=== PATIENT | female | born 1985 | race Caucasian/White ===

== ENCOUNTER 2016-11-01 11:24 | Emergency (ER) | payer OTHER ==
[~2016-11-01] VITALS: Ht 165.1 cm; Wt 147.6 kg
[~2016-11-01 11:24] MED LIST: CITA20TA9 PO; OXYC-57 PO
[2016-11-01 11:28] VITALS: TEMP 36.4; Ht 165.1 cm; Wt 147.6 kg
[2016-11-01] MEDS ORDERED: ALBUT/IPRATROP 3MG/0.5MG NEB 3 ML VIAL INH STA (11:53)
[2016-11-01] MEDS ORDERED: DULO-24 PO (11:56)
[2016-11-01] MEDS ORDERED: PHEN-905 PO (11:58)
[2016-11-01] MEDS ORDERED: GUAI1TAB69 PO (11:58)
--- NOTE | 2016-11-01 12:33 | DIAGNOSTIC IMAGING REPORT ---
CHEST 2 VIEWS ROUTINE CLINICAL HISTORY: cough, congestion COMPARISON STUDY: 04/08/2009 FINDINGS: The cardiac and mediastinal contours are normal. There is no evidence of focal pulmonary consolidation. There is no evidence of failure. No pleural effusions are visualized.[ IMPRESSION: No active disease in the chest. Electronically signed by: Schuyler Hickey M.D. 11/01/2016 12:31 PM Dictated Date/Time: 11/01/2016 12:31 PM
[2016-11-01 13:30] VITALS: BP 154/98; PULSE 84; O2SAT 97
[2016-11-01] MEDS ORDERED: VNTHFA/IN INH (13:32)
[2016-11-01] MEDS ORDERED: PRED20TA PO (13:32)
--- NOTE | 2016-11-01 15:43 | EMERGENCY ROOM VISIT NOTE ---
History Report prepared by Justine: Leoncio Kahn Under the Supervision of: Dr. Edil May M.D. First contact with patient: 11:40 Chief Complaint: COUGH Stated Complaint: COUGH, CHEST CONGESTION, BOYLE, FEVER Nursing Triage Summary: Triage note: pt wearing mask in triage. pt reports cough with brown sputum. pt reports head and chest congestions. pt reports symptoms x 3 days. History of Present Illness The patient is a 31 year old female who presents to the Emergency Room with complaints of a persistent cough starting about 3 days ago. She notes brown sputum production. The cough worsens at night. She also reports nasal and chest congestion, and intermittent chest pain. Two days ago, she had a vomiting episode which mostly consisted of phlegm. She has been taking Mucinex and NyQuil with some relief. The patient denies fevers, nausea, abdominal pain, or any other complaints. She denies any history of asthma, COPD, or diabetes. The patient has a history of bronchitis and reports similar symptoms. She received her flu shot this year. She had recent contact at work with two patients who had the flu. Source of History: patient Onset: about 3 days ago Position: other (global) Quality: other (cough) Timing: other (persistent) Modifying Factors (Relieving): other (Mucinex and NyQuil with some relief) Associated Symptoms: + chest pain, + vomiting, No abdominal pain, No fevers , No nausea Review of Systems See HPI for pertinent positives & negatives. A total of 10 systems reviewed and were otherwise negative. Past Medical & Surgical Medical Problems: (1) Anxiety State Nos (2) Cholelith W Ac Cholecyst (3) Deliver-Single Liveborn (4) Dysmenorrhea (5) Morbid Obesity (6) Tobacco Use Disorder (7) Urin Tract Infection Nos Family History No significant family history Social History Smoking Status: Current Every Day Smoker Alcohol Use: occasionally Drug Use: none Marital Status: Housing Status: lives with family Occupation Status: employed Current/Historical Medications Scheduled Albuterol Hfa (Ventolin Hfa), 3 PUFFS INH Q4H Duloxetine HCl (Cymbalta), 20 MG PO DAILY Guaifenesin (Mucinex Maximum Strength), 1,200 MG PO BID Vvkppybgeblvp-Ctydbscwoz-Xismu (Nyquil Severe Cold/Flu 5-6.25-10-325 mg/15Ml), 15 ML PO Q6H Prednisone (Prednisone), 0 PO DAILY Allergies Coded Allergies: No Known Allergies (Verified , ?, 11/01/16) Physical Exam Vital Signs Date Time Temp Pulse Resp B/P Pulse Ox O2 Delivery O2 Flow Rate FiO2 11/01/16 13:30 84 20 154/98 97 11/01/16 11:28 36.4 98 18 170/107 96 Room Air Physical Exam GENERAL: Patient is in no acute distress. HEENT: No acute trauma, normocephalic atraumatic, mucous membranes moist, mild nasal congestion, no throat erythema or exudate, no scleral icterus. NECK: No stridor, no adenopathy, no meningismus, trachea is midline. LUNGS: Diminished breath sounds, breath sounds are equal; no wheezing or rhonchi. Moist cough noted. HEART: Without murmurs gallops or rubs, regular rate and rhythm. ABDOMEN: Soft, nontender, bowel sounds positive, no hernias, no peritonitis. EXTREMITIES: No cyanosis or edema, full range of motion of all the joints without pain or difficulty, no signs for acute trauma. NEUROLOGIC: Oriented x 3, no acute motor or sensory deficits, no focal weakness. SKIN: No rash, no jaundice, no diaphoresis. Medical Decision & Procedures ER Provider Diagnostic Interpretation: X-ray results as stated below per interpretation by me and the radiologist: CHEST 2 VIEWS ROUTINE CLINICAL HISTORY: cough, congestion COMPARISON STUDY: 04/08/2009 FINDINGS: The cardiac and mediastinal contours are normal. There is no evidence of focal pulmonary consolidation. There is no evidence of failure. No pleural effusions are visualized.[ IMPRESSION: No active disease in the chest. Electronically signed by: Schuyler Hickey M.D. 11/01/2016 12:31 PM Dictated Date/Time: 11/01/2016 12:31 PM Laboratory Results Test 11/01/16 12:10 Influenza Type A Antigen Neg for Influ A (NEG) Influenza Type B Antigen Neg for Influ B (NEG) Laboratory results reviewed by me. Medications Administered Medications (Trade) Dose Ordered Sig/Robert Route Start Time Stop Time Status Last Admin Dose Admin Prednisone (PredniSONE TAB) 60 mg NOW STAT PO 11/01/16 11:53 11/01/16 11:55 DC 11/01/16 12:06 60 MG Albuterol/ Ipratropium (Duoneb) 3 ml NOW STAT INH 11/01/16 11:53 11/01/16 11:55 DC 11/01/16 12:06 3 ML ED Course 1140: The patient was evaluated in room B07. A complete history and physical exam was performed. 1153: DuoNeb 3 ml INH, Prednisone 60 mg PO 1328: Reevaluated the patient. Discussed results and discharge instructions: She verbalized understanding and agreement. The patient is ready for discharge. Medical Decision Differential diagnosis includes but is not limited to pneumonia, bronchitis, influenza, viral illness. The patient presents with upper respiratory symptoms. Chest x-ray does not show pneumonia or CHF. Influenza testing is negative. On exam, there was no pharyngitis. The patient's lungs were equal bilaterally although somewhat diminished bilaterally, no wheezing. She was not febrile or hypoxic. The patient received a DuoNeb, oral prednisone. She is being discharged on a prednisone taper, albuterol. Rest and hydration were encouraged. She appears to have a viral acute bronchitis, she can return if worsening. Impression Primary Impression: Acute bronchitis Scribe Attestation The scribe's documentation has been prepared under my direction and personally reviewed by me in its entirety. I confirm that the note above accurately reflects all work, treatment, procedures, and medical decision making performed by me. Departure Information Dispostion Home / Self-Care Prescriptions Prednisone (Prednisone) 20 Mg Tab 0 PO DAILY, #18 TAB 3 DAILY FOR 3 DAYS, THEN 2 DAILY FOR 3 DAYS, THEN 1 DAILY FOR 3 DAYS. Prov: Edil May M.D. 11/01/16 Albuterol Hfa (VENTOLIN HFA) 200 Puffs/42026 Mcg Aers 3 PUFFS INH Q4H, #1 INHALER Prov: Edil May M.D. 11/01/16 Referrals Ijeoma Zamora D.O. Forms HOME CARE DOCUMENTATION FORM, IMPORTANT VISIT INFORMATION Patient Instructions My [facility] Additional Instructions fluids rest continue the otc meds as needed tylenol for pain and fever albuterol 3 puffs every 4 hours prednisone as directed return for worsening symptoms
== END 2016-11-01 13:53 | disposition home or self-care (01) ==
LOC: C.EDB 11:25
DX: J20.9 Acute bronchitis, unspecified (principal); R11.10 Vomiting, unspecified; E66.01 Morbid (severe) obesity due to excess calories; F41.9 Anxiety disorder, unspecified; F17.200 Nicotine dependence, unspecified, uncomplicated; Z79.52 Long term (current) use of systemic steroids; Z79.899 Other long term (current) drug therapy

== ENCOUNTER 2017-01-20 17:42 | Emergency (ER) | payer BC, OTHER ==
[~2017-01-20] VITALS: Ht 165.1 cm; Wt 145.7 kg
[~2017-01-20 17:42] MED LIST changes: -CITA20TA9 PO; +DULO-24 PO; +GUAI1TAB69 PO; -OXYC-57 PO; +PHEN-905 PO; +PRED20TA PO; +VNTHFA/IN INH
[2017-01-20 18:17] VITALS: TEMP 37.5; Ht 165.1 cm; Wt 145.7 kg
[2017-01-20] MEDS ORDERED: CITA20TA9 PO (19:06)
[2017-01-20] MEDS ORDERED: CYCLOBENZAPRINE HCL 5 MG TAB PO STA (19:15)
[2017-01-20] MEDS ORDERED: CYCL10TA6 PO (19:19)
[2017-01-20] MEDS ORDERED: TRAM-10 PO (19:19)
[2017-01-20 19:36] VITALS: BP 156/100; PULSE 76; O2SAT 97
[2017-01-20] MEDS ORDERED: CYCLOBENZAPRINE HCL 10 MG TAB ONE (19:36)
--- NOTE | 2017-01-21 20:33 | EMERGENCY ROOM VISIT NOTE ---
ED Visit Note First contact with patient: 18:55 Chief Complaint: Neck pain. History of Present Illness: Ms. Krueger is a 31-year-old white female who ambulates into the ED complaining of thoracic back and neck pain. 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 She was initially evaluated by [employer] an MRI was performed and was negative. They felt her pain was not related to this injury and she was dismissed from [employer]. She goes on to report that over the last year she has had multiple exacerbations of her pain and has been seen in this ED as well as her primary care provider for her symptoms. 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 She went to work and her pain escalated and she left work to come to the ED for further evaluation and care. Currently she complains of pain that extends from the lower cervical spine extending inferiorly into the area between the scapula. Currently she describes her pain as a sharp and cramping sensation. She feels this is muscle spasm. She rates her discomfort 8/10. All movements of her back and palpation throughout the trapezius and rhomboid muscle groups increases her discomfort. She has not identified any alleviating factors related to the pain. She did report she took ibuprofen prior to arrival at the hospital without relief. She denies any associated fevers, chills, sweats, skin eruptions, skin color changes , recent direct trauma, headache, upper respiratory tract symptoms, shortness of breath, abdominal pain, urinary symptoms, upper extremity weakness/numbness/ tingling. Review of Systems: As noted above in history of present illness. 8 body systems were reviewed and found to be negative as noted above. Past Medical History: As previously noted, unspecified oral surgery, section and cholecystectomy. Current Medications: Celexa. Allergies to Medications: Patient denies. Social History: Patient is currently employed; she feels safe in her home environment; she admits to tobacco use and denies alcohol use. Physical Examination: Vital Signs: Date Time Temp Pulse Resp B/P Pulse Ox O2 Delivery O2 Flow Rate FiO2 01/20/17 19:36 76 18 156/100 97 01/20/17 18:17 37.5 81 17 169/115 98 Room Air GENERAL: 31-year-old female in moderate distress due to pain, nontoxic-appearing , afebrile and hemodynamically stable. NEUROLOGICAL: Awake, alert and oriented to person, place and time. Answering questions appropriately and following commands. Normal gait. Good hand eye coordination. No focal motor or sensory deficits. SKIN: Warm, dry and pink. No soft tissue eruptions or trauma noted. HEENT: Atraumatic and normocephalic. PERRLA. Sclera white and conjunctiva pink. No drainage from naris. Oral cavity moist and pink. Pharynx is nonerythematous or edematous. Speech normal. No lymphadenopathy. Trachea midline. No jugular venous distention. BACK: No tenderness over the bony cervical and thoracic spine. No CVA tenderness. Moderate tenderness throughout the bilateral paraspinous muscles of the lower cervical and thoracic vertebrae. This area is obviously in spasm. THORAX: Lungs sounds are clear to auscultation and equal bilaterally with symmetrical chest wall. ABDOMEN: Flat, soft and nontender. Positive bowel sounds in all quadrants. No guarding, rigidity or organomegaly. UPPER EXTREMITIES: No tenderness over the joints of the shoulder, elbow, forearm. 5/5 muscle strength in all movements of the shoulder, elbow and forearm. 2+ bicipital, tricipital and brachial radialis deep tendon reflexes. Capillary refill is brisk and she was able to distinguish light sensations through all dermatomes of the extremity. ED Course: Patient is assessed as noted above. Patient was given 10 mg of Flexeril by mouth for her discomfort. I also had a lengthy conversation with the patient she reports she has a history of hypertension but has not able to follow-up with her family physician for medications; she was encouraged to immediately follow-up with her family physician to at least have her blood pressure rechecked and possibly treated. Patient was educated about tonight's findings and instructed on her treatment plan; she verbalizes understanding and agreement with this plan. Clinical Impression: Spasm of thoracic back muscles. Disposition: Patient was discharged home in stable condition; prior to departure she was reassessed and subjectively reported she was feeling slightly better. Plan: Patient was prescribed Flexeril and Ultram and instructed on their use. Other comfort measures of ice and proper lifting and moving techniques were discussed with the patient. Patient was encouraged to follow-up with her primary care provider for recheck and evaluation of her blood pressure. Patient was encouraged return to the ED for worsening pain, uncontrolled spasm, upper extremity weakness/numbness/tingling or any new/concerning symptoms.
== END 2017-01-20 19:37 | disposition home or self-care (01) ==
LOC: C.EDB 17:43 → C.EDD 19:37
DX: M62.838 Other muscle spasm (principal); F17.200 Nicotine dependence, unspecified, uncomplicated; Z90.49 Acquired absence of other specified parts of digestive tract

== ENCOUNTER 2023-12-02 07:30 | Inpatient (IN) ==
--- NOTE | 2023-11-19 13:12 | Anesthesiology Consultation ---
Date of Service November 19, 2023 Assessment & Plan (1) Encounter for pre-operative examination: Plan - to chart review, records from 2008 delivery not available. See patient concern as noted above under anesthesia considerations and patient feeling epidural at that time was not effective. - Per certified ophthalmic surgical assistant on 11/19/23: No known infectious disease contacts, current infectious disease symptoms in past 10 days or COVID positive test result in the past 30 days. Chart Review Chart Review: knot picker cloth initiated History Surgery Operation Date: 12/03/23 07:30 Proposed Procedures p Primary Section in LD - Angel Loera MD Height/Weight Height: 5 ft 5 in Weight: 154.221 kg Allergies Allergy/AdvReac Type Severity Reaction Status Date / Time No Known Allergies Allergy Verified 11/19/23 12:25 Medications Home Medications Medication Instructions Recorded Confirmed Last Taken aspirin 81 mg tablet,delayed 81 mg PO QAM 11/19/23 11/19/23 Unknown release cyanocobalamin (vitamin B-12) 1,000 mcg PO QAM 11/19/23 11/19/23 Unknown 1,000 mcg tablet (Vitamin B-12) ferrous sulfate 325 mg (65 mg 325 mg PO BID 11/19/23 11/19/23 Unknown iron) tablet (iron) labetalol 100 mg tablet 50 mg PO BID 11/19/23 11/19/23 Unknown omeprazole 20 mg capsule,delayed 20 mg PO QAM 11/19/23 11/19/23 Unknown release prenat.vits,cirilo,knj-ntmk-lkfgi 1 tab PO QAM 11/19/23 11/19/23 Unknown valacyclovir 500 mg tablet 0 mg PO UD PRN Cold Sores 11/19/23 11/19/23 Unknown (Valtrex) Past Medical History Medical History Anxiety hx Frequent UTI with pregancy/most recent Jun 2023. Heartburn History of anesthesia reaction with c/s in 2008 had epidural for emergency c/s and didn't work could feel pain during c/s. History of depression History of depression HTN (hypertension) Positive GBS test Unique anesthetic considerations on preoperative anesthesia assessment pt concerned about having spinal with upcoming c/s due to hx of epidural with prior c/s that didn't work. Past Surgical History Surgical History History of 2008 Hx of cholecystectomy [place] teeth removed Social History Smoking Status: Former smoker Do You Dip or Chew Tobacco: No Smoking End Date: April 2023 Hx Alcohol Use: Yes (social drinking till day i found out /nothing since.) Hx Substance Use: No substance use type: does not use
--- OUTSIDE RECORDS SUMMARY | 2023-12-03 05:42 | External Medical Summary | Summary of Care ---
Author Name Unknown Organization [facility] Address [address] [place] [address] Phone [phone] Care Team Providers Care Solid Die Cutter Name Role Phone [place] Ijeoma Lela HOLLIDAY Primary Care Provider [phone] Encounter Details Date Type Department Care Team (Late st Contact Info) Description 11/06/2023 9:30 AM EST Office Visit [facility], [address] [address] Rosa Maria Mortensen [address], [place] [id number] Chronic hypertension in *; Obesity in , antepartum; Excessive growth affecting management of in third trimester, single or unspecified fetus; Ultrasound for screening for growth restriction; 36 weeks gestation of Allergies No known active allergiesdocumented as of this encounter (statuses as of 11/10/2023) Medications Medication Sig Dispensed Refills Start Date End Date Status valACYclovir HCl 1 GM Oral Tablet (Valtrex)Indications: Recurrent cold sores Take 2 Tablets by mouth in the morning and 2 Tablets before bedtime. For 1 day for cold sores. 4 Tablet 11 12/10/2022 Active Omeprazole 20 MG Oral Capsule Delayed Release (PriLOSEC) Take 1 Capsule by mouth in the morning. 1 hour before the first meal of the day. 90 Capsule 11 12/10/2022 Active Labetalol HCl 100 MG Oral Tablet (Normodyne) Take 0.5 Tablets by mouth in the morning and 0.5 Tablets before bedtime. 60 Tablet 3 04/10/2023 Active 19 29-1 MG Oral Tablet Chewable Take by mouth. 0 Active Iron 325 (65 Fe) MG Oral TabletIndications:Ant epartum anemia complicating ,Maternal vitamin B12 deficiency Take 1 Tablet by mouth in the morning and 1 Tablet before bedtime. 60 Tablet 3 09/03/2023 Active Vitamin C 250 MG Oral Tablet ChewableIndications:A ntepartum anemia complicating ,Maternal vitamin B12 deficiency Take 1 Tablet by mouth in the morning and 1 Tablet before bedtime. Take with iron. 60 Tablet 3 09/03/2023 Active Vitamin B-12 1000 MCG Oral Tablet (Cyanocobalamin)Indic ations:Antepartum anemia complicating ,Maternal vitamin B12 deficiency Take 1 Tablet by mouth in the morning. 30 Tablet 3 09/03/2023 Active Hospital, Clinic, or Other Facility Administered Medication Ordered Dose Route Frequency Start Date End Date Status vitamin b-12 (Cyanocobalamin) inj 1,000 mcgIndications:Vitamin B 12 deficiency 1000 mcg IM [id number] 05/13/2023 04/13/2024 Active vitamin b-12 (Cyanocobalamin) inj 1,000 mcgIndications:Vitamin B 12 deficiency 1000 mcg IM [id number] 09/19/2023 08/20/2024 Active documented as of this encounter (statuses as of 11/10/2023) Active Problems Problem Noted Date Diagnosed Date Excessive growth affec ting management of in third trimester 10/16/2023 Last Assessment & Plan: LGA noted today with EFW at 99%ile. Dieudonne with h/o macrosomia and planning repeat c/s. Of note, 1 abnormal value on 3'GTT. Consider repeat 3'GTT vs FSBS screening to r/o GDM as cause for macrosomia. Antepartum anemia complicating 023 Overview: Hgb 10.7 at 26 wks, rx for iron Maternal vitamin B12 deficiency 09/03/2023 Overview: Start supplement 26w5d High thyroid stimulating hormone (TSH) level Overview: Ask a Doc sent to [facility] for recommendations, see encounter 09/03. Normal T3/T4 Urinary tract infection in m other during second trimester of 07/08/2023 Overview: +E coli, Keflex sent 18w 4d Neg DONNA at 22 wks History of delivery of macrosomal 023 Overview: 1st baby 9lb 6oz B12 deficiency 05/08/2023 Supervision of high-risk , third trimes ter 05/07/2023 Overview: Estimated Date of Delivery: 12/05/23 Continue vitamin. O positive. Rubella immune. S/p MATERNAL MEDICINE anatomy ultrasound. Passed 1 hour glucose test. CBC shows anemia - on iron and vitamin B12. Tdap vaccine completed. GBS culture at 36 weeks. Obesity in , antepartum 05/07/2023 Overview: Pregravid BMI 55.64 No results found for: 50-G GESTATIONAL GLUCOSE Early glucose screen ordered; not complete to date Last Assessment & Plan: I reviewed the ultrasound with her. The anatomy that was visualized appears unremarkable the biometry is appropriate for the gestational age. The fetus is in the breech presentation the anatomy that was visualized appears unremarkable. Chronic hypertension in 05/07/2023 Overview: Obtain baseline lab work MICHAEL (if not already done) with assessment of proteinuria (24-hour urine protein or bogbufc-qp-rxeraiicmu ratio) and CBC, serum AST/ALT/creatinine. If patient has had hypertension for 10 years or more, obtain an EKG and eye exam (if not performed within the past year). Recommend initiation of aspirin (81mg) daily, from 13 weeks until delivery, to decrease the risk of superimposed preeclampsia. Daily home blood pressure monitoring, especially in the second half of the . ? It may be useful to have the patient validate their home device with their primary OB care provider's office. Patients with BP less than 140/90maintained with antihypertensivesshould continue medication during . Discontinuation of ELIZABETH inhibitors or angiotensin type II receptor antagonists under the guidance of the primary care physician prior to conception of or upon knowledge of . Initiate or adjust antihypertensive medication if BP is140/90 or greater on at least two occasions at least 4 hours apart and refer patient back to Maternal- Medicine. Titrate medication to maintain blood pressure in a goal range 120-140/70-90. ? Labetalol and Nifedipine are considered safe for use in and these agents are considered as first-line therapy when indicated. Maternal Medicine ultrasound for anatomy at 19-20 weeks. surveillance as follows: ? If NOT being treated with anti-hypertensives: - Maternal- Medicine ultrasound for growth between 28-30 weeks ? If being treated with anti-hypertensives: - Maternal- Medicine ultrasound for growth every 4 weeks starting at 24-26 weeks - surveillance weekly starting at 32 weeks gestation Delivery should beindividualized based on blood pressure control and assessment of patient riskand is indicated as follows: For those with stable blood pressures not on anti-hypertensive medications: - Between 38 0/7 and 39 6/7 weeks For those on anti-hypertensive medications: - Between 37 0/7 and 39 6/7 weeks Diagnosed in 2019 Managed with Labetalol BP Readings from Last 5 Encounters: 05/13/23 118/64 05/07/23 118/78 04/25/23 122/80 12/10/22 132/80 06/28/21 132/82 Does not currently had a home blood pressure cuff Baseline Preeclampsia Labs Lab Results Component Value Date/Time PLATELET AUTO - [facility] 372 05/07/2023 11:21 AM CREATININE - [facility] 0.6 05/07/2023 11:21 AM CREATININE - [facility] 0.9 11/03/2019 11:35 AM AST - [facility] 16 05/07/2023 11:21 AM ALT - [facility] 8 (L) 05/07/2023 11:21 AM PROTEIN/ CREATININE RATIO, URINE - [facility] <93 05/07/2023 11:06 AM Encouarged aspirin 81 mg therapy at 13 weeks (05/30/23) Last Assessment & Plan: Considerations: Women with chronic hypertension during are at significantly increased risk for morbidity. Signs and symptoms of superimposed pre-eclampsia were reviewed; instructed patient to contact primary OB care provider if these symptoms occur. Recommendations: Obtain baseline lab work MICHAEL (if not already done) with assessment of proteinuria (24-hour urine protein or pdrvayg-xx-sqkvixcibw ratio) and CBC, serum AST/ALT/creatinine. If patient has had hypertension for 10 years or more, obtain an EKG and eye exam (if not performed within the past year). Recommend initiation of aspirin (81mg) daily, from 13 weeks until delivery, to decrease the risk of superimposed preeclampsia. Daily home blood pressure monitoring, especially in the second half of the . o It may be useful to have the patient validate their home device with their primary OB care provider's office. Patients with BP less than 140/90 maintained with antihypertensives should continue medication during . Discontinuation of ELIZABETH inhibitors or angiotensin type II receptor antagonists under the guidance of the primary care physician prior to conception of or upon knowledge of . Initiate or adjust antihypertensive medication if BP is 140/90 or greater on at least two occasions at least 4 hours apart and refer patient back to Maternal- Medicine. Titrate medication to maintain blood pressure in a goal range 120-140/70-90. o Labetalol and Nifedipine are considered safe for use in and these agents are considered as first-line therapy when indicated. Maternal Medicine ultrasound for anatomy at 19-20 weeks. surveillance as follows: o If NOT being treated with anti-hypertensives: - Maternal- Medicine ultrasound for growth between 28-30 weeks o If being treated with anti-hypertensives: - Maternal- Medicine ultrasound for growth every 4 weeks starting at 24-26 weeks - surveillance weekly starting at 32 weeks gestation Delivery should be individualized based on blood pressure control and assessment of patient risk and is indicated as follows: For those with stable blood pressures not on anti-hypertensive medications: - Between 38 0/7 and 39 6/7 weeks For those on anti-hypertensive medications: - Between 37 0/7 and 39 6/7 weeks H/O section 05/07/2023 Overview: Prior c/s for arrest of descent, baby 9lb6oz. Vertical skin incision, unknown uterine incision. Delivered at [facility], OR report in chart. Low transverse uterine incision noted. AMA (advanced maternal age) multigravida 35+ Overview: Age 38 at EDC Opted out of genetic screening Last Assessment & Plan: CONSIDERATIONS: We reviewed the most pertinent aspects of the following: Advanced maternal age (AMA) refers to a woman with a ballard who will be at the age of 35 or older at the estimated time of delivery and may be associated with increased morbidity. After discussion of the genetic screening/testing options, the patient declines genetic screening and testing. In addition to the risk of chromosomal abnormalities, there is an increased risk of congenital/structural anomalies. RECOMMENDATIONS: Recommend MFM anatomy ultrasound at 19-20 weeks gestation. Body mass index (BMI) of 50.0 to 59.9 in adult 1 Overview: Per Obesity protocol #1 HTN, goal below 140/90 01/21/2017 Anxiety and depression 01/07/2017 Heartburn 01/07/2017 Joint pain 01/07/2017 Migraine with aura and witho ut status migrainosus, not intractable 01/07/2017 Irritable bowel syndrome with diarrhea 7 Spasm of muscle 04/07/2007 Urinary frequency 09/03/2006 Tobacco use disorder 09/03/2006 Estimated Date of Delivery Comme nts Yes 12/05/2023 Based on last me nstrual period of 02/28/2023 documented as of this encounter (statuses as of 11/10/2023) Resolved Problems Problem Noted Date Diagnosed Date Resolved Date Other known or suspected fet al abnormality, not elsewhere classified, affecting management of mother, unspecified as to episode of care 07/26/2008 01/07/2017 Overview: echogenic bowel suspected on outside scan with poor reproductive history 07/26/2008 01/07/2017 Overview: ICD-10 update of inactive term ADVANCE DIRECTIVE INFORMATION 07/18/2008 01/07/2017 Overview: No, Advance Directive brochure offered , patient declined. Backache 04/07/2007 12/05/2020 Morbid obesity, BMI not known 04/07/2007 07/24/2017 ACUTE CYSTITIS 09/03/2006 12/15/2008 Overview: Resolved per Benign Acute Dxs Protocol #3 Dysuria 09/03/2006 01/07/2017 ACUTE URI NOS 09/03/2006 12/08/2008 Overview: Resolved per Benign Acute Dxs Protocol #3 Chronic rhinitis 09/03/2006 01/07/2017 documented as of this encounter (statuses as of 11/10/2023) Immunizations Name Administration Dates Next Due COVID-19, mRNA, LNR-S, Bival ent, PF, 3 mcg/0.2 ml (Project Playlist) 6m to 4 years 07/26/2022 Covid-19 Ad26, Single Dose (Carla/J&J) 021 PPD 05/13/2023,06/28/2021,09/08/2017 Seasonal Influenza, PF, 6 M & above, IM , (FluLaval or Fluzone) 08/05/2023,06/28/2021,07/22/2017 Seasonal Influenza, Quadriva lent, No Preserve, IM 07/26/2022,07/25/2016 Seasonal Influenza, Split, I IV3, With Preserve, Inj 08/11/2015 TDAP (age 10 and older)(Boostrix) 09/30/2023, documented as of this encounter Social History Tobacco Use Types Packs/Day Years Used Date Smoking Tobacco: Former Cigarettes 0.5 Q uit: 03/20/2023 Smokeless Tobacco: Never Comments:10 per day-started age 17 Alcohol Use Standard Drinks/Week Comments Not Currently 0 (1 standard drink = 0.6 oz pure alcohol) rare - several times per year AUDIT-C Answer Date Recorded Q1: How often do you have a drink containing alc ohol? Monthly or less 06/28/2021 Q2: How many drinks containi ng alcohol do you have on a typical day when you are drinking? Not asked 06/28/2021 Q3: How often do you have si x or more drinks on one occasion? Not asked 06/28/2021 PHQ-2 Answer Date Recorded PHQ Adult Total Score 0 05/13/2023 Hunger Vital Sign Answer Date Recorded Within the past 12 months, y ou worried that your food would run out before you got the money to buy more. Never true 05/07/20 23 Within the past 12 months, t he food you bought just didn't last and you didn't have money to get more. Never true 05/07/2023 Estimated Date of Delivery Comme nts Yes 12/05/2023 Based on last me nstrual period of 02/28/2023 Sex and Gender Information Value Date Recorded Sex Assigned at Female 11/03/2019 10:58 AM EST Gender Identity Female 11/03/2019 10:58 AM EST Sexual Orientation Straight 11/03/2019 10 :58 AM EST Job Start Date Occupation Industry Not on file Not on file Not on file documented as of this encounter Progress Notes * Rosa Maria Mortensen DO - 11/10/2023 9:27 AM EST Dieudonne presented for an ultrasound for the following indications: Chronic hypertension in Obesity in , antepartum Excessive growth affecting management of in third trimester, single or unspecified fetus Ultrasound for screening for growth restriction 36 weeks gestation of Ultrasound summary: Patient presented for growth assessment at 35w 6d. Large AC noted at >99% with overall EFW of 3161 g at 85%. SANJAY 20.4 cm. Breech presentation. I reviewed the ultrasound images. Dieudonne was given the opportunity to meet with me if she had any questions. Please refer to the ultrasound report for additional details about today's ultrasound examination. RECOMMENDATIONS: Follow up with MFM for ultrasound as clinically indicated. See prior formal MFM consultation note. Thank you for allowing us to participate in the care of this patient. Please call with any questions. Rosa Maria Mortensen DO 11/10/2023 9:27 AM documented in this encounter Plan of Treatment Upcoming Encounters Date Type Department Care Team (Late st Contact Info) Description 11/12/2023 11:15 AM EST Office Visit Gynecology/Obstetrics Lillian Kevin [address] [place] [place] [address] Cholo Terry MD [address] [place] [address] Sheri Kevin Stress Tests Arnold [address] [place] [address] 11/19/2023 10:15 AM EST Office Visit Gynecology/Obstetrics [facility] [address] [place] [address] Nicole Burns CRNP [address] [place] [address] Kevin, Non Stress Tests [facility] [address] [place] [address] 11/26/2023 10:00 AM EST [facility] [address] [place] [address] Nicole Burns CRNP [address] [place] [address] Herberth Non Stress Tests [facility] [address] [place] [address] 12/11/2023 12:00 PM EST Office Visit Gynecology/Obstetrics [facility] [address] [place] [address] Nicole Burns CRNP [address] [place] [address] Health Maintenance Due Date Last Done Comments Hepatitis B (1 of 3 - 3-dose series) 1986 COVID-19 Vaccine ( season) 2023 07/26/2022, 03/30/2021 Depression Screening 05/13/2024 05/13/2023 GFR 09/02/2024 09/02/2023, 04/19, 11/03/2019, Additional history exists Diabetes Screening 05/07/2026 05/07/2023, 0 05/07/2023, 11/03/2019, Additional history exists Pap Smear 05/07/2026 05/07/2023, 10/20, 02/14/2009 (Done elsewhere) Cervical Cancer Screening 05/07/2028 HPV/Co-Test 05/07/2028 05/07/2023 DTaP,Tdap,and Td Vaccines (3 - Td or Tdap) 09/30/2033 09/30/2023, 01/07/2017 Influenza Vaccine (FLU shot) Completed , 07/26/2022, 06/28/2021, Additional history exists GARDASIL-HPV IMMUNIZATION SERIES Aged Out No longer eligible based on patient's age to complete this topic MENINGOCOCCAL (MENACTRA/MENVEO) Aged Out No longer eligible based on patient's age to complete this topic Pneumococcal Vaccine: Pediatrics (0 to 5 Years) and At-Risk Patients (6 to 64 Years) Aged Out No longer eligible based on patient's age to complete this topic documented as of this encounter Medical Devices Not on filedocumented as of this encounter Visit Diagnoses Diagnosis Chronic hypertension in - Primary Benign essential hypertension complicating , childbirth, and the puerperium, unspecified as to episode of care Obesity in , antepartum Obesity complicating , childbirth, or the puerperium, antepartum condition or complication Excessive growth affecting management of in third trimester, single or unspecified fetus Ultrasound for screening for growth restriction screening for growth retardation using ultrasonics 36 weeks gestation of state, incidental documented in this encounter Care Teams Solid Die Cutter Relationship Specialty Start Date End Date Ijeoma Kaplan DO [address] [place] [address] PCP - General Family Medicine 07/22/17 documented as of this encounter
--- OUTSIDE RECORDS SUMMARY | 2023-12-03 05:42 | External Medical Summary | Summary of Care ---
Author Name Unknown Organization [facility] Address [address] [place] [address] Phone [phone] Care Team Providers Care It Software Engineer Name Role Phone Max Chicas DO Primary Care Provider Reason for Visit * Reason Comments eRx-Medication Refill Encounter Details Date Type Department Care Team (Late st Contact Info) Description 11/25/2023 Refill [facility] [address] [place] [address] Max Chicas DO [address], [place] [phone] Allergies No known active allergiesdocumented as of this encounter (statuses as of 11/28/2023) Medications Medication Sig Dispensed Refills Start Date End Date Status valACYclovir HCl 1 GM Oral Tablet (Valtrex)Indicatio ns:Recurrent cold sores Take 2 Tablets by mouth in the morning and 2 Tablets before bedtime. For 1 day for cold sores. 4 Tablet 11 12/10/2022 Active Omeprazole 20 MG Oral Capsule Delayed Release (PriLOSEC) Take 1 Capsule by mouth in the morning. 1 hour before the first meal of the day. 90 Capsule 11 12/10/2022 Active 19 29-1 MG Oral Tablet Chewable Take by mouth. 0 Active Iron 325 (65 Fe) MG Oral TabletIndications: Antepartum anemia complicating ,Maternal vitamin B12 deficiency Take 1 Tablet by mouth in the morning and 1 Tablet before bedtime. 60 Tablet 3 09/03/2023 Active Vitamin C 250 MG Oral Tablet ChewableIndication s:Antepartum anemia complicating ,Maternal vitamin B12 deficiency Take 1 Tablet by mouth in the morning and 1 Tablet before bedtime. Take with iron. 60 Tablet 3 09/03/2023 Active Vitamin B-12 1000 MCG Oral Tablet (Cyanocobalamin)In dications:Antepart um anemia complicating ,Maternal vitamin B12 deficiency Take 1 Tablet by mouth in the morning. 30 Tablet 3 09/03/2023 Active Labetalol HCl 100 MG Oral Tablet (Normodyne) Take 1/2 (one-half) tablet by mouth twice daily 60 Tablet 1 11/28/2023 Active Labetalol HCl 100 MG Oral Tablet (Normodyne) Take 0.5 Tablets by mouth in the morning and 0.5 Tablets before bedtime. 60 Tablet 3 04/10/2023 Discontinued Hospital, Clinic, or Other Facility Administered Medication Ordered Dose Route Frequency Start Date End Date Status vitamin b-12 (Cyanocobalamin) inj 1,000 mcgIndications:Vitamin B 12 deficiency 1000 mcg IM [id number] 05/13/2023 04/13/2024 Active vitamin b-12 (Cyanocobalamin) inj 1,000 mcgIndications:Vitamin B 12 deficiency 1000 mcg IM [id number] 09/19/2023 08/20/2024 Active documented as of this encounter (statuses as of 11/28/2023) Active Problems Problem Noted Date Diagnosed Date [...] level Overview: Ask a Doc sent to [facility] for recommendations, see encounter 09/03. Normal T3/T4 Urinary tract infection in m other during second trimester of 07/08/2023 Overview: +E coli, Keflex sent 18w 4d Neg DONNA at 22 wks History of delivery of macrosomal infant 023 Overview: 1st baby 9lb 6oz B12 [...] assessment of proteinuria (24-hour urine protein or jdxyqoy-gx-yokyebhvrz ratio) and CBC, serum AST/ALT/creatinine. If patient [...] assessment of proteinuria (24-hour urine protein or ochoqjx-zf-fasjzhhmhd ratio) and CBC, serum AST/ALT/creatinine. If patient [...] skin incision, unknown uterine incision. Delivered at [facility], OR report in chart. Low transverse uterine [...] as of this encounter (statuses as of 11/28/2023) Resolved Problems Problem Noted Date Diagnosed Date [...] as of this encounter (statuses as of 11/28/2023) Immunizations Name Administration Dates Next Due COVID-19, mRNA, LNR-S, Bival ent, PF, 3 mcg/0.2 ml (VoxPopMe) 6m to 4 years 07/26/2022 Covid-19 Ad26, [...] on file documented as of this encounter Miscellaneous Notes * Telephone Encounter - Max Chicas DO - 11/28/2023 8:42 AM ESTSigned Prescriptions: Disp Refills Labetalol HCl 100 MG Oral Tablet (Normodyn*60 Tab*1 Sig: Take 1/2 (one-half) tablet by mouth twice daily Authorizing Provider: MAX CHICAS * Telephone Encounter - Saw Yanez RPh - 11/26/2023 11:54 AM ESTPending Prescriptions: Disp Refills Labetalol HCl 100 MG Oral Tablet (Normodyn*60 Tab*1 Sig: Take 1/2 (one-half) tablet by mouth twice daily * Telephone Encounter - Saw Yanez RPh - 11/26/2023 11:45 AM EST Unable to authorize medication refills for pended medication(s) at this time. Part of the protocol criteria used for refill authorization was not satisfied. Patient is currently , Please review and approve if appropriate. Did you pend patient's preferred pharmacy and medication before forwarding?yes [facility] [address] [address] SANDRA GUTIERREZ Pending Prescriptions: Disp Refills Labetalol HCl 100 MG Oral Tablet (Normody*60 Tab*1 Sig: Take 1/2 (one-half) tablet by mouth twice daily Last Visit: 05/13/2023 (in office), 09/22/2023 (telemedicine) Next Visit: Visit date not found If no future appointments scheduled, and last appointment is greater than a year ago, please schedule patient for a follow-up appointment Last date the medication was ordered: 04/10/23 Is this request for a controlled substance?No Urine Drug Screen:No results found for this or any previous visit. Patient Phone Numbers Labs: Lab Results Component Value Date/Time CREAT 0.6 09/02/2023 08:01 AM CREAT 0.9 11/03/2019 11:35 AM POTASSIUM 4.2 05/07/2023 11:21 AM POTASSIUM 4.2 11/03/2019 11:35 AM TSH 5.07 (H) 09/02/2023 08:01 AM TSH 4.89 (H) 01/07/2017 10:04 AM LDLCALC 69 11/29/2015 10:40 AM ALT 8 (L) 05/07/2023 11:21 AM HGBA1C 5.5 05/07/2023 11:21 AM HGBA1C 5.5 11/03/2019 11:35 AM documented in this encounter Plan of Treatment Upcoming Encounters Date Type Department Care Team (Late st Contact Info) Description 12/11/2023 12:00 PM EST Office Visit Gynecology/Obstetrics Lillian Kevin [address] [place] [id number] Nicole Burns CRNP [address] [place] [address] Health Maintenance Due Date Last Done Comments [...] Not on filedocumented as of this encounter Care Teams It Software Engineer Relationship Specialty Start Date End Date Max Chicas DO [address] [place] [address] PCP - General Family Medicine 07/22/17 documented as of this encounter
--- OUTSIDE RECORDS SUMMARY | 2023-12-03 05:42 | External Medical Summary | Summary of Care ---
Author Name Unknown Organization [facility] Address [address] [place] [address] Phone [phone] Care Team Providers Care Underwriting Director Name Role Phone HebertdungYinkaa Lela HOLLIDAY Primary Care Provider Encounter Details Date Type Department Care Team (Late st Contact Info) Description 10/16/2023 8:00 AM EST Office Visit [employer] Inspector Obstetrics Maternal Medicine, [address] [address] Rosa Maria Mortensen [address], [place] [id number] Chronic hypertension in *; Obesity in , antepartum; Multigravida of advanced maternal age in third trimester; Excessive growth affecting management of in third trimester, single or unspecified fetus; Ultrasound for screening for growth restriction; 32 weeks gestation of Allergies No known active allergiesdocumented as of this encounter (statuses as of 10/16/2023) Medications Medication Sig Dispensed Refills Start Date [...] mcgIndications:Vitamin B 12 deficiency 1000 mcg IM [id number] 05/13/2023 04/13/2024 Active vitamin b-12 (Cyanocobalamin) inj 1,000 mcgIndications:Vitamin B 12 deficiency 1000 mcg IM [id number] 09/19/2023 08/20/2024 Active documented as of this encounter (statuses as of 10/16/2023) Active Problems Problem Noted Date Diagnosed Date [...] assessment of proteinuria (24-hour urine protein or fmgvkfw-rt-eglpsykptg ratio) and CBC, serum AST/ALT/creatinine. If patient [...] assessment of proteinuria (24-hour urine protein or pnpdpfi-eg-dbivhmdttz ratio) and CBC, serum AST/ALT/creatinine. If patient [...] skin incision, unknown uterine incision. Delivered at [facility], [place] report in chart. Low transverse uterine [...] as of this encounter (statuses as of 10/16/2023) Resolved Problems Problem Noted Date Diagnosed Date [...] as of this encounter (statuses as of 10/16/2023) Immunizations Name Administration Dates Next Due COVID-19, mRNA, LNR-S, Bival ent, PF, 3 mcg/0.2 ml ([employer]) 6m to 4 years 07/26/2022 Covid-19 Ad26, [...] Notes * Rosa Maria Mortensen DO - 10/16/2023 8:47 AM EST Dieudonne presented today at 32w6d for an ultrasound for the following indications: Chronic hypertension in Obesity in , antepartum Multigravida of advanced maternal age in third trimester Excessive growth affecting management of in third trimester, single or unspecified fetus Assessment & Plan: LGA noted today with EFW at 99%ile. Dieudonne with h/o macrosomia and planning repeat c/s. Of note, 1 abnormal value on 3'GTT. Consider repeat 3'GTT vs FSBS screening to r/o GDM as cause for macrosomia. Ultrasound for screening for growth restriction 32 weeks gestation of Ultrasound summary: Patient presented for growth assessment at 32w 6d. Large AC noted at >99% with overall EFW of 2718 g at 98%. SANJAY 17 cm. Cephalic presentation. BPP 05/27. I reviewed the ultrasound images. Dieudonne was given the opportunity to meet with me if she had any questions. Please refer to the ultrasound report for additional details about today's ultrasound examination. RECOMMENDATIONS: Recommend follow up ultrasound with MFM in 4 weeks for growth secondary to above indications. Weekly NSTs. See prior formal MFM consultation note. Thank you for allowing us to participate in the care of this patient. Please call with any questions. Rosa Maria Mortensen DO 10/16/2023 8:48 AM documented in this encounter Miscellaneous Notes * Assessment & Plan Note - Rosa Maria Mortensen DO - 10/16/2023 8:47 AM EST Associated Problem(s): Excessive growth affecting management of in third trimester LGA noted today with EFW at 99%ile. Dieudonne with h/o macrosomia and planning repeat c/s. Of note, 1 abnormal value on 3'GTT. Consider repeat 3'GTT vs FSBS screening to r/o GDM as cause for macrosomia. documented in this encounter Plan of Treatment Upcoming Encounters Date Type Department Care Team (Late st Contact Info) Description 10/16/2023 2:00 PM EST Office Visit Gynecology/Obstetric s [facility] [address] [place] [address] Mar Rhoades CRNP [address] [place] [address] [facility] Non Stress Tests Arnold [address] [place] [address] Patient left without being seen* 10/22/2023 11:15 AM EST Office Visit Gynecology/Obstetric s [facility] [address] [place] [address] Nicole Burns CRNP [address] [place] [address] [facility] Non Stress Tests Arnold [address] [place] [address] 10/30/2023 1:00 PM EST Office Visit Gynecology/Obstetric s [facility] [address] [place] [address] Mar Rhoades CRNP [address] [place] [address] [facility] Non Stress Tests Arnold [address] [place] [address] 11/05/2023 10:15 AM EST Office Visit Gynecology/Obstetric s [facility] [address] [place] [address] Nicole Burns CRNP [address] [place] [address] Kevin, Non Stress Tests Arnold [address] [place] [address] 11/06/2023 9:30 AM EST Imaging Maternal Medicine Imaging, Arnold Deans [address] [place] [address] 11/12/2023 10:15 AM EST Office Visit Gynecology/Obstetric s [facility] [address] [place] [address] Nicole Burns CRNP [address] [place] [address] Kevin, Non Stress Tests Arnold [address] [place] [address] 11/19/2023 10:15 AM EST Office Visit Gynecology/Obstetric s [facility] [address] [place] [address] Nicole Burns CRNP [address] [place] [address] Kevin, Non Stress Tests Arnold [address] [place] [address] 11/26/2023 10:00 AM EST Office Visit Gynecology/Obstetric s [facility] [address] [place] [address] Nicole Burns CRNP [address] [place] [address] [place], Non Stress Tests Arnold [address] [place] [address] 12/03/2023 10:00 AM EST Office Visit Gynecology/Obstetric s [facility] [address] [place] [address] Nicole Burns CRNP [address] [place] [address] [place], Non Stress Tests Arnold [address] [place] [address] Health Maintenance Due Date Last Done Comments [...] or the puerperium, antepartum condition or complication Multigravida of advanced maternal age in third trimester Excessive growth affecting management of in third trimester, single or unspecified fetus Ultrasound for screening for growth restriction screening for growth retardation using ultrasonics 32 weeks gestation of state, incidental Patient left without being seen- Primary Surgical or other procedure not carried out because of patient's decision documented in this encounter Care Teams Underwriting Director Relationship Specialty Start Date End Date Ijeoma Kaplan DO [address] [place] [address] PCP - General Family Medicine 07/22/17 documented as of this encounter
--- OUTSIDE RECORDS SUMMARY | 2023-12-03 05:42 | External Medical Summary | Summary of Care ---
Author Name Unknown Organization [facility] Address [address] [facility] [place] [address] Phone [phone] Care Team Providers Care Commissioning Editor Name Role Phone JosueIjeoma mistry Lela HOLLIDAY Primary Care Provider Reason for Visit * Reason Comments Return Visit Non Stress Test Encounter Details Date Type Department Care Team ([facility] st Contact Info) Description 10/22/2023 11:00 AM EST Office Visit Gynecology/Obstetric s [facility] [address] [place] [address] BackerMar CRNP [address] [place] [address] [facility] Non Stress Tests Arnold [address] [place] [address] Supervision of high-risk , third trimester*; Obesity in , antepartum; Chronic hypertension in ; H/O section; Multigravida of advanced maternal age in third trimester; History of delivery of macrosomal ; Urinary tract infection in mother during second trimester of ; Antepartum anemia complicating ; Maternal vitamin B12 deficiency; High thyroid stimulating hormone (TSH) level; Excessive growth affecting management of in third trimester, single or unspecified fetus Allergies No known active allergiesdocumented as of this encounter (statuses as of 10/22/2023) Medications Medication Sig Dispensed Refills Start Date [...] mcgIndications:Vitamin B 12 deficiency 1000 mcg IM [id number] 05/13/2023 04/13/2024 Active vitamin b-12 (Cyanocobalamin) inj 1,000 mcgIndications:Vitamin B 12 deficiency 1000 mcg IM [id number] 09/19/2023 08/20/2024 Active documented as of this encounter (statuses as of 10/22/2023) Active Problems Problem Noted Date Diagnosed Date [...] level Overview: Ask a Doc sent to [facility] for recommendations, see encounter 09/03. Normal T3/T4 [...] assessment of proteinuria (24-hour urine protein or xzcqpqm-hw-asrymmfrlx ratio) and CBC, serum AST/ALT/creatinine. If patient [...] assessment of proteinuria (24-hour urine protein or fxikjwq-ti-cmnjhnhkgp ratio) and CBC, serum AST/ALT/creatinine. If patient [...] skin incision, unknown uterine incision. Delivered at [facility], [place] report in chart. Low transverse [...] as of this encounter (statuses as of 10/22/2023) Resolved Problems Problem Noted Date Diagnosed Date [...] as of this encounter (statuses as of 10/22/2023) Immunizations Name Administration Dates Next Due COVID-19, mRNA, LNR-S, Bival ent, PF, 3 mcg/0.2 ml ([employer]) 6m to 4 years 07/26/2022 Covid-19 Ad26, [...] on file documented as of this encounter Last Filed Vital Signs Vital Sign Reading Time Taken Comments Blood Pressure - - Pulse - - Temperature - - Respiratory Rate - - Oxygen Saturation - - Inhaled Oxygen Concentration - - Weight 150.6 kg (332 lb) 10/22/2023 10:42 AM EST Height - - Body Mass Index 58.81 10/09/2023 9:08 AM EST documented in this encounter Progress Notes * Mar Rhoades CRNP - 10/22/2023 10:42 AM EST TAD/NST at 33w5d. Had MFM growth scan last week, EFW 98th% and AC >99th %. Doing well on labetalol. No new BOYLE, vision changes. Some LE edema at the end of the day; better w/rest and elevation. Reviewed warning signs of preE. Baby is moving well, no regular ctx or leaking/bleeding. ASSESSMENT assessment with Non-stress Test completed on 10/22/2023 at 33w5d weeks gestation for indicationof chronic hypertension heart baseline: 150 bpm Variability: Moderate Decelerations: absent Accelerations: present Contractions: None NST start time: 1044 NST stop time: 1113 NST strip reviewed, interpreted, and approved by OB provider, EDNA Elizabeth. NST strip stored in clinic storage file documented in this encounter Plan of Treatment Upcoming Encounters Date Type Department Care Team (Late st Contact Info) Description 10/30/2023 1:00 PM EST Office Visit Gynecology/Obstetrics [facility] [address] [place] [address] Mar Rhoades CRNP [address] [place] [address] [place], Non Stress Tests Arnold [address] [place] [address] 11/05/2023 10:15 AM EST Office Visit Gynecology/Obstetrics [facility] [address] [place] [address] Nicole Burns CRNP [address] [place] [address] Kevin, Non Stress Tests Arnold [address] [place] [address] 11/06/2023 9:30 AM EST Imaging Maternal Medicine Imaging, Arnold Kevin [address] [place] [address] 11/12/2023 10:15 AM EST Office Visit Gynecology/Obstetrics [facility] [address] [place] [address] Nicole Burns CRNP [address] [place] [address] Kevin, Non Stress Tests Arnold [address] [place] [address] 11/19/2023 10:15 AM EST Office Visit Gynecology/Obstetrics [facility] [address] [place] [address] Nicole Burns CRNP [address] [place] [address] [facility] Non Stress Tests Arnold [address] [place], [place] [address] 11/26/2023 10:00 AM EST Office Visit Gynecology/Obstetrics [facility] [address] [place] [address] Nicole Burns CRNP [address] [place], [place] [address] [facility] Non Stress Tests Arnold [address] [place] [address] 12/03/2023 10:00 AM EST Office Visit Gynecology/Obstetrics [facility] [address] [place] [address] Nicole Burns CRNP [address] [place] [address] Sheri Kevin Stress Tests Arnold [address] [place] [address] Health Maintenance Due Date Last Done Comments [...] Not on filedocumented as of this encounter Procedures Procedure Name Priority Date/Time Associated Diagnosis Comments URINALYSIS, POINT OF CARE (ENTER/EDIT) Routine 10/22/2023 Supervision of high-risk , third trimester Chronic hypertension in documented in this encounter Results * URINALYSIS, POINT OF CARE (ENTER/EDIT) (10/22/2023) Color, Urine Yellow Yellow or Light Yellow Clarity, Urine Clear Clear Glucose, Urine Negative Negative mg/dL Bilirubin, Urine Negative Negative Ketone, Urine Negative Negative mg/dL Specific [place], Urine 1.025 1.003 - 1.030 Blood, Urine Trace-intact Negative pH, Urine 6.0 5.0 - 7.5 units Protein, Urine Negative Negative mg/dL Urobilinogen, Urine 0.2 0.2 - 1.0 mg/dL Nitrite, Urine Negative Negative Esterase, Urine Negative Negative Urine 10/22/2023 Mar [facility] POINT O F CARE TEST ENTER/EDIT ORDERABLES documented in this encounter Visit Diagnoses Diagnosis Supervision of high-risk , third trimester- Primary Obesity in , antepartum Obesity complicating , childbirth, or the puerperium, antepartum condition or complication Chronic hypertension in Benign essential hypertension complicating , childbirth, and the puerperium, unspecified as to episode of care H/O section Other postprocedural status Multigravida of advanced maternal age in third trimester History of delivery of macrosomal infant Urinary tract infection in mother during second trimester of Antepartum anemia complicating Anemia, antepartum Maternal vitamin B12 deficiency High thyroid stimulating hormone (TSH) level Excessive growth affecting management of in third trimester, single or unspecified fetus documented in this encounter Care Teams Commissioning Editor Relationship Specialty Start Date End Date Ijeoma Kaplan DO [address] [place] [address] PCP - General Family Medicine 07/22/17 documented as of this encounter
--- OUTSIDE RECORDS SUMMARY | 2023-12-03 05:42 | External Medical Summary | Summary of Care ---
Author Name Unknown Organization [facility] Address [address] [place] [address] Phone [phone] Care Team Providers Care Seaport Planning Manager Name Role Phone JosueIjeoma mistry Lela HOLLIDAY Primary Care Provider Reason for Visit * Reason Comments Return Visit Encounter Details Date Type Department Care Team ([facility] st Contact Info) Description 11/26/2023 10:00 AM EST Office Visit Gynecology/Obstetric s [facility] [address] [place] [address] Nicole Burns CRNP [address] [place] [address] [facility] Non Stress Tests Arnold [address] [place] [address] Supervision of high-risk , third trimester*; Obesity in , antepartum; Chronic hypertension in ; H/O section; Antepartum multigravida of advanced maternal age; History of delivery of macrosomal ; Urinary tract infection in mother during second trimester of ; Antepartum anemia complicating ; Maternal vitamin B12 deficiency; High thyroid stimulating hormone (TSH) level; Excessive growth affecting management of in third trimester, single or unspecified fetus Allergies No known active allergiesdocumented as of this encounter (statuses as of 11/26/2023) Medications Medication Sig Dispensed Refills Start Date [...] mcgIndications:Vitamin B 12 deficiency 1000 mcg IM [id number] 05/13/2023 04/13/2024 Active vitamin b-12 (Cyanocobalamin) inj 1,000 mcgIndications:Vitamin B 12 deficiency 1000 mcg IM [id number] 09/19/2023 08/20/2024 Active documented as of this encounter (statuses as of 11/26/2023) Active Problems Problem Noted Date Diagnosed Date [...] level Overview: Ask a Doc sent to [facility] for recommendations, see encounter 09/03. Normal [...] assessment of proteinuria (24-hour urine protein or txndish-ww-bgebjvuusa ratio) and CBC, serum AST/ALT/creatinine. If patient [...] assessment of proteinuria (24-hour urine protein or jfkkjwl-lt-brgwjjoulz ratio) and CBC, serum AST/ALT/creatinine. If patient [...] skin incision, unknown uterine incision. Delivered at [facility], [place] report in chart. Low transverse [...] as of this encounter (statuses as of 11/26/2023) Resolved Problems Problem Noted Date Diagnosed Date [...] as of this encounter (statuses as of 11/26/2023) Immunizations Name Administration Dates Next Due COVID-19, mRNA, LNR-S, Bival ent, PF, 3 mcg/0.2 ml ([employer]) 6m to 4 years 07/26/2022 Covid-19 Ad26, Single Dose ([employer]) 021 PPD 05/13/2023,06/28/2021,09/08/2017 Seasonal Influenza, PF, 6 [...] - Inhaled Oxygen Concentration - - Weight 157.4 kg (347 lb) 11/26/2023 10:08 AM EST Height - - Body Mass Index 61.47 11/19/2023 9:58 AM EST documented in this encounter Progress Notes * Nicole Burns CRNP - 11/26/2023 11:57 AM EST ASSESSMENT assessment with Non-stress Test completed on 11/26/2023 at 38.5weeks gestation for indication of obesity and chronic hypertension heart baseline: 150 bpm Variability: Moderate Decelerations: absent Accelerations: absent. Difficult to keep consistent tracing d/t movement and maternal body habitus Contractions: None NST start time: 1003 NST stop time: 1100 NST strip reviewed, interpreted, and approved by OB provider, EDNA Shanks . NST strip stored in clinic storage file BPP today for nonreactive NST documented in this encounter Plan of Treatment Upcoming Encounters Date Type Department Care Team (Late st Contact Info) Description 12/11/2023 12:00 PM EST Office Visit Gynecology/Obstetrics [facility] [address] [place] [address] Nicole Burns CRNP [address] [place] [address] Health Maintenance Due Date Last Done Comments Hepatitis B (1 of 3 - 3-dose series) 1985 COVID-19 Vaccine (2 - season) 2023 07/26/2022, 03/30/2021 Depression Screening 05/13/2024 [...] Not on filedocumented as of this encounter Results * US BPP W/O NON-STRESS TEST (11/26/2023 1:07 PM EST) Anatomical Region Laterality Modality Abdomen, Body Ultrasound 11/26/2023 1:12 PM EST Impressions 11/26/2023 1:09 PM EST IMPRESSION: 1. BPP score: 8 of 8. 2. SANJAY just above the 95th percentile, with MVP of 8.5 cm. 3. Breech presentation. Narrative 11/26/2023 1:09 PM EST EXAM: US BPP W/O NON-STRESS TEST - 11/26/2023 1:07 pm HISTORY: non reactive nst TECHNIQUE: Sonographic examination performed. COMPARISON: None FINDINGS: GENERAL : [place] Presentation: Breech heart rate: 132 bpm SANJAY: 23.8 cm which is just above the 95th percentile for this stage of . MVP measures 8.5 cm BIOPHYSICAL PROFILE breathing movement: 2 Gross body movement: 2 tone: 2 Qualitative AFV: 2 Total BPP score: 8 of 8. Procedure Note Celso Sánchez MD - 11/26/2023 EXAM: US BPP W/O NON-STRESS TEST - 11/26/2023 1:07 pm HISTORY: non reactive nst TECHNIQUE: Sonographic examination performed. COMPARISON: None FINDINGS: GENERAL : [place] Presentation: Breech heart rate: 132 bpm SANJAY: 23.8 cm which is just above the 95th percentile for this stage ofpregnancy. MVP measures 8.5 cm BIOPHYSICAL PROFILE breathing movement: 2 Gross body movement: 2 tone: 2 Qualitative AFV: 2 Total BPP score: 8 of 8. IMPRESSION IMPRESSION: 1. BPP score: 8 of 8. 2. SANJAY just above the 95th percentile, with MVP of 8.5 cm. 3. Breech presentation. Nicole [facility] ULTRASOUND documented in this encounter Visit Diagnoses Diagnosis Supervision of high-risk , third trimester- Primary Obesity in , antepartum Obesity complicating , childbirth, or the puerperium, antepartum condition or complication Chronic hypertension in Benign essential hypertension complicating , childbirth, and the puerperium, unspecified as to episode of care H/O section Other postprocedural status Antepartum multigravida of advanced maternal age History of delivery of macrosomal infant Urinary tract infection in mother during second trimester of Antepartum anemia complicating Anemia, antepartum Maternal vitamin B12 deficiency High thyroid stimulating hormone (TSH) level Excessive growth affecting management of in third trimester, single or unspecified fetus Supervision of high-risk , third trimester documented in this encounter Care Teams Seaport Planning Manager Relationship Specialty Start Date End Date Ijeoma Kaplan DO [address] [place] [address] PCP - General Family Medicine 07/22/17 documented as of this encounter
--- OUTSIDE RECORDS SUMMARY | 2023-12-03 05:42 | External Medical Summary ---
Author Name Unknown Address Unknown Organization K01:[facility] - [address] [facility] [address] Laboratory Report Ordering Provider Test Date Status VALENCIA METCALF 11/12/2023 13:12:51 Final Observation Date Value Abnormality Reference (Units ) Status Streptococcus agalactiae DNA [Presence] in Specimen by ROSY with probe detection 11/12/2023 13:12:51 Positive Abnormal Negative Final Group B Streptococcus detect ed by culture-enhanced PCR (amplified probe).
The collection of vaginal/rectal swab specimen combinations (FDA approved specimen type) is optimal for the detection of Group B Streptococcus. Single source collection (vaginal only or rectal only) or alternate specimen sources may lead to false negative results. Performing Location [facility] - [address] [place] [address]
--- OUTSIDE RECORDS SUMMARY | 2023-12-03 05:42 | External Medical Summary | Summary of Care ---
Author Name Unknown Organization [facility] Address [address] [facility] [place] [address] Phone [phone] Care Team Providers Care Executive Director Global Brand Marketing Name Role Phone JosueIjeoma mistry Lela HOLLIDAY Primary Care Provider Reason for Visit * Reason Comments Non Stress Test Encounter Details Date Type Department Care Team ([facility] st Contact Info) Description 10/30/2023 1:00 PM EST Office Visit Gynecology/Obstetric s Lillian Kevin [address] [place] [address] BackerMar CRNP [address] [place] [address] [place] Non Stress Tests Arnold [address] [place] [address] Supervision of high-risk , third trimester*; Obesity [...] as of this encounter (statuses as of 10/30/2023) Medications Medication Sig Dispensed Refills Start Date [...] mcgIndications:Vitamin B 12 deficiency 1000 mcg IM [id number] 05/13/2023 04/13/2024 Active vitamin b-12 (Cyanocobalamin) inj 1,000 mcgIndications:Vitamin B 12 deficiency 1000 mcg IM [id number] 09/19/2023 08/20/2024 Active documented as of this encounter (statuses as of 10/30/2023) Active Problems Problem Noted Date Diagnosed Date [...] level Overview: Ask a Doc sent to [facility] for recommendations, see encounter 09/03. Normal T3/T4 [...] assessment of proteinuria (24-hour urine protein or hfbuccl-lp-axpbztesds ratio) and CBC, serum AST/ALT/creatinine. If patient [...] assessment of proteinuria (24-hour urine protein or ngeljcx-pl-qnipnjbtnq ratio) and CBC, serum AST/ALT/creatinine. If patient [...] skin incision, unknown uterine incision. Delivered at [facility], [place] report in chart. Low [...] as of this encounter (statuses as of 10/30/2023) Resolved Problems Problem Noted Date Diagnosed Date [...] as of this encounter (statuses as of 10/30/2023) Immunizations Name Administration Dates Next Due COVID-19, mRNA, LNR-S, Bival ent, PF, 3 mcg/0.2 ml ([employer]) 6m to 4 years 07/26/2022 Covid-19 Ad26, Single Dose ([employer]/J&J) 021 PPD 05/13/2023,06/28/2021,09/08/2017 Seasonal Influenza, PF, 6 [...] Sign Reading Time Taken Comments Blood Pressure 126/82 10/30/2023 12:49 PM EST Pulse - - Temperature - - Respiratory Rate - - Oxygen Saturation - - Inhaled Oxygen Concentration - - Weight 154.7 kg (341 lb) 10/30/2023 12:49 PM EST Height - - Body Mass Index 60.41 10/09/2023 9:08 AM EST documented in this encounter Progress Notes * Mar Rhoades CRNP - 10/30/2023 12:48 PM EST ASSESSMENT assessment with Non-stress Test completed on 10/30/2023 at 34w6d weeks gestation for indication of obesity and chronic hypertension heart baseline: 130 bpm Variability: Moderate Decelerations: absent Accelerations: present Contractions: None NST start time: 1251 NST stop time: 1315 NST strip reviewed, interpreted, and approved by OB provider, EDNA Elizabeth . NST strip stored in clinic storage file documented in this encounter Plan of Treatment Upcoming Encounters Date Type Department Care Team (Late st Contact Info) Description 11/05/2023 10:15 AM EST Office Visit Gynecology/Obstetrics [facility] [address] [place] [address] Nicole Burns CRNP [address] [place] [address] Kevin, Non Stress Tests Arnold [address] [place] [address] 11/06/2023 9:30 AM EST Imaging Maternal Medicine Imaging, Arnold Kevin [address] [place] [address] 11/12/2023 11:15 AM EST Office Visit Gynecology/Obstetrics Lillian Kevin [address] [place] [address] Cholo Terry MD [address] [place] [address] Kevin, Non Stress Tests Arnold [address] [place] [address] 11/19/2023 10:15 AM EST Office Visit Gynecology/Obstetrics Lillian Kevin [address] [place] [address] Nicole Burns CRNP [address] [place] [address] Kevin, Non Stress Tests Arnold [address] [place] [address] 11/26/2023 10:00 AM EST Office Visit Gynecology/Obstetrics Lillian Kevin [address] [place] [address] Nicole Burns CRNP [address] [place] [address] Kevin, Non Stress Tests Arnold [address] [place] [address] 12/11/2023 12:00 PM EST Office Visit Gynecology/Obstetrics Lillian Kevin [address] [place] [address] Nicole Burns CRNP [address] [place] [address] Health Maintenance Due Date Last Done Comments Hepatitis B (1 of 3 - 3-dose series) 1985 COVID-19 Vaccine (2 - 2022- season) 2023 07/26/2022, 03/30/2021 Depression Screening 05/13/2024 [...] Comments URINALYSIS, POINT OF CARE (ENTER/EDIT) Routine 10/30/2023 Supervision of high-risk , third trimester Chronic hypertension in documented in this encounter Results * URINALYSIS, POINT OF CARE (ENTER/EDIT) (10/30/2023) Color, Urine Dark Yellow Yellow or Light Yellow Clarity, Urine Clear Clear Glucose, Urine Negative Negative mg/dL Bilirubin, Urine Negative Negative Ketone, Urine 15 Negative mg/dL Specific [place], Urine 1.030 1.003 - 1.030 Blood, Urine Trace-lysed Negative pH, Urine 6.5 5.0 - 7.5 units Protein, Urine Negative Negative mg/dL Urobilinogen, Urine 0.2 0.2 - 1.0 mg/dL Nitrite, Urine Negative Negative Esterase, Urine Negative Negative Urine 10/30/2023 Mar [facility] [...] third trimester History of delivery of macrosomal Urinary tract infection in mother during second trimester of Antepartum anemia complicating Anemia, antepartum Maternal vitamin B12 deficiency High thyroid stimulating hormone (TSH) level Excessive growth affecting management of in third trimester, single or unspecified fetus documented in this encounter Care Teams Executive Director Global Brand Marketing Relationship Specialty Start Date End Date Ijeoma Kaplan DO [address] [place] [address] PCP - General Family Medicine 07/22/17 documented as of this encounter
--- OUTSIDE RECORDS SUMMARY | 2023-12-03 05:42 | External Medical Summary | Summary of Care ---
Author Name Unknown Organization [facility] Address [address] [place] [facility] [place] [place] [address] Phone [phone] Care Team Providers Care Social Work Program Coordinator Name Role Phone JosueIjeoma mistry Lela HOLILDAY Primary Care Provider Reason for Visit * Reason Comments Return Visit Encounter Details Date Type Department Care Team ([facility] st Contact Info) Description 11/19/2023 10:15 AM EST Office Visit Gynecology/Obstetric s Lillian Kevin [address] [place] [address] Nicole Burns CRNP [address] [place] [address] [place] Non Stress Tests Arnold [address] [place] [address] Supervision of high-risk , third trimester*; Obesity [...] as of this encounter (statuses as of 11/19/2023) Medications Medication Sig Dispensed Refills Start Date [...] mcgIndications:Vitamin B 12 deficiency 1000 mcg IM [id number] 05/13/2023 04/13/2024 Active vitamin b-12 (Cyanocobalamin) inj 1,000 mcgIndications:Vitamin B 12 deficiency 1000 mcg IM [id number] 09/19/2023 08/20/2024 Active documented as of this encounter (statuses as of 11/19/2023) Active Problems Problem Noted Date Diagnosed Date [...] level Overview: Ask a Doc sent to [facility] for recommendations, see encounter 09/03. [...] assessment of proteinuria (24-hour urine protein or cqfcgvu-ty-plhmtbzfhd ratio) and CBC, serum AST/ALT/creatinine. If patient [...] assessment of proteinuria (24-hour urine protein or xutkiqq-ql-dhzlnafyjy ratio) and CBC, serum AST/ALT/creatinine. If patient [...] skin incision, unknown uterine incision. Delivered at [facility], [place] report in chart. Low transverse [...] as of this encounter (statuses as of 11/19/2023) Resolved Problems Problem Noted Date Diagnosed Date [...] as of this encounter (statuses as of 11/19/2023) Immunizations Name Administration Dates Next Due COVID-19, mRNA, LNR-S, Bival ent, PF, 3 mcg/0.2 ml ([employer]) 6m to 4 years 07/26/2022 Covid-19 Ad26, Single Dose ([employer]/J&J) 021 PPD 05/13/2023,06/28/2021,09/08/2017 Seasonal Influenza, PF, 6 [...] Sign Reading Time Taken Comments Blood Pressure 136/84 11/19/2023 9:58 AM EST Pulse - - Temperature - - Respiratory Rate - - Oxygen Saturation - - Inhaled Oxygen Concentration - - Weight 157.4 kg (347 lb) 11/19/2023 9:58 AM EST Height 160 cm (5' 3") 11/19/2023 9:58 AM EST Body Mass Index 61.47 11/19/2023 9:58 AM EST documented in this encounter Progress Notes * Nicole Burns CRNP - 11/19/2023 10:12 AM EST 37w5d Noticing slightly more swelling. Denies headaches, visual changes. Baby is active. No bleeding or LOF. C/s scheduled. ASSESSMENT assessment with Non-stress Test completed on 11/19/2023 at 37.5weeks gestation for indication of obesity and chronic hypertension heart baseline: 140 bpm Variability: Moderate Decelerations: absent Accelerations: present Contractions: None NST start time: 1101 NST stop time: 1126 NST strip reviewed, interpreted, and approved by OB provider, EDNA Shanks . NST strip stored in clinic storage file * Juliet Richter LPN - 11/19/2023 10:04 AM EST 37w5d documented in this encounter Plan of Treatment Upcoming Encounters Date Type Department Care Team (Late st Contact Info) Description 11/26/2023 10:00 AM EST Office Visit Gynecology/Obstetrics Lillian Kevin [address] [place] [address] Nicole Burns CRNP [address] [place] [address] Sheri Kevin Stress Tests Arnold [address] [place] [address] 12/11/2023 12:00 PM EST Office Visit Gynecology/Obstetrics Lillian Kevin [address] [place] [address] Nicole Burns CRNP [address] [place] [address] Health Maintenance Due Date Last Done Comments [...] as of this encounter Visit Diagnoses Diagnosis Supervision of [...] fetus documented in this encounter Care Teams Social Work Program Coordinator Relationship Specialty Start Date End Date Ijeoma Kaplan DO [address] [place] [address] PCP - General Family Medicine 07/22/17 documented as of this encounter
--- OUTSIDE RECORDS SUMMARY | 2023-12-03 05:42 | External Medical Summary | Summary of Care ---
Author Name Unknown Organization [facility] Address [address] [facility] [place] [address] Phone [phone] Care Team Providers Care Inclusion Special Education Teacher Name Role Phone JosueIjeoma mistry Lela HOLLIDAY Primary Care Provider Reason for Visit * Reason Comments Return Visit Encounter Details Date Type Department Care Team ([facility] st Contact Info) Description 11/05/2023 10:15 AM EST Office Visit Gynecology/Obstetric s Lillian Kevin [address] [place] [address] Nicole Burns CRNP [address] [place] [address] [place] Non Stress Tests Arnold [address] [place] [address] Supervision of high-risk , third trimester*; Obesity [...] as of this encounter (statuses as of 11/05/2023) Medications Medication Sig Dispensed Refills Start Date [...] mcgIndications:Vitamin B 12 deficiency 1000 mcg IM [id number] 05/13/2023 04/13/2024 Active vitamin b-12 (Cyanocobalamin) inj 1,000 mcgIndications:Vitamin B 12 deficiency 1000 mcg IM [id number] 09/19/2023 08/20/2024 Active documented as of this encounter (statuses as of 11/05/2023) Active Problems Problem Noted Date Diagnosed Date [...] level Overview: Ask a Doc sent to [facility] for recommendations, see encounter 09/03. [...] assessment of proteinuria (24-hour urine protein or tmxiezz-em-ltgepfukrn ratio) and CBC, serum AST/ALT/creatinine. If patient [...] assessment of proteinuria (24-hour urine protein or dmnmnft-ui-qhqombnalz ratio) and CBC, serum AST/ALT/creatinine. If patient [...] skin incision, unknown uterine incision. Delivered at [facility], [place] report in chart. Low transverse [...] as of this encounter (statuses as of 11/05/2023) Resolved Problems Problem Noted Date Diagnosed Date [...] as of this encounter (statuses as of 11/05/2023) Immunizations Name Administration Dates Next Due COVID-19, mRNA, LNR-S, Bival ent, PF, 3 mcg/0.2 ml ([employer]) 6m to 4 years 07/26/2022 Covid-19 Ad26, Single Dose ([employer]/J&J) 021 PPD 05/13/2023,06/28/2021,09/08/2017 Seasonal Influenza, PF, 6 [...] Reading Time Taken Comments Blood Pressure 136/84 11/05/2023 9:59 AM EST Pulse - - Temperature - - Respiratory Rate - - Oxygen Saturation - - Inhaled Oxygen Concentration - - Weight 155.6 kg (343 lb) 11/05/2023 9:59 AM EST Height 160 cm (5' 3") 11/05/2023 9:59 AM EST Body Mass Index 60.76 11/05/2023 9:59 AM EST documented in this encounter Progress Notes * Nicole Burns CRNP - 11/05/2023 10:15 AM EST ASSESSMENT assessment with Non-stress Test completed on 11/05/2023 at 35.5weeks gestation for indication of obesity and chronic hypertension heart baseline: 140 bpm Variability: Moderate Decelerations: absent Accelerations: present x1 Contractions: None NST start time: 1001 NST stop time: 1055 NST strip reviewed, interpreted, and approved by OB provider, EDNA Shanks . NST strip stored in clinic storage file BPP done for nonreactive NST. BPP 05/27. Baby is transverse. EDNA Shanks documented in this encounter Plan of Treatment Upcoming Encounters Date Type Department Care Team (Late st Contact Info) Description 11/06/2023 9:30 AM EST Imaging Maternal Medicine Imaging, Arnold Kevin [address] [place] [address] 11/06/2023 9:30 AM EST Office Visit [facility] Obstetrics Maternal Medicine, Arnold Kevin [address] [place] [address] Rosa Maria Mortensen, DO [address] [place] [facility] [place] [address] 11/12/2023 11:15 AM EST Office Visit Gynecology/Obstetrics Lillian Kevin [address] [place] [address] Cholo Terry MD [address] [place] [address] [place] Non Stress Tests Arnold [address] [place] [address] 11/19/2023 10:15 AM EST Office Visit Gynecology/Obstetrics Lillian Kevin [address] [place] [address] Nicole Burns CRNP [address] [place] [address] [place] Non Stress Tests Arnold [address] [place] [address] 11/26/2023 10:00 AM EST Office Visit Gynecology/Obstetrics Lillian Kevin [address] [place] [address] Nicole Burns CRNP [address] [place] [address] [place], Non Stress Tests Arnold [address] [place] [address] 12/11/2023 12:00 PM EST Office Visit Gynecology/Obstetrics Lillian Kevin [address] [place] [address] Nicole Burns CRNP [address] [place] [address] Health Maintenance Due Date Last Done Comments [...] Results * US BPP W/O NON-STRESS TEST (11/05/2023 11:19 AM EST) Anatomical Region Laterality Modality Abdomen, Body Ultrasound 11/05/2023 11:2 9 AM EST Impressions 11/05/2023 11:26 AM EST IMPRESSION: 1. BPP score: 8 of 8. 2. Normal SANJAY. 3. Transverse, head maternal right presentation. Narrative 11/05/2023 11:26 AM EST EXAM: US BPP W/O NON-STRESS TEST - 11/05/2023 11:19 am HISTORY: Non reactive nst TECHNIQUE: Sonographic examination performed. COMPARISON: 10/16/2023 FINDINGS: GENERAL : [place] Presentation: Transverse, head maternal right heart rate: 147 bpm Amniotic Fluid: MVP 7.8 cm SANJAY: 20.0 cm which is between the 50th and 95th percentiles for this stage of . BIOPHYSICAL PROFILE breathing movement: 2 Gross body movement: 2 tone: 2 Qualitative AFV: 2 Total BPP score: 8 of 8. Procedure Note Tim Seaman MD - 11/05/2023 EXAM: US BPP W/O NON-STRESS TEST - 11/05/2023 11:19 am HISTORY: Non reactive nst TECHNIQUE: Sonographic examination performed. COMPARISON: 10/16/2023 FINDINGS: GENERAL : [place] Presentation: Transverse, head maternal right heart rate: 147 bpm Amniotic Fluid: MVP 7.8 cm SANJAY: 20.0 cm which is between the 50th and 95th percentiles for this stageof . BIOPHYSICAL PROFILE breathing movement: 2 Gross body movement: 2 tone: 2 Qualitative AFV: 2 Total BPP score: 8 of 8. IMPRESSION IMPRESSION: 1. BPP score: 8 of 8. 2. Normal SANJAY. 3. Transverse, head maternal right presentation. Nicole [facility] ULTRASOUND documented in [...] maternal age History of delivery of macrosomal Urinary tract infection in mother during second trimester of Antepartum anemia complicating Anemia, antepartum Maternal vitamin B12 deficiency High thyroid stimulating hormone (TSH) level Excessive growth affecting management of in third trimester, single or unspecified fetus History of delivery of macrosomal documented in this encounter Care Teams Inclusion Special Education Teacher Relationship Specialty Start Date End Date Ijeoma Kaplan DO [address] [place] [address] PCP - General Family Medicine 07/22/17 documented as of this encounter
--- OUTSIDE RECORDS SUMMARY | 2023-12-03 05:42 | External Medical Summary | Summary of Care ---
Author Name Unknown Organization [facility] Address [address] [place] [address] Phone [phone] Care Team Providers Care Admeasurer Name Role Phone JosueIjeoma mistry Lela HOLLIDAY Primary Care Provider Reason for Visit * Reason Comments Non Stress Test Pre-Op Testing Encounter Details Date Type Department Care Team ([facility] st Contact Info) Description 11/12/2023 11:15 AM EST Office Visit Gynecology/Obstetric s Lillian Kevin [address] [place] [address] Cholo Terry MD [address] [place] [address] [place], Non Stress Tests Arnold [address] [place] [address] Supervision of high-risk , third trimester*; Obesity [...] as of this encounter (statuses as of 11/12/2023) Medications Medication Sig Dispensed Refills Start Date [...] mcgIndications:Vitamin B 12 deficiency 1000 mcg IM [id number] 05/13/2023 04/13/2024 Active vitamin b-12 (Cyanocobalamin) inj 1,000 mcgIndications:Vitamin B 12 deficiency 1000 mcg IM [id number] 09/19/2023 08/20/2024 Active documented as of this encounter (statuses as of 11/12/2023) Active Problems Problem Noted Date Diagnosed Date Excessive growth affec ting management of in third trimester 10/16/2023 Last Assessment & Plan: LGA noted today with EFW at 99%ile. Dieudonne with h/o macrosomia and planning repeat c/s. Of note, 1 abnormal value on 3'GTT. Consider repeat 3'GTT vs FSBS screening to r/o GDM as cause for macrosomia. Antepartum anemia complicating 11/15/2 023 Overview: Hgb 10.7 at 26 wks, rx for iron Maternal vitamin B12 deficiency 09/03/2023 Overview: Start supplement 26w5d High thyroid stimulating hormone (TSH) level Overview: Ask a Doc sent to [facility] for recommendations, see encounter 09/03. Normal [...] assessment of proteinuria (24-hour urine protein or xmuizjg-sk-pghmavhutf ratio) and CBC, serum AST/ALT/creatinine. If patient [...] assessment of proteinuria (24-hour urine protein or oidswbu-cv-sqglcvcnlc ratio) and CBC, serum AST/ALT/creatinine. If patient [...] skin incision, unknown uterine incision. Delivered at [facility], OR report in chart. Low transverse [...] as of this encounter (statuses as of 11/12/2023) Resolved Problems Problem Noted Date Diagnosed Date [...] as of this encounter (statuses as of 11/12/2023) Immunizations Name Administration Dates Next Due COVID-19, mRNA, LNR-S, Bival ent, PF, 3 mcg/0.2 ml ([employer]) 6m to 4 years 07/26/2022 Covid-19 Ad26, [...] Sign Reading Time Taken Comments Blood Pressure 128/86 11/12/2023 11:11 AM EST Pulse - - Temperature - - Respiratory Rate - - Oxygen Saturation - - Inhaled Oxygen Concentration - - Weight 156 kg (344 lb) 11/12/2023 11:11 AM EST Height 160 cm (5' 3") 11/12/2023 11:11 AM EST Body Mass Index 60.94 11/12/2023 11:11 AM EST documented in this encounter Progress Notes * Cholo Terry MD - 11/12/2023 12:14 PM EST Pt doing well NST ; CAT1 GBS culx done H&P done and consent obtained documented in this encounter H&P Notes * Cholo Terry MD - 11/12/2023 12:11 PM EST [facility] [address] [address] Appt line [phone] Dieudonne Beth is a 38 year old year old year old at 36w5d Patient is . Estimated Date of Delivery: 12/05/23 Patient is here for Prior c/sec. Wishes to have repeat c/sec and bilateral tubal removal Breech presentation Obesity Body mass index is 60.94 kg/m. Care: OB History Para Term AB Living 2 1 1 0 0 1 SAB IAB Ectopic Multiple Live Births 0 0 0 0 1 # Outcome Date GA Lbr Slim/2nd Weight Sex Delivery Anes PTL Lv 2 Current 1 Term 12/23/08 41w0d 4.252 kg (9 lb 6 oz) M CS-LTranv IGNACIO Comments: FOB#1 Complications: Intolerance Obstetric Comments 2022 #2 Oscar, age 37, chronic hypertension and type 2 diabetes, first child together, no other children 2009-Op report confirms LTCS, scanned in chart. Date Labor Sex Delivery Anesth Del Comments GA Length Weight Type Site Induction Heat Treater History: Menstrual Index: / / days. Denies h/o STDs and abnormal Paps. Her past medical/surgical histories and current medications are recorded in the electronic record. Past Surgical History: Procedure Laterality Date DELIVERY 2008 delayed healing LAPAROSCOPY; CHOLECYSTECTOMY 2009 ORAL SURGERY PROCEDURE Family History Problem Relation Age of Onset Other (Psychiatric problems - bipolar, schizophrenia) Mother Heart Disorder Father [place] Hypertension Father Cancer Father No breast/colon/ovary No Known Problems Sister No Known Problems Brother No Known Problems Son History Social History Socioeconomic History Marital status: Single Spouse name: Not on file Number of children: 1 Years of education: Not on file Highest education level: Not on file Occupational History Occupation: ANESTHESIOLOGIST/PHYSICIAN Employer: [employer] Tobacco Use Smoking status: Former Packs/day: .5 Types: Cigarettes Quit date: 03/20/2023 Years since quittin.6 Smokeless tobacco: Never Tobacco comments: 10 per day-started age 17 Substance and Sexual Activity Alcohol use: Not Currently Comment: rare - several times per year Drug use: No Sexual activity: Yes Partners: Male Other Topics Concern Not on file Social History Narrative Not on file Social Determinants of Health Financial Resource Strain: Not on file Food Insecurity: No Food Insecurity (05/07/2023) Hunger Vital Sign Worried About Running Out of Food in the Last Year: Never true Ran Out of Food in the Last Year: Never true Transportation Needs: Not on file Physical Activity: Not on file Stress: Not on file Social Connections: Not on file Intimate Partner Violence: Not on file Housing Stability: Not on file @[employer]@ Physical Exam: BP 128/86 | Ht 1.6 m (5' 3") | Wt (!) 156 kg (344 lb) | LMP 02/28/2023 | BMI 60.94 kg/m | BSA 2.63 m CV: S1, S2. Regular rate and Rhythm Lungs: Clear to auscultation bilaterally. Abdomen: Soft with a gravid uterus and no palpable contractions. Fundal Height: 38cms heart rate: 140/ Extremities: Soft non tender calves bilaterally. A/P: 38 year old year old 1.Prior c/sec. Wishes to have repeat c/sec and bilateral tubal removal 2.Breech presentation 3.Obesity Body mass index is 60.94 kg/m. We have discussed the risk alternatives and complications of surgery including more surgery to correct complication,risk of anesthesia,infection,damage to internal organs and . We have also discussed the possibility that pt's present situation may not change. Pt is aware and wishes to proceed to surgery. Consent is signed Cholo Terry MD 11/12/2023 12:11 PM documented in this encounter Nursing Notes * Lilibeth Sandoval LPN - 11/12/2023 12:04 PM EST 36w5d NST, TAD, pre-op 12/03/23. GBS today. documented in this encounter Plan of Treatment Upcoming Encounters Date Type Department Care Team (Late st Contact Info) Description 11/19/2023 10:15 AM EST Office Visit Gynecology/Obstetrics Lillian Kevin [address] [place] [address] Nicole Burns CRNP [address] [place] [address] [place], Non Stress Tests Arnold [address] [place] [address] 11/26/2023 10:00 AM EST Office Visit Gynecology/Obstetrics Lillian Kevin [address] [place], [place] [address] Nicole Burns CRNP [address] [place] [address] [place] Non Stress Tests Arnold [address] [place] [address] 12/11/2023 12:00 PM EST Office Visit Gynecology/Obstetrics Lillian Kevin [address] [place], [place] [address] Nicole Burns CRNP [address] [place] [address] Pending Results Name Type Priority Associated Diagnoses Date /Time GROUP B STREP CULTURE/PCR Lab Routine Supervision of high-risk , third trimester 11/12/2023 1:12 PM EST Scheduled Orders Name Type Priority Associated Diagnoses Orde r Schedule CBC WITH WBC DIFFERENTIAL Lab Routine Supervision of high-risk , third trimester Ordered: 11/12/2023 Health Maintenance Due Date Last Done Comments Hepatitis B (1 of 3 - 3-dose series) 1985 COVID-19 Vaccine ( - 2022- season) 2023 07/26/2022, 03/30/2021 Depression [...] fetus documented in this encounter Care Teams Admeasurer Relationship Specialty Start Date End Date Ijeoma Kaplan DO [address] [place] [address] PCP - General Family Medicine 07/22/17 documented as of this encounter
--- OUTSIDE RECORDS SUMMARY | 2023-12-03 05:42 | External Medical Summary | Summary of Care ---
Author Name Unknown Organization [facility] Address [address] [facility] [address] Phone [phone] Care Team Providers Care Guide Plant Name Role Phone JosueIjeoma mistry Lela HOLLIDAY Primary Care Provider Encounter Details Date Type Department Care Team (Late st Contact Info) Description 10/16/2023 2:00 PM EST Office Visit Gynecology/Obstetric s [facility] [place] [address] [place] [address] Mar Rhoades CRNP [address] [place] [address] [place], Non Stress Tests Arnold [address] [place] [address] Patient left without being seen* Allergies No known active allergiesdocumented as of [...] mcgIndications:Vitamin B 12 deficiency 1000 mcg IM [id number] 05/13/2023 04/13/2024 Active vitamin b-12 (Cyanocobalamin) inj 1,000 mcgIndications:Vitamin B 12 deficiency 1000 mcg IM [id number] 09/19/2023 08/20/2024 Active documented as of this [...] level Overview: Ask a Doc sent to [facility] for recommendations, see encounter 09/03. Normal [...] assessment of proteinuria (24-hour urine protein or xidxruq-fq-jhwjijfxnn ratio) and CBC, serum AST/ALT/creatinine. If patient [...] assessment of proteinuria (24-hour urine protein or yuxrohv-oo-wofogsjygc ratio) and CBC, serum AST/ALT/creatinine. If patient [...] skin incision, unknown uterine incision. Delivered at [facility], OR report in chart. Low [...] LNR-S, Bival ent, PF, 3 mcg/0.2 ml ([employer]) 6m to 4 years 07/26/2022 Covid-19 Ad26, Single Dose ([employer]) 021 PPD 05/13/2023,06/28/2021,09/08/2017 Seasonal Influenza, PF, 6 [...] as of this encounter Progress Notes * Faiza Michel LPN - 10/16/2023 8:57 AM EST The patient left without being seen by the provider. 10/16/2023, 8:57 AM, Faiza Michel LPN documented in this encounter Nursing Notes * Faiza Michel LPN - 10/16/2023 8:55 AM EST Pt scheduled today for NST and MFM visit. MFM completed BPP which was 88. Per Mar Rhoades pt does not need NST today. documented in this encounter Plan of Treatment Upcoming Encounters Date Type Department Care Team (Late st Contact Info) Description 10/22/2023 11:15 AM EST Office Visit Gynecology/Obstetrics Lillian Kevin [address] [place] [address] Nicole Burns CRNP [address] [place] [address] [place], Non Stress Tests Arnold [address] [place] [address] 10/30/2023 1:00 PM EST Office Visit Gynecology/Obstetrics [facility] [place] [address] [place] [address] TreyerMar CRNP [address] [place] [address] Kevin, Non Stress Tests Arnold [address] [place] [address] 11/05/2023 10:15 AM EST Office Visit Gynecology/Obstetrics [facility] [address] [place] [address] Nicole Burns CRNP [address] [place] [address] Kevin, Non Stress Tests Arnold [address] [place] [address] 11/06/2023 9:30 AM EST Imaging Maternal Medicine Imaging, Arnold Kevin [address] [place] [address] 11/12/2023 10:15 AM EST Office Visit Gynecology/Obstetrics [facility] [address] [place] [address] Nicole Burns CRNP [address] [place] [address] Kevin, Non Stress Tests Arnold [address] [place] [address] 11/19/2023 10:15 AM EST Office Visit Gynecology/Obstetrics [facility] [address] [place] [address] Nicole Burns CRNP [address] [place] [address] Kevin, Non Stress Tests Arnold [address] [place] [address] 11/26/2023 10:00 AM EST Office Visit Gynecology/Obstetrics [facility] [address] [place] [address] Nicole Burns CRNP [address] [place] [address] [place], Non Stress Tests Arnold [address] [place] [address] 12/03/2023 10:00 AM EST Office Visit Gynecology/Obstetrics Lillian Kevin [address] [place] [address] Nicole Burns CRNP [address] [place] [address] [place] Non Stress Tests Arnold [address] [place] [address] Health Maintenance Due Date Last Done Comments Hepatitis B (1 of 3 - 3-dose series) 1986 COVID-19 Vaccine (2022- season) 2023 07/26/2022, 03/30/2021 Depression Screening 05/13/2024 [...] as of this encounter Visit Diagnoses Diagnosis Patient left without being seen- Primary Surgical or other procedure not carried out because of patient's decision documented in this encounter Care Teams Guide Plant Relationship Specialty Start Date End Date Ijeoma Kaplan DO [address] [place] [address] PCP - General Family Medicine 07/22/17 documented as of this encounter
--- OUTSIDE RECORDS SUMMARY | 2023-12-03 05:43 | External Medical Summary ---
Author Name Unknown Address Unknown Organization K01:[facility] - [address] [facility] [place] [address] Laboratory Report Ordering Provider Test Date Status JONAH APONTE 09/30/2023 12:24:06 Final Observation Date Value Abnormality Reference (Units ) Status WBC, Total 09/30/2023 12:24:06 15.16 Above high normal 4 .00-10.80 (K/uL) Final RBC 09/30/2023 12:24:06 3.71 3.85-5.15 (M/uL) Final Hemoglobin 09/30/2023 12:24:06 11.2 Below low normal 12 .0-15.3 (g/dL) Final Anemia reflex testing trigge rs on a HGB < 12.0 for Females and HGB < 13.0 for Males in accordance with the WHO Anemia Guidelines
Anemia reflex testing triggers on a HGB < 12.0 for Females and HGB < 13.0 for Males in accordance with the WHO Anemia Guidelines HCT 09/30/2023 12:24:06 34.1 Below low normal 36. 0-45.2 (%) Final MCV 09/30/2023 12:24:06 91.9 81.5-97.5 (fL) Final MCH 09/30/2023 12:24:06 30.2 27.0-34.0 (pg) Final MCHC 09/30/2023 12:24:06 32.8 32.0-36.0 (g/dL) Final RDW 09/30/2023 12:24:06 15.2 11.5-15.5 (%) Final Platelets 09/30/2023 12:24:06 328 140-400 (K /uL) Final MPV 09/30/2023 12:24:06 9.8 6.6-11.1 ( fL) Final Nucleated erythrocytes/100 leukocytes [Ratio] in Blood by Automated count 09/30/2023 12:24:06 0 <=0 (/100 WBCs) Final Performing Location [facility] - [address] [facility] [address]
--- OUTSIDE RECORDS SUMMARY | 2023-12-03 05:43 | External Medical Summary ---
Author Name Unknown Address Unknown Organization : Laboratory Report Ordering Provider Test Date Status JONAH APONTE 09/30/2023 12:14:00 Final Observation Date Value Abnormality Reference (Units ) Status Color of Urine by Auto 09/30/2023 12:14:00 Dark Yellow Abnormal Light Yellow, Yellow Final Clarity, Urine 09/30/2023 12:14:00 Clear Clear Final Glucose [Mass/volume] in Urine by Automated test strip 09/30/2023 12:14:00 Negative Negative (mg/dL) Final Bilirubin.total [Presence] in Urine by Automated test strip 09/30/2023 12:14:00 Negative Negative Final Ketones [Mass/volume] in Urine by Automated test strip 09/30/2023 12:14:00 Negative Negative (mg/dL) Final Specific gravity, Urine 09/30/2023 12:14:00 1.025 1.003-1.030 Final Hemoglobin [Presence] in Urine by Automated test strip 09/30/2023 12:14:00 Trace-intact Abnormal Negative Final pH, Urine 09/30/2023 12:14:00 6.0 5.0, 5.5, 6.0, 6.5, 7.0, 7.5 (units) Final Protein [Mass/volume] in Urine by Automated test strip 09/30/2023 12:14:00 Negative Negative (mg/dL) Final Urobilinogen, Urine 09/30/2023 12:14:00 0.2 0.2, 1.0 (mg/dL) Final Nitrite [Presence] in Urine by Automated test strip 09/30/2023 12:14:00 Negative Negative Final Leukocyte esterase [Presence] in Urine by Automated test strip 09/30/2023 12:14:00 Negative Negative Final Performing Location
--- OUTSIDE RECORDS SUMMARY | 2023-12-03 05:43 | External Medical Summary | Summary of Care ---
Author Name Unknown Organization [facility] Address [address] [place] [address] Phone [phone] Care Team Providers Care Wet Pour Mixer Name Role Phone Ijeoma Kaplan DO Primary Care Provider Reason for Visit * Reason Onset Date Comments Appointment 09/30/2023 Encounter Details Date Type Department Care Team ([facility] st Contact Info) Description 09/30/2023 Telephone [facility] [address] [place] [address] Ijeoma Kaplan DO [address] [place] [address] Appointment Allergies No known active allergiesdocumented as of this encounter (statuses as of 09/30/2023) Medications Medication Sig Dispensed Refills Start Date [...] mcgIndications:Vitamin B 12 deficiency 1000 mcg IM [id number] 05/13/2023 04/13/2024 Active vitamin b-12 (Cyanocobalamin) inj 1,000 mcgIndications:Vitamin B 12 deficiency 1000 mcg IM [id number] 09/19/2023 08/20/2024 Active documented as of this encounter (statuses as of 09/30/2023) Active Problems Problem Noted Date Diagnosed Date Antepartum anemia complicating 023 Overview: Hgb 10.7 at 26 wks, rx for iron Maternal vitamin B12 deficiency 09/03/2023 Overview: Start supplement 26w5d High thyroid stimulating hormone (TSH) level Overview: Ask a Doc sent to [facility] for recommendations, see encounter 09/03. Normal T3/T4 Urinary tract infection in m other during second trimester of 07/08/2023 Overview: +E coli, Keflex sent 18w 4d Neg DONNA at 22 wks History of delivery of macrosomal 023 Overview: 1st baby 9lb 6oz B12 deficiency 05/08/2023 Supervision of high-risk , unspecified trimester 05/07/2023 Overview: [facility] referral Obesity in , antepartum 05/07/2023 Overview: Pregravid [...] assessment of proteinuria (24-hour urine protein or ajfzzui-xv-clugbmmllp ratio) and CBC, serum AST/ALT/creatinine. If patient [...] assessment of proteinuria (24-hour urine protein or qhqeryv-bi-vsbumttxbk ratio) and CBC, serum AST/ALT/creatinine. If patient [...] age) multigravida 35+ Overview: Age 38 at [facility] Opted out of genetic screening Last Assessment [...] as of this encounter (statuses as of 09/30/2023) Resolved Problems Problem Noted Date Diagnosed Date [...] as of this encounter (statuses as of 09/30/2023) Immunizations Name Administration Dates Next Due COVID-19, mRNA, LNR-S, Bival ent, PF, 3 mcg/0.2 ml ([employer]) 6m to 4 years 07/26/2022 Covid-19 Ad26, [...] encounter Miscellaneous Notes * Telephone Encounter - Janet Desai OSA - 09/30/2023 2:39 PM EST Pt rescheduled for 10/09 for nst at [address] Terry at 945. Pt aware. * Telephone Encounter - Nisha Barlow RN - 09/30/2023 1:54 PM EST Will have Janet review. * Telephone Encounter - Shonna Amaro OSA - 09/30/2023 12:20 PM EST Pt needed f/y anabelle at [facility] found an apt for 10-10 at 830 but I also needed her scheduled for anst please assist pt says she will see her apt on my chart thanks documented in this encounter Plan of Treatment Upcoming Encounters Date Type Department Care Team (Late st Contact Info) Description 10/09/2023 9:15 AM EST Office Visit Gynecology/Obstetrics [facility] [address] [place] [address] Cholo Terry MD [address] [place] [address] Sheri Kevin Stress Tests Arnold [address] [place] [address] 10/16/2023 8:00 AM EST Imaging [facility] [address] [place] [address] 11/06/2023 9:30 AM EST Imaging Maternal Medicine Imaging, Arnold Kevin [address] [place] [address] Health Maintenance Due Date Last Done Comments [...] filedocumented as of this encounter Care Teams Wet Pour Mixer Relationship Specialty Start Date End Date Ijeoma Kaplan DO [address] [place] [address] PCP - General Family Medicine 07/22/17 documented as of this encounter
--- OUTSIDE RECORDS SUMMARY | 2023-12-03 05:43 | External Medical Summary ---
Author Name Unknown Address Unknown Organization K01:[facility] - [address] [place] [id number] Laboratory Report Ordering Provider Test Date Status JONAH APONTE 09/30/2023 12:15:02 Final Observation Date Value Abnormality Reference (Units) Status Bacteria identified in Specimen by Culture 09/30/2023 12:15:02 No significant growth Final Test: Culture, Urine, Quanti tative
Specimen Source: Urine, Clean Catch
Specimen Type: Urine
Specimen Date: 09/30/2023 12:15 PM
Result Date: 10/01/2023 4:37 PM
Result Status: Final result
Resulting Lab: [facility]
[address]
[place] [id number]

CULTURE

No significant growth

null Performing Location [facility] - [address] [facility] [address]
--- OUTSIDE RECORDS SUMMARY | 2023-12-03 05:43 | External Medical Summary | Summary of Care ---
Author Name Unknown Organization [facility] Address [address] [place] [address] Phone [phone] Care Team Providers Care Ramp Boss Name Role Phone JosueIjeoma mistry Lela HOLLIDAY Primary Care Provider [phone] Reason for Visit * Reason Onset Date Comments Advice 10/02/2023 Encounter Details Date Type Department Care Team ([facility] st Contact Info) Description 10/02/2023 Telephone Gynecology/Obstetics [place] [address] [place] [address] Nisha Capps PA-C [address] [place] [address] Advice Allergies No known active allergiesdocumented as of this encounter (statuses as of 10/03/2023) Medications Medication Sig Dispensed Refills Start Date [...] mcgIndications:Vitamin B 12 deficiency 1000 mcg IM [id number] 05/13/2023 04/13/2024 Active vitamin b-12 (Cyanocobalamin) inj 1,000 mcgIndications:Vitamin B 12 deficiency 1000 mcg IM [id number] 09/19/2023 08/20/2024 Active documented as of this encounter (statuses as of 10/03/2023) Active Problems Problem Noted Date Diagnosed Date Antepartum anemia complicating 023 Overview: Hgb 10.7 at 26 wks, rx for iron Maternal vitamin B12 deficiency 09/03/2023 Overview: Start supplement 26w5d High thyroid stimulating hormone (TSH) level Overview: Ask a Doc sent to [facility] for recommendations, see encounter 09/03. Normal T3/T4 Urinary tract infection in m other during second trimester of 07/08/2023 Overview: +E coli, Keflex sent 18w 4d Neg DONNA at 22 wks History of delivery of macrosomal infant 023 Overview: 1st baby 9lb 6oz B12 deficiency 05/08/2023 Supervision of high-risk , unspecified trimester 05/07/2023 Overview: [facility] referral Obesity in , antepartum 05/07/2023 Overview: [...] assessment of proteinuria (24-hour urine protein or rhnvbav-gd-kpznhrhpun ratio) and CBC, serum AST/ALT/creatinine. If patient [...] assessment of proteinuria (24-hour urine protein or xgzycla-sf-sebjomyiik ratio) and CBC, serum AST/ALT/creatinine. If patient [...] incision, unknown uterine incision. Delivered at [facility], OR report in chart. Low transverse uterine incision noted. AMA (advanced maternal age) multigravida 35+ Overview: Age 38 at [facility] Opted out of genetic screening Last [...] as of this encounter (statuses as of 10/03/2023) Resolved Problems Problem Noted Date Diagnosed Date [...] as of this encounter (statuses as of 10/03/2023) Immunizations Name Administration Dates Next Due COVID-19, mRNA, LNR-S, Bival ent, PF, 3 mcg/0.2 ml ([employer]) 6m to 4 years 07/26/2022 Covid-19 Ad26, [...] encounter Miscellaneous Notes * Telephone Encounter - Alisha Hirsch PA-C - 10/02/2023 12:49 PM EST Covering for Dr. Terry. Reviewed with Juliet, note added to OB sticky note. Dr. Terry can address at first appointment 10/09/2023. * Telephone Encounter - Nisha Capps PA-C - 10/02/2023 8:33 AM EST Patient has questions about how her will be completed. Patient has a vertical skin incision and is wondering if the will be completed with a lowtransverse skin incision this time. Patient also states that epidural did not work well and patient is concerned about pain control. Patient is asking is she should meet with anesthesia ahead of time to make sure spinal will work well for this . Any input is much appreciated. Thank you, Nisha Gama PA-C documented in this encounter Plan of Treatment Upcoming Encounters Date Type Department Care Team (Late st Contact Info) Description 10/09/2023 9:15 AM EST Office Visit Gynecology/Obstetrics Lillian Kevin [address] [place] [address] Cholo Terry MD [address] [place] [place] [address] Sheri Kevin Stress Tests [place] [address] 10/16/2023 8:00 AM EST Imaging [place] [address] 11/06/2023 9:30 AM EST [place] [address] Health Maintenance Due Date Last Done Comments [...] filedocumented as of this encounter Care Teams Ramp Boss Relationship Specialty Start Date End Date Ijeoma Kaplan DO [address] [place] [address] PCP - General Family Medicine 07/22/17 documented as of this encounter
--- OUTSIDE RECORDS SUMMARY | 2023-12-03 05:43 | External Medical Summary | Summary of Care ---
Author Name Unknown Organization [facility] Address [address] [place] [address] Phone [phone] Care Team Providers Care Creative Developer Name Role Phone JosueIjeoma mistry Lela HOLLIDAY Primary Care Provider Reason for Visit * Reason Comments Return Visit Encounter Details Date Type Department Care Team (Late st Contact Info) Description 09/30/2023 12:00 PM EST Office Visit Gynecology/Obstetics [place] [address] [place] [address] Nisha Capps PA-C [address] [place] [address] Supervision of high-risk , third trimester*; Antepartum anemia complicating ; History of UTI; Multigravida of advanced maternal age in third trimester; H/O section; Obesity in , antepartum; Chronic hypertension in ; Need for prophylactic vaccination with combined efggouxhxa-rebbrvt-ba rtussis (DTP) vaccine Allergies No known active allergiesdocumented as of this encounter (statuses as of 10/04/2023) Medications Medication Sig Dispensed Refills Start Date End Date Status valACYclovir HCl 1 GM Oral Tablet (Valtrex)Indications: Recurrent cold sores Take 2 Tablets by mouth in the morning and 2 Tablets before bedtime. For 1 day for cold sores. 4 Tablet 12/10/2022 Active Omeprazole 20 MG Oral Capsule Delayed Release (PriLOSEC) Take 1 Capsule by mouth in the morning. 1 hour before the first meal of the day. 90 Capsule 12/10/2022 Active Labetalol HCl 100 MG Oral [...] mcgIndications:Vitamin B 12 deficiency 1000 mcg IM [id number] 05/13/2023 04/13/2024 Active vitamin b-12 (Cyanocobalamin) inj 1,000 mcgIndications:Vitamin B 12 deficiency 1000 mcg IM [id number] 09/19/2023 08/20/2024 Active documented as of this encounter (statuses as of 10/04/2023) Active Problems Problem Noted Date Diagnosed Date Antepartum anemia complicating 023 Overview: Hgb 10.7 at 26 wks, rx for iron Maternal vitamin B12 deficiency 09/03/2023 Overview: Start supplement 26w5d High thyroid stimulating hormone (TSH) level Overview: Ask a Doc sent to [facility] for recommendations, see encounter 09/03. Normal [...] assessment of proteinuria (24-hour urine protein or ufxvsxt-jm-gbsukqrraa ratio) and CBC, serum AST/ALT/creatinine. If patient [...] assessment of proteinuria (24-hour urine protein or cknattg-qf-wfvfkwrago ratio) and CBC, serum AST/ALT/creatinine. If patient [...] as of this encounter (statuses as of 10/04/2023) Resolved Problems Problem Noted Date Diagnosed Date [...] as of this encounter (statuses as of 10/04/2023) Immunizations Name Administration Dates Next Due COVID-19, mRNA, LNR-S, Bival ent, PF, 3 mcg/0.2 ml ([employer]) 6m to 4 years 07/26/2022 Covid-19 Ad26, [...] Sign Reading Time Taken Comments Blood Pressure 128/84 09/30/2023 11:34 AM EST Pulse - - Temperature - - Respiratory Rate - - Oxygen Saturation - - Inhaled Oxygen Concentration - - Weight 150.9 kg (332 lb 9.6 oz) 023 11:34 AM EST Height - - Body Mass Index 58.92 09/02/2023 8:37 AM EST documented in this encounter Progress Notes * Nisha Capps PA-C - 09/30/2023 11:39 AM EST Dieudonne Beth presents for visit at 30w4d. BP 128/84 | Wt (!) 150.9 kg (332 lb 9.6 oz) | LMP 02/28/2023 | BMI 58.92 kg/m | BSA 2.59 m Doing well. Denies vaginal bleeding, leaking of fluid, vaginal pressure, contractions, abdominal pain, or abnormal vaginal discharge. Denies headaches, blurry vision, or right upper quadrant pain. Patient states she feels good movement. Patient reports that mood is stable. Patient reports that heartburn is well controlled with Omeprazole. Patient agreeable to Tdap vaccine today. Blood pressure: <140/90's mmHg at home Physical Exam General: alert and oriented, no acute distress Pulmonary: normal respiratory effort, no accessory muscle use. Abdomen: gravid, soft, non-tender heart rate: 130's bpm OB Arnold Kevin Problems (from 04/28/23 to present) Problem Noted Resolved Antepartum anemia complicating 09/03/2023 by Mar Rhoades CRNP No Hgb 10.7 at 26 wks, rx for iron Maternal vitamin B12 deficiency 09/03/2023 by Mar Rhoades CRNP No Start supplement 26w5d High thyroid stimulating hormone (TSH) level 09/03/2023 by Mar Rhoades CRNP No Urinary tract infection in mother during second trimester of 07/08/2023 by Mar Rhoades CRNP No +E coli, Keflex sent 18w 4d Neg DONNA at 22 wks History of delivery of macrosomal infant 05/28/2023 by Mar Rhoades CRNP No 1st baby 9lb 6oz Supervision of high-risk , third trimester 05/07/2023 by Nicole Burns CRNP No Estimated Date of Delivery: 12/05/23 Continue vitamin. O positive. Rubella immune. S/p MATERNAL MEDICINE anatomy ultrasound. Passed 1 hour glucose test. CBC shows anemia - on iron and vitamin B12. Tdap vaccine completed. GBS culture at 36 weeks. Obesity in , antepartum 05/07/2023 by Nicole Burns CRNP No Pregravid BMI 55.64 Chronic hypertension in 05/07/2023 by Nicole Burns CRNP No Obtain baseline lab work MICHAEL (if not already done) with assessment of proteinuria (24-hour urine protein or pyvxipa-ly-juxrogvatf ratio) and CBC, serum AST/ALT/creatinine. If patient has had hypertension for 10 years or more, obtain an EKG and eye exam (if not performed within the past year). Recommend initiation of aspirin (81mg) daily, from 13 weeks until delivery, to decrease the risk ofsuperimposed preeclampsia. Daily home blood pressure monitoring, especially in the second half of the . It may be useful to have the patient validate their home device with their primary OB care provider's office. Patients with BP less than 140/90 maintained with antihypertensives should continue medication during . Discontinuation of ELIZABETH inhibitors or angiotensin type II receptor antagonists under the guidance ofthe primary care physician prior to conception of or upon knowledge of . Initiate or adjust antihypertensive medication if BP is 140/90 or greater on at least two occasionsat least 4 hours apart and refer patient back to Maternal- Medicine. Titrate medication to maintain blood pressure in a goal range 120-140/70-90. Labetalol and Nifedipine are considered safe for use in and these agents are considered as first-line therapy when indicated. Maternal Medicine ultrasound for anatomy at 19-20 weeks. surveillance as follows: If NOT being treated with anti-hypertensives: Maternal- Medicine ultrasound for growth between 28-30 weeks If being treated with anti-hypertensives: Maternal- Medicine ultrasound for growth every 4 weeks starting at 24-26 weeks surveillance weekly starting at 32 weeks gestation Delivery should be individualized based on blood pressure control and assessment of patient risk and is indicated as follows: For those with stable blood pressures not on anti-hypertensive medications: Between 38 0/7 and 39 6/7 weeks For those on anti-hypertensive medications: Between 37 0/7 and 39 6/7 weeks [...] 81 mg therapy at 13 weeks (05/30/23) H/O section 05/07/2023 by Nicole Burns CRNP No Prior c/s for arrest of descent, baby 9lb6oz. Vertical skin incision, unknown uterine incision. Delivered at [facility], OR report in chart. Low transverse uterine incision noted. AMA (advanced maternal age) multigravida 35+ 05/07/2023 by Nicole Burns CRNP No Age 38 at [facility] Opted out of genetic screening Plan: -Patient has questions about if skin incision can be low transverse for her C- section. Patient alsohas questions about anesthesia. Patient reports that pain control last delivery was not good and patient would like to discuss this further. Message sent to Ashutosh Vizcaino's [facility] physician team for advice as we do not manage [facility] deliveries. Patient aware. -Note: Tubal ligation consent Medicaid signed today (09/30/2023) in case needed. -Patient desires Tdap vaccine today. -O positive blood type. -Urine dipstick to check for protein and urine culture ordered today. History of UTI. -Advised patient to schedule next appointment with Ashutosh Kevin PRINT FINISHING WORKER physician. Patientagrees. -Advised weekly NSTs at 34 weeks. Patient aware. -Following with MATERNAL MEDICINE. -Heartburn well controlled with Omeprazole. -Patient reports that mood is stable. -CBC ordered to follow up on anemia. Counseled patient to call triage/go to labor and delivery if she has any vaginal bleeding, leaking of fluid, vaginal pressure, 6 or more painful contractions in an hour, abdominal pain, decreased movements, headaches, blurry vision, or right upper quadrant pain. Patient verbalized understanding. RTO in 2 weeks for return appointment or sooner if any concerns. Nisha Gama PA-C documented in this encounter Nursing Notes * Jany Mead CCMA - 09/30/2023 11:34 AM EST Pt here to discuss documented in this encounter Plan of Treatment Upcoming Encounters Date Type Department Care Team (Late st Contact Info) Description 10/09/2023 9:15 AM EST Office Visit Gynecology/Obstetrics Lillian Kevin [address] [place] [address] Cholo Terry MD [address] [place] [address] Sheri Kevin Stress Tests [place] [address] 10/16/2023 8:00 AM EST Imaging Maternal Medicine Imaging, [place] [address] 11/06/2023 9:30 AM EST Imaging Maternal Medicine [facility] [address] [place] [phone] Health Maintenance Due Date Last Done Comments [...] Procedure Name Priority Date/Time Associated Diagnosis Comments CULTURE, URINE, QUANTITATIVE Routine 09/30/2023 12:15 PM EST History of UTI URINALYSIS OBSTETRICS, POINT OF CARE Routine 09/30/2023 12:14 PM EST Supervision of high-risk , third trimester documented in this encounter Results * CULTURE, URINE, QUANTITATIVE (09/30/2023 12:15 PM EST) Culture Growth No significant growth 10/01/2023 4:[address] [facility] Urine Urine specimen obtained by clean catch procedure / Unknown Non-blood Collection / Unknown 09/30/2023 12:15 PM EST 09/30/2023 12:15 PM EST Nisha Hobbs PA-C LAB MICRO - GENERAL ORDERABLES Performing Organization Address City/State/[facility] Co de Phone Number [facility]ORY [facility] [address] [place] [address] * (ABNORMAL) URINALYSIS OBSTETRICS, POINT OF CARE (09/30/2023 12:14 PM EST) Color, Urine Dark Yellow(A) Light Yellow, Yellow 09/30/2023 12:20 PM EST LABORATORY [place] [facility] Clarity, Urine Clear Clear 09/30/2023 12:20 PM EST LABORATORY [place] [facility] Glucose, Urine Negative Negative mg/dL 09/30/2023 12:20 PM EST LABORATORY [place] [facility] Bilirubin, Urine Negative Negative 09/30/2023 12:20 PM EST LABORATORY [place] [facility] Ketone, Urine Negative Negative mg/dL 09/30/2023 12:20 PM EST LAB[facility]ATORY [place] [facility] Specific [place], Urine 1.025 1.003 - 1.030 09/30/2023 12:20 PM EST LAB[facility]ATORY [place] [facility] Blood, Urine Trace-intact (A) Negative 09/30/2023 12:20 PM EST LABORATORY [place] [facility] pH, Urine 6.0 5.0, 5.5, 6.0, 6.5, 7.0, 7.5 units 09/30/2023 12:20 PM EST LABORATORY [place] [facility] Protein, Urine Negative Negative mg/dL 09/30/2023 12:20 PM EST LABORATORY [place] [facility] Urobilinogen, Urine 0.2 0.2, 1.0 mg/dL 09/30/2023 12:20 PM EST LAB[facility]ATORY [place] [facility] Nitrite, Urine Negative Negative 09/30/2023 12:20 PM EST LAB[facility]ATORY [place] [facility] Esterase, Urine Negative Negative 09/30/2023 12:20 PM EST LABORATORY [place] [facility] Urine 09/30/2023 12:1 4 PM EST 09/30/2023 12:20 PM EST Nisha Hobbs PA-C LAB POINT OF CARE TEST DOCKED DEVICE UNSOLICITED RESULTS LABORATORY [place] [facility] [id number] [place] [address] documented in this encounter Visit Diagnoses Diagnosis Supervision of high-risk , third trimester- Primary Antepartum anemia complicating Anemia, antepartum History of UTI Personal history of urinary (tract) infection Multigravida of advanced maternal age in third trimester H/O section Other postprocedural status Obesity in , antepartum Obesity complicating , childbirth, or the puerperium, antepartum condition or complication Chronic hypertension in Benign essential hypertension complicating , childbirth, and the puerperium, unspecified as to episode of care Need for prophylactic vaccination with combined mweirzwdnh-vvpwlpx-eiolmowyh (DTP) vaccine documented in this encounter Care Teams Creative Developer Relationship Specialty Start Date End Date Ijeoma Kaplan DO [address] [place] [address] PCP - General Family Medicine 07/22/17 documented as of this encounter"
--- OUTSIDE RECORDS SUMMARY | 2023-12-03 05:43 | External Medical Summary | Summary of Care ---
Author Name Unknown Organization [facility] Address [address] [place] [address] Phone [phone] Care Team Providers Care Mortising Machine Operator Name Role Phone HebertdungYinkaa Lela HOLLIDAY Primary Care Provider Encounter Details Date Type Department Care Team (Late st Contact Info) Description 10/16/2023 8:00 AM EST Office Visit [facility] Obstetrics Maternal Medicine, [address] [address] Rosa Maria Mortensen [address] [place], [place] [id number] Chronic hypertension in *; Obesity in , [...] mcgIndications:Vitamin B 12 deficiency 1000 mcg IM [id number] 05/13/2023 04/13/2024 Active vitamin b-12 (Cyanocobalamin) inj 1,000 mcgIndications:Vitamin B 12 deficiency 1000 mcg IM [id number] 09/19/2023 08/20/2024 Active documented as of this [...] level Overview: Ask a Doc sent to [facility] for recommendations, see encounter 09/03. Normal [...] assessment of proteinuria (24-hour urine protein or lgrplre-mb-kvdelnherx ratio) and CBC, serum AST/ALT/creatinine. If patient [...] assessment of proteinuria (24-hour urine protein or pbxymcc-ht-zupnkaodlj ratio) and CBC, serum AST/ALT/creatinine. If patient [...] skin incision, unknown uterine incision. Delivered at [facility], OR report in chart. Low transverse uterine [...] LNR-S, Bival ent, PF, 3 mcg/0.2 ml ([employer]) 6m to 4 years 07/26/2022 Covid-19 Ad26, [...] 2:00 PM EST Office Visit Gynecology/Obstetric s Lillian Kevin [address] [place] [address] Mar Rhoades CRNP [address] [place] [address] [place] Non Stress Tests Arnold [address] [place] [address] Patient left without being seen* 10/30/2023 1:00 PM EST Office Visit Gynecology/Obstetric carmen Vizcaino'carmen Deans [address] [place] [address] Mar Rhoades CRNP [address] [place] [address] [place] Non Stress Tests Arnold [address] [place] [address] 11/05/2023 10:15 AM EST Office Visit Gynecology/Obstetric s [facility] Kevin [address] [place] [address] Nicole Burns CRNP [address] [place] [address] [place] Non Stress Tests Arnold [address] [place] [address] 11/06/2023 9:30 AM EST Imaging Maternal Medicine Imaging, Arnold Kevin [address] [place] [address] 11/12/2023 10:15 AM EST Office Visit Gynecology/Obstetric s [facility] Kevin [address] [place] [address] Nicole Burns CRNP [address] [place] [address] Kevin, Non Stress Tests Arnold [address] [place] [address] 11/19/2023 10:15 AM EST Office Visit Gynecology/Obstetric s [facility] Kevin [address] [place] [address] Nicole Burns CRNP [address] [place] [address] [place], Non Stress Tests Arnold [address] [place] [address] 11/26/2023 10:00 AM EST Office Visit Gynecology/Obstetric s [facility] Kevin [address] [place] [address] Nicole Burns CRNP [address] [place] [address] Kevin, Non Stress Tests Arnold [address] [place] [address] 12/03/2023 10:00 AM EST Office Visit Gynecology/Obstetric s [facility] Kevin [address] [place] [address] Nicole Burns RENEWABLE ENERGY ENGINEER [address] [place] [address] Kevin, Non Stress Tests Arnold [address] [place] [address] Health Maintenance Due Date Last Done Comments [...] decision documented in this encounter Care Teams Mortising Machine Operator Relationship Specialty Start Date End Date Ijeoma Kaplan DO [address] [place] [address] PCP - General Family Medicine 07/22/17 documented as of this encounter
--- OUTSIDE RECORDS SUMMARY | 2023-12-03 05:43 | External Medical Summary | Summary of Care ---
Author Name Unknown Organization [facility] Address [address] [facility] [place] [address] Phone [phone] Care Team Providers Care Sample Card Maker Name Role Phone JosueIjeoma mistry Lela HOLLIDAY Primary Care Provider Reason for Visit * Reason Comments Return Visit Encounter Details Date Type Department Care Team ([facility] st Contact Info) Description 10/09/2023 9:15 AM EST Office Visit Gynecology/Obstetric s Lillian Kevin [address] [place] [address] Cholo Terry MD [address] [place] [address] Sheri Kevin Stress Tests Arnold [address] [place] [address] Supervision of high-risk , third trimester*; Obesity in , antepartum; Chronic hypertension in ; H/O section; Multigravida of advanced maternal age in third trimester; History of delivery of macrosomal ; Urinary tract infection in mother during second trimester of ; Antepartum anemia complicating ; Maternal vitamin B12 deficiency; High thyroid stimulating hormone (TSH) level Allergies No known active allergiesdocumented as of this encounter (statuses as of 10/09/2023) Medications Medication Sig Dispensed Refills Start Date [...] mcgIndications:Vitamin B 12 deficiency 1000 mcg IM [id number] 05/13/2023 04/13/2024 Active vitamin b-12 (Cyanocobalamin) inj 1,000 mcgIndications:Vitamin B 12 deficiency 1000 mcg IM [id number] 09/19/2023 08/20/2024 Active documented as of this encounter (statuses as of 10/09/2023) Active Problems Problem Noted Date Diagnosed Date Antepartum anemia complicating 023 Overview: Hgb 10.7 at 26 wks, rx for iron Maternal vitamin B12 deficiency 09/03/2023 Overview: Start supplement 26w5d High thyroid stimulating hormone (TSH) level Overview: Ask a Doc sent to [facility] for recommendations, see encounter 09/03. Normal [...] assessment of proteinuria (24-hour urine protein or ifevwpi-pc-zgtupbqvzf ratio) and CBC, serum AST/ALT/creatinine. If patient [...] assessment of proteinuria (24-hour urine protein or euqpyvq-gj-lmdaadsrxo ratio) and CBC, serum AST/ALT/creatinine. If patient [...] incision, unknown uterine incision. Delivered at [facility], OR report in chart. Low [...] as of this encounter (statuses as of 10/09/2023) Resolved Problems Problem Noted Date Diagnosed Date [...] as of this encounter (statuses as of 10/09/2023) Immunizations Name Administration Dates Next Due COVID-19, [...] Sign Reading Time Taken Comments Blood Pressure 124/78 10/09/2023 9:08 AM EST Pulse - - Temperature - - Respiratory Rate - - Oxygen Saturation - - Inhaled Oxygen Concentration - - Weight 151.5 kg (334 lb) 10/09/2023 9:08 AM EST Height 160 cm (5' 3") 10/09/2023 9:08 AM EST Body Mass Index 59.17 10/09/2023 9:08 AM EST documented in this encounter Progress Notes * Cholo Terry MD - 10/09/2023 9:33 AM EST Pt doing well Body mass index is 59.17 kg/m. CHTN on meds Prior c/sec- wishes to have repeat c/sec Paper work sent to Janet,- she will steven case with 2 Attending MDs C/sec between 37-39 weeks if BP,s are stable on antihypertensives documented in this encounter Plan of Treatment Upcoming Encounters Date Type Department Care Team (Late st Contact Info) Description 10/16/2023 8:00 AM EST Imaging Maternal Medicine Imaging, Arnold Kevin [address] [place] [address] 10/16/2023 2:15 PM EST Office Visit Gynecology/Obstetrics Lillian Herberth [address] [place] [address] Alisha Hirsch PA-C [address] [place] [address] Sheri Kevin Stress Tests Arnold [address] [place] [address] 11/06/2023 9:30 AM EST Imaging Maternal Medicine Imaging, [facility] [address] [place] [address] Health Maintenance Due Date Last Done Comments [...] deficiency High thyroid stimulating hormone (TSH) level documented in this encounter Care Teams Sample Card Maker Relationship Specialty Start Date End Date Ijeoma Kaplan DO [address] [place] [address] PCP - General Family Medicine 07/22/17 documented as of this encounter
--- OUTSIDE RECORDS SUMMARY | 2023-12-03 05:43 | External Medical Summary | Summary of Care ---
Author Name Unknown Organization [facility] Address [address] [place] [address] Phone [phone] Care Team Providers Care Oil Dipper Name Role Phone JosueIjeoma mistry Lela HOLLIDAY Primary Care Provider Reason for Visit * Reason Comments Outpatient Testing Encounter Details Date Type Department Care Team (Late st Contact Info) Description 09/30/2023 12:20 PM [facility] [address] Have Lab Lock [address] [place] [id number] Antepartum anemia complicating Allergies No known active allergiesdocumented as of [...] mcgIndications:Vitamin B 12 deficiency 1000 mcg IM [id number] 05/13/2023 04/13/2024 Active vitamin b-12 (Cyanocobalamin) inj 1,000 mcgIndications:Vitamin B 12 deficiency 1000 mcg IM [id number] 09/19/2023 08/20/2024 Active documented as of this encounter (statuses as of 09/30/2023) Active Problems Problem Noted Date Diagnosed Date Antepartum anemia complicating 023 Overview: Hgb 10.7 at 26 wks, rx for iron Maternal vitamin B12 deficiency 09/03/2023 Overview: Start supplement 26w5d High thyroid stimulating hormone (TSH) level Overview: Ask a Doc sent to [facility] for recommendations, see encounter 09/03. Normal T3/T4 Urinary tract infection in m other during second trimester of 07/08/2023 Overview: +E coli, Keflex sent 18w 4d Neg DONNA at 22 wks History of delivery of macrosomal infant 023 Overview: 1st baby 9lb 6oz B12 deficiency 05/08/2023 Supervision of high-risk , unspecified trimester 05/07/2023 Overview: [facility] referral Obesity in , antepartum 05/07/2023 [...] assessment of proteinuria (24-hour urine protein or mnzkdty-tt-zjzbtoqmmu ratio) and CBC, serum AST/ALT/creatinine. If patient [...] assessment of proteinuria (24-hour urine protein or ktdyjps-cb-wmhrlgghwb ratio) and CBC, serum AST/ALT/creatinine. If patient [...] incision, unknown uterine incision. Delivered at [facility], [place] report in chart. Low [...] LNR-S, Bival ent, PF, 3 mcg/0.2 ml ([employer]) 6m to 4 years 07/26/2022 Covid-19 Ad26, [...] on file documented as of this encounter Plan of Treatment Upcoming Encounters Date Type Department Care Team (Late st Contact Info) Description 10/10/2023 8:30 AM EST Office Visit Gynecology/Obstetrics Lillian Kevin [address] [place] [address] Nicole Burns CRNP [address] [place] [address] 10/16/2023 8:00 AM EST Imaging Maternal Medicine Imaging, Arnold Kevin [address] [place] [address] 11/06/2023 9:30 AM EST Imaging Maternal Medicine Imaging, Arnold Kevin [address] [place] [address] Pending Results Name Type Priority Associated Diagnoses Date /Time CBC WITH WBC DIFFERENTIAL AND ANEMIA REFLEX WORKUP Lab Routine Antepartum anemia complicating 09/30/2023 12:24 PM EST ANEMIA CBC Lab Routine Antepartum anemia complicating 09/30/2023 12:24 PM EST DIFFERENTIAL, AUTOMATED Lab Routine Antepartum anemia complicating 09/30/2023 12:24 PM EST ANEMIA REFLEX CHEMISTRY HOLD Lab Routine Antepartum anemia complicating 09/30/2023 12:24 PM EST Health Maintenance Due Date Last Done Comments [...] as of this encounter Visit Diagnoses Diagnosis Antepartum anemia complicating Anemia, antepartum documented in this encounter Care Teams Oil Dipper Relationship Specialty Start Date End Date Ijeoma Kaplan DO [address] [place] [address] PCP - General Family Medicine 07/22/17 documented as of this encounter
--- OUTSIDE RECORDS SUMMARY | 2023-12-03 05:43 | External Medical Summary ---
Author Name Unknown Address Unknown Organization K01:[facility] [place] - [address] [facility] [address] Laboratory Report Ordering Provider Test Date Status JONAH APONTE 09/30/2023 12:24:06 Final Observation Date Value Abnormality Reference (Units ) Status SYNC LEUKOCYTES IN BLOOD BY AUTOMATED COUNT 09/30/2023 12:24:06 15.16 Above high normal 4.00-10.80 (K/uL) Final Segs 09/30/2023 12:24:06 73.4 40.0-75.0 (%) Final Lymphs % 09/30/2023 12:24:06 18.9 18.0-42.0 (%) Final Monos 09/30/2023 12:24:06 5.5 1.0-11.0 (%) Final Eosinophils 09/30/2023 12:24:06 1.0 0.0-6.0 (%) Final Basos 09/30/2023 12:24:06 0.3 0.0-2.0 (%) Final Immature Granulocyte, Percent 09/30/2023 12:24:06 0.9 0.0-2.0 (%) Final Absolute Segs 09/30/2023 12:24:06 11.13 Above high normal 1.80-7.70 (K/uL) Final Lymphs, absolute 09/30/2023 12:24:06 2.87 1.00-4.80 (K/ul) Final Monos, Abs 09/30/2023 12:24:06 0.83 0.00-1.10 (K/uL) Final Eos, Abs 09/30/2023 12:24:06 0.15 0.00-0.70 (K/uL) Final Basos, Abs 09/30/2023 12:24:06 0.04 0.00-0.20 (K/uL) Final Immature Granulocytes, Number 09/30/2023 12:24:06 0.14 0.00-0.20 (K/uL) Final Performing Location [facility] [place] - [facility] [place] [address]
--- OUTSIDE RECORDS SUMMARY | 2023-12-03 05:44 | External Medical Summary | Summary of Care ---
Author Name Unknown Organization [facility] Address [address] [place] [address] Phone [phone] Care Team Providers Care Flower Shop Manager Name Role Phone JosueIjeoma mistry Lela HOLLIDAY Primary Care Provider [phone] Reason for Visit * Reason Comments Acute Encounter Details Date Type Department Care Team (Late st Contact Info) Description 09/22/2023 1:40 PM EST [facility] [address] [place] [address] February, Juvencio Chen MD [address] [place] [address] Viral URI*; Laryngitis Allergies No known active allergiesdocumented as of this encounter (statuses as of 09/22/2023) Medications Medication Sig Dispensed Refills Start Date [...] mcgIndications:Vitamin B 12 deficiency 1000 mcg IM [id number] 05/13/2023 04/13/2024 Active vitamin b-12 (Cyanocobalamin) inj 1,000 mcgIndications:Vitamin B 12 deficiency 1000 mcg IM [id number] 09/19/2023 08/20/2024 Active documented as of this encounter (statuses as of 09/22/2023) Active Problems Problem Noted Date Diagnosed Date Antepartum anemia complicating 023 Overview: Hgb 10.7 at 26 wks, rx for iron Maternal vitamin B12 deficiency 09/03/2023 Overview: Start supplement 26w5d High thyroid stimulating hormone (TSH) level Overview: Ask a Doc sent to [facility] for recommendations, see encounter 09/03. Normal T3/T4 Urinary tract infection in m other during second trimester of 07/08/2023 Overview: +E coli, Keflex sent 18w 4d Neg DONNA at 22 wks History of delivery of macrosomal infant 023 Overview: 1st baby 9lb 6oz B12 deficiency 05/08/2023 Supervision of high-risk , unspecified trimester 05/07/2023 Overview: [facility] referral Obesity in , antepartum 05/07/2023 [...] assessment of proteinuria (24-hour urine protein or lbkiphi-mj-krpymoxvbx ratio) and CBC, serum AST/ALT/creatinine. If patient [...] assessment of proteinuria (24-hour urine protein or mhdcqps-sg-xzfvpzplaf ratio) and CBC, serum AST/ALT/creatinine. If patient [...] skin incision, unknown uterine incision. Delivered at [facility], [place] report in chart. Low transverse uterine incision noted. AMA (advanced maternal age) multigravida 35+ Overview: Age 38 at [facility] Opted out of genetic screening Last Assessment [...] as of this encounter (statuses as of 09/22/2023) Resolved Problems Problem Noted Date Diagnosed Date [...] as of this encounter (statuses as of 09/22/2023) Immunizations Name Administration Dates Next Due COVID-19, mRNA, LNR-S, Bival ent, PF, 3 mcg/0.2 ml ([employer]) 6m to 4 years 07/26/2022 Covid-19 Ad26, Single Dose (Carla/J&J) 021 PPD 05/13/2023,06/28/2021,09/08/2017 SEASONAL INFLUENZA, PF, 6 M & Above, IM , (FLULAVAL or FLUZONE) 08/05/2023,06/28/2021,07/22/2017 Seasonal Influenza, Quadriva lent, No Preserve, IM 07/26/2022,07/25/2016 Seasonal Influenza, Split, I IV3, With Preserve, Inj 08/11/2015 TDAP (age 10 and older)(Boostrix) 01/07/2017 documented as of this encounter Social History [...] as of this encounter Progress Notes * Juvencio Jason MD - 09/22/2023 1:45 PM EST Images from the original note were not included. Assessment and Plan 36-48 hours of viral URI with body aches. Main concern is for influenza. She will come to the office now for flu swab. If she is positive would recommend treating with Tamiflu which is safe in . Otherwise continue nfdz-viz-kuwipmi medications including Benadryl and Tylenol for comfort. Push fluids. 1. Viral URI - INFLUENZA A/B RSV SARS-COV2,PCR; Future 2. Laryngitis - INFLUENZA A/B RSV SARS-COV2,PCR; Future Wrap-Up Follow up in office today for flu swab. History of Present Illness The patient is a 38 year old female at 29 weeks gestation with past medical history of obesity, HTN, IBS, migraine who presents with illness. 38-year-old female who presents with 36-48 hours of low-grade fevers, chest congestion, sore throat, laryngitis, body aches. She was not had nausea or vomiting. She was able to keep food down and remain hydrated. She was COVID negative based on home test. She has been using Tylenol and Benadryl at night. Physical Exam There were no vitals filed for this visit. Physical Exam Physical Exam Constitutional: General: She is not in acute distress. Pulmonary: Effort: Pulmonary effort is normal. No respiratory distress. Neurological: General: No focal deficit present. Mental Status: She is alert. documented in this encounter Plan of Treatment Upcoming Encounters Date Type Department Care Team (Late st Contact Info) Description 09/23/2023 9:00 AM EST Office Visit Gynecology/Obstetrics [address] [place] [address] Cholo Terry MD [address] [facility] [place] [address] 09/23/2023 2:50 PM EST Laboratory Laboratory, [place] [address] [place] [address] [place], Laboratory [address] [place] [address] 10/16/2023 8:00 AM EST Imaging Maternal Medicine Imaging, [facility] [address] [facility] [place] [address] 11/06/2023 9:30 AM EST Imaging Maternal Medicine Imaging, [address] [place] [address] Scheduled Orders Name Type Priority Associated Diagnoses Orde r Schedule INFLUENZA A/B RSV SARS-COV2,PCR Lab Routine Viral URI Laryngitis Expected: 09/22/2023 (Approximate), Expires: 09/21/2024 Health Maintenance Due Date Last Done Comments Hepatitis B (1 of 3 - 3-dose series) 1985 COVID-19 Vaccine (2 - 2022- season) 2023 07/26/2022, 03/30/2021 Depression Screening 05/13/2024 05/13/2023 GFR 09/02/2024 09/02/2023, 04/19, 11/03/2019, Additional history exists Diabetes Screening 05/07/2026 05/07/2023, 0 05/07/2023, 11/03/2019, Additional history exists Pap Smear 05/07/2026 05/07/2023, 10/20, 02/14/2009 (Done elsewhere) DTaP,Tdap,and Td Vaccines (2 - Td or Tdap) 01/07/2027 01/07/2017 Cervical Cancer Screening 05/07/2028 HPV/Co-Test 05/07/2028 05/07/2023 Influenza Vaccine (FLU shot) Completed , 07/26/2022, [...] as of this encounter Visit Diagnoses Diagnosis Viral URI- Primary Acute upper respiratory infections of unspecified site Laryngitis Acute laryngitis, without mention of obstruction documented in this encounter Administered Medications Active Administered Medications - up to 3 most recent administrations Medication Order MAR Action Action Date Dose Rate Site vitamin b-12 (Cyanocobalamin) inj 1,000 mcg 1,000 mcg, Intramuscular, [id number], First dose on Fri05/13/23 at 0945, Last dose on Fri03/16/24 at 0945, For 12 doses Given 09/22/2023 2:17 PM EST 1,000 mcg Deltoid Right Upper Given 05/13/2023 9:21 AM EDT 1,000 mcg De ltoid Left Upper documented in this encounter Care Teams Flower Shop Manager Relationship Specialty Start Date End Date Ijeoma Kaplan DO [address] [facility] [place] [address] PCP - General Family Medicine 07/22/17 documented as of this encounter
--- OUTSIDE RECORDS SUMMARY | 2023-12-03 05:44 | External Medical Summary | Summary of Care ---
Author Name Unknown Organization [facility] Address [address] [facility] [place] [address] Phone [phone] Care Team Providers Care Double Cutter Name Role Phone JosueIjeoma mistry Lela HOLLIDAY Primary Care Provider [phone] Reason for Visit * Reason Onset Date Comments Test Results 09/03/2023 Encounter Details Date Type Department Care Team ([facility] st Contact Info) Description 09/03/2023 Telephone Gynecology/Obstetrics [facility] [address] [place] [address] BackerMar CRNP [address] [place] [address] Test Results Allergies No known active allergiesdocumented as of this encounter (statuses as of 09/03/2023) Medications Medication Sig Dispensed Refills Start Date [...] mcgIndications:Vitamin B 12 deficiency 1000 mcg IM [id number] 05/13/2023 04/13/2024 Active documented as of this encounter (statuses as of 09/03/2023) Active Problems Problem Noted Date Diagnosed Date Antepartum anemia complicating 023 Overview: Hgb 10.7 at 26 wks, rx for iron Maternal vitamin B12 deficiency 09/03/2023 Overview: Start supplement 26w5d High thyroid stimulating hormone (TSH) level Overview: Ask a Doc sent to [facility] for recommendations Urinary tract infection in m other during second trimester of 07/08/2023 Overview: +E coli, Keflex sent 18w 4d Neg DONNA at 22 wks History of delivery of macrosomal 023 Overview: 1st baby 9lb 6oz B12 deficiency 05/08/2023 Supervision of high-risk , unspecified trimester 05/07/2023 Overview: [facility] referral Obesity in , antepartum 05/07/2023 Overview: [...] assessment of proteinuria (24-hour urine protein or stksorz-oy-phcarczplb ratio) and CBC, serum AST/ALT/creatinine. If patient [...] assessment of proteinuria (24-hour urine protein or tmxzgvg-tj-dsbvxbguvu ratio) and CBC, serum AST/ALT/creatinine. If patient [...] skin incision, unknown uterine incision. Delivered at [facility], [place] report in chart. Low transverse [...] as of this encounter (statuses as of 09/03/2023) Resolved Problems Problem Noted Date Diagnosed Date [...] as of this encounter (statuses as of 09/03/2023) Immunizations Name Administration Dates Next Due COVID-19, mRNA, LNR-S, Bival ent, PF, 3 mcg/0.2 ml ([employer]) 6m to 4 years 07/26/2022 Covid-19 Ad26, [...] encounter Miscellaneous Notes * Telephone Encounter - Mar Rhoades CRNP - 09/03/2023 8:49 AM EST Rx sent. EDNA Elizabeth * Telephone Encounter - Lorenza Gaitan LPN - 09/03/2023 8:43 AM EST Patient notified. Pharmacy updated. * Telephone Encounter - Mar Rhoades CRNP - 09/03/2023 7:51 AM EST Anemia on CBC, and low B12 - sending Rx for both. Take the iron twice a day with vitamin C, at least an hour apart from vitamins and food with dairy, coffee/tea. If constipation occurs, can use colace OTC. Will recheck CBC in 4 weeks. She passed her 3 hr glucose, no GDM. Her TSH is high - no documented diagnosis of hypothyroid. I am sending a message to [facility] to see whattheir recommendations are for next steps. Please confirm pharmacy for meds. EDNA Elizabeth documented in this encounter Plan of Treatment Upcoming Encounters Date Type Department Care Team (Late st Contact Info) Description 09/18/2023 9:30 AM EST Imaging Maternal Medicine Imaging, Arnold Kevin [address] [place] [address] 09/23/2023 9:00 AM EST Office Visit Gynecology/Obstetrics [facility] [address] [place] [address] Cholo Terry MD [address] [place] [address] 10/09/2023 9:30 AM EST Imaging Maternal Medicine Imaging, Arnold Kevin [address] [place] [address] Health Maintenance Due Date Last Done Comments [...] encounter Visit Diagnoses Diagnosis Antepartum anemia complicating - Primary Anemia, antepartum Maternal vitamin B12 deficiency High thyroid stimulating hormone (TSH) level documented in this encounter Care Teams Double Cutter Relationship Specialty Start Date End Date Ijeoma Kaplan DO [address] [facility] [place] [address] PCP - General Family Medicine 07/22/17 documented as of this encounter
--- OUTSIDE RECORDS SUMMARY | 2023-12-03 05:44 | External Medical Summary | Summary of Care ---
Author Name Unknown Organization [facility] Address [address] [place] [address] Phone [phone] Care Team Providers Care Drum Filler Name Role Phone JosueIjeoma mistry Lela HOLLIDAY Primary Care Provider Reason for Visit * Reason Comments Acute Encounter Details Date Type Department Care Team (Late st Contact Info) Description 09/22/2023 1:40 PM EST [facility] [address] [place] [address] February, Juvencio Chen MD [address] [place] [address] Viral URI*; Laryngitis Allergies No [...] mcgIndications:Vitamin B 12 deficiency 1000 mcg IM [id number] 05/13/2023 04/13/2024 Active vitamin b-12 (Cyanocobalamin) inj 1,000 mcgIndications:Vitamin B 12 deficiency 1000 mcg IM [id number] 09/19/2023 08/20/2024 Active documented as of this [...] of high-risk , unspecified trimester 05/07/2023 Overview: [facility] referral Obesity in , antepartum 05/07/2023 [...] assessment of proteinuria (24-hour urine protein or pmboamq-rt-bcogoyfmpe ratio) and CBC, serum AST/ALT/creatinine. If patient [...] assessment of proteinuria (24-hour urine protein or uenwkrq-jc-eevqgrdech ratio) and CBC, serum AST/ALT/creatinine. If patient [...] skin incision, unknown uterine incision. Delivered at [facility], [place] report in chart. Low transverse uterine incision noted. AMA (advanced maternal age) multigravida 35+ Overview: Age 38 at [facility] Opted out of genetic screening Last [...] LNR-S, Bival ent, PF, 3 mcg/0.2 ml ([employer]) 6m to 4 years 07/26/2022 Covid-19 Ad26, [...] which is safe in . Otherwise continue fxar-ouu-pxfeyfu medications including Benadryl and Tylenol for comfort. [...] 09/23/2023 9:00 AM EST Office Visit Gynecology/Obstetrics [address] [place] [address] Cholo Terry MD [address] [place] [address] 09/23/2023 2:50 PM EST Laboratory Laboratory, [place] [address] [place] [address] [place], Laboratory [address] [place] [address] 10/16/2023 8:00 AM EST Imaging Maternal Medicine Imaging, [facility] [address] [facility] [place] [address] 11/06/2023 9:30 AM EST Imaging Maternal Medicine Imaging, [address] [place] [address] Scheduled Orders Name [...] (Cyanocobalamin) inj 1,000 mcg 1,000 mcg, Intramuscular, [id number], First dose on Fri05/13/23 at 0945, Last dose on Fri03/16/24 at 0945, For 12 doses Given 09/22/2023 2:17 PM EST 1,000 mcg Deltoid Right Upper Given 05/13/2023 9:21 AM EDT 1,000 mcg De ltoid Left Upper documented in this encounter Care Teams Drum Filler Relationship Specialty Start Date End Date Ijeoma Kaplan DO [address] [facility] [place] [address] PCP - General Family Medicine 07/22/17 documented as of this encounter
--- OUTSIDE RECORDS SUMMARY | 2023-12-03 05:44 | External Medical Summary | Summary of Care ---
Author Name Unknown Organization [facility] Address [address] [place] [address] Phone [phone] Care Team Providers Care Education Spec Name Role Phone [place] Ijeoma Lela HOLLIDAY Primary Care Provider Encounter Details Date Type Department Care Team (Late st Contact Info) Description 09/18/2023 9:30 AM EST Office Visit Guitar Instructor Obstetrics Maternal Medicine, [address] [address] Rosa Maria Mortensen [address] [place], [place] [id number] Chronic hypertension in *; Obesity in , antepartum; Multigravida of advanced maternal age in third trimester; Ultrasound for screening for growth restriction; 28 weeks gestation of Allergies No known active allergiesdocumented as of this encounter (statuses as of 09/18/2023) Medications Medication Sig Dispensed Refills Start Date [...] mcgIndications:Vitamin B 12 deficiency 1000 mcg IM [id number] 05/13/2023 04/13/2024 Active documented as of this encounter (statuses as of 09/18/2023) Active Problems Problem Noted Date Diagnosed Date Antepartum anemia complicating 023 Overview: Hgb 10.7 at 26 wks, rx for iron Maternal vitamin B12 deficiency 09/03/2023 Overview: Start supplement 26w5d High thyroid stimulating hormone (TSH) level Overview: Ask a Doc sent to [facility] for recommendations, see encounter 09/03. Normal T3/T4 Urinary tract infection in m other during second trimester of 07/08/2023 Overview: +E coli, Keflex sent 18w 4d Neg DONNA at 22 wks History of delivery of macrosomal 023 Overview: 1st baby 9lb 6oz B12 deficiency 05/08/2023 Supervision of high-risk , unspecified trimester 05/07/2023 Overview: [facility] referral Obesity in , antepartum 05/07/2023 [...] assessment of proteinuria (24-hour urine protein or lhfjdew-xm-xxrabfszhr ratio) and CBC, serum AST/ALT/creatinine. If patient [...] assessment of proteinuria (24-hour urine protein or oraepzz-fu-blzlckslql ratio) and CBC, serum AST/ALT/creatinine. If patient [...] skin incision, unknown uterine incision. Delivered at [facility], [place] report in chart. Low transverse uterine incision noted. AMA (advanced maternal age) multigravida 35+ Overview: Age 38 at [facility] Opted out of genetic screening Last Assessment [...] as of this encounter (statuses as of 09/18/2023) Resolved Problems Problem Noted Date Diagnosed Date [...] as of this encounter (statuses as of 09/18/2023) Immunizations Name Administration Dates Next Due COVID-19, mRNA, LNR-S, Bival ent, PF, 3 mcg/0.2 ml ([employer]) 6m to 4 years 07/26/2022 Covid-19 Ad26, [...] this encounter Progress Notes * Rosa Maria Mortensen, DO - 09/18/2023 11:17 AM EST Dieudonne presented today at 28w6d for an ultrasound for the following indications: Chronic hypertension in Obesity in , antepartum Multigravida of advanced maternal age in third trimester Ultrasound for screening for growth restriction 28 weeks gestation of Ultrasound summary: 28w 6d to complete the anatomy survey as well as assess growth. No evidence of structural abnormalities noted today. Normal interval growth with EFW 1453 g at 71%%ile. Normal SANJAY. I reviewed the ultrasound images. Dieudonne was given the opportunity to meet with me if she had any questions. Please refer to the ultrasound report for additional details about today's ultrasound examination. RECOMMENDATIONS: Recommend follow up ultrasound with MFM in 4-6 weeks for growth secondary to above indications. See prior formal MFM consultation note. Thank you for allowing us to participate in the care of this patient. Please call with any questions. Rosa Maria Mortensen DO 09/18/2023 11:17 AM documented in this encounter Plan of Treatment Upcoming Encounters Date Type Department Care Team (Late st Contact Info) Description 09/23/2023 9:00 AM EST Office Visit Gynecology/Obstetrics [facility] [address] [place] [address] Cholo Terry MD [address] [place] [address] 10/16/2023 8:00 AM EST Imaging Maternal Medicine Imaging, [facility] [address] [place] [address] 11/06/2023 9:30 AM EST Imaging Maternal Medicine Imaging, [facility] [address] [place] [address] Health Maintenance Due Date Last Done Comments [...] of advanced maternal age in third trimester Ultrasound for screening for growth restriction screening for growth retardation using ultrasonics 28 weeks gestation of state, incidental documented in this encounter Care Teams Education Spec Relationship Specialty Start Date End Date Ijeoma Kaplan DO [address] [place] [address] PCP - General Family Medicine 07/22/17 documented as of this encounter
--- OUTSIDE RECORDS SUMMARY | 2023-12-03 05:44 | External Medical Summary ---
Author Name Unknown Address Unknown Organization K0G:[facility]ORY [facility] [address] - [address] [place] [address] Laboratory Report Ordering Provider Test Date Status SUKI BAXTER 09/02/2023 10:54:57 Final Observation Date Value Abnormality Reference (Units ) Status Glucose [Mass/volume] in Serum or Plasma --3 hours post dose glucose 09/02/2023 10:54:57 78 70-139 (mg/dL) Final Performing Location LABORATORY [place] [address] - [address] [place] [address]
--- OUTSIDE RECORDS SUMMARY | 2023-12-03 05:44 | External Medical Summary ---
Author Name Unknown Address Unknown Organization K01:[facility] [place] [address] [facility] [address] Laboratory Report Ordering Provider Test Date Status 09/22/2023 14:18:00 Final Observation Date Value Abnormality Reference (Units ) Status SARS Coronavirus 2 09/22/2023 14:18:00 Negative N egative Final No SARS-CoV2 Coronavirus RNA detected by PCR (amplified probe).
This automated test was developed and its performance characteristics determined by [facility]. It has not been cleared or approved by the U.S. Food and Drug Administration (FDA). FDA does not require this test to go thru premarket FDA review. This test is used for clinical purposes. It should not be regarded as investigational or for research. This laboratory is certified under the Clinical Laboratory Improvement Amendments (CLIA) as qualified to perform high complexity clinical laboratory testing.

This test is a nucleic acid amplification test (NAAT), a reverse transcriptase polymerase chain reaction (RT-PCR) test, or a Centers for Disease Control-acceptable equivalent. The test is performed in a high complexity Clinical Laboratory Improvement Amendments-(CLIA) certified laboratory. The test is acceptable for SARS-CoV-2 diagnosis, surveillance, and travel within the [place] and to most countries. Please check with local testing authorities about requirements before travel.

The validation of bronchial specimens, tracheal aspirates, and sputum for this assay was developed and performance characteristics determined by [facility]. The validation of alternate specimen types has not been cleared or approved by the U.S. Food and Drug Administration (FDA). It has been determined that such clearance or approval is not necessary. Influenza virus A RNA [Prese nce] in Specimen by [facility] with probe detection 09/22/2023 14:18:00 Negative Negative Final No Influenza A RNA detected by PCR (amplified probe) Influenza virus B RNA [Prese nce] in Specimen by ROSY with probe detection 09/22/2023 14:18:00 Negative Negative Final No Influenza B RNA detected by PCR (amplified probe) Respiratory syncytial virus RNA [Identifier] in Specimen by ROSY with probe detection 09/22/2023 14:18:00 Negative Negative Final No Respiratory Syncytial Vir us RNA detected by PCR (amplified probe) Performing Location LAB[facility]ATORY [place] [address] [facility] [address]
--- OUTSIDE RECORDS SUMMARY | 2023-12-03 05:44 | External Medical Summary | Summary of Care ---
Author Name Unknown Organization [facility] Address [address] [place] [address] Phone [phone] Care Team Providers Care Wrist Liner Name Role Phone JosueIjeoma mistry Lela HOLLIDAY Primary Care Provider Reason for Visit * Reason Comments Acute Encounter Details Date Type Department Care Team (Late st Contact Info) Description 09/22/2023 1:40 PM EST [facility] [address] [place] [address] February, Juvencio Chen MD [address] [place] [address] Viral URI*; Laryngitis Allergies No [...] mcgIndications:Vitamin B 12 deficiency 1000 mcg IM [id number] 05/13/2023 04/13/2024 Active vitamin b-12 (Cyanocobalamin) inj 1,000 mcgIndications:Vitamin B 12 deficiency 1000 mcg IM [id number] 09/19/2023 08/20/2024 Active documented as of this encounter (statuses as of 09/22/2023) Active Problems Problem Noted Date Diagnosed Date Antepartum anemia complicating 023 Overview: Hgb 10.7 at 26 wks, rx for iron Maternal vitamin B12 deficiency 09/03/2023 Overview: Start supplement 26w5d High thyroid stimulating hormone (TSH) level Overview: Ask a Doc sent to [facility] for recommendations, see encounter 09/03. Normal T3/T4 Urinary tract infection in m other during second trimester of 07/08/2023 Overview: +E coli, Keflex sent 18w 4d Neg DONNA at 22 wks History of delivery of macrosomal infant 023 Overview: 1st baby 9lb 6oz B12 deficiency 05/08/2023 Supervision of high-risk , unspecified trimester 05/07/2023 Overview: [facility] referral Obesity in , antepartum 05/07/2023 [...] assessment of proteinuria (24-hour urine protein or hhxbipx-jj-pnvytuafbg ratio) and CBC, serum AST/ALT/creatinine. If patient [...] assessment of proteinuria (24-hour urine protein or wzzzvit-fk-dopjhkdmbg ratio) and CBC, serum AST/ALT/creatinine. If patient [...] age) multigravida 35+ Overview: Age 38 at [facility] Opted out of genetic screening Last [...] LNR-S, Bival ent, PF, 3 mcg/0.2 ml (Sample6) 6m to 4 years 07/26/2022 Covid-19 Ad26, [...] which is safe in . Otherwise continue wkce-yhi-vwyztvw medications including Benadryl and Tylenol for comfort. [...] 09/23/2023 9:00 AM EST Office Visit Gynecology/Obstetrics [address] [place] [address] Cholo Terry MD [address] [facility] [address] 09/23/2023 2:50 PM EST Laboratory Laboratory, [facility] [address] [place] [address] [facility] [address] [place] [address] 10/16/2023 8:00 AM EST Imaging Maternal Medicine Imaging, [facility] 132 [facility] [place] [address] 11/06/2023 9:30 AM EST Imaging Maternal Medicine Imaging, [address] [place] [address] Scheduled Orders Name [...] mention of obstruction documented in this encounter Care Teams Wrist Liner Relationship Specialty Start Date End Date [facility]oma Kaplan [facility] [address] [facility] [address] PCP - General Family Medicine 07/22/17 documented as of this encounter
--- OUTSIDE RECORDS SUMMARY | 2023-12-03 05:44 | External Medical Summary | Summary of Care ---
Author Name Unknown Organization [facility] Address [address] [facility] [address] Phone [phone] Care Team Providers Care Track Fitter Name Role Phone HebertdungIjeoma DO Primary Care Provider [phone] Reason for Visit * Reason Comments Return Visit Encounter Details Date Type Department Care Team ([facility] st Contact Info) Description 09/02/2023 9:00 AM EST Office Visit Gynecology/Obstetric s Lillian Kevin [address] [place] [address] Nicole Burns CRNP [address] [place] [address] Supervision of high-risk , unspecified trimester*; Obesity in , antepartum; Chronic hypertension in ; H/O section; Multigravida of advanced maternal age in second trimester; History of delivery of macrosomal ; Urinary tract infection in mother during second trimester of Allergies No known active allergiesdocumented as of this encounter (statuses as of 09/02/2023) Medications Medication Sig Dispensed Refills Start Date End Date Status valACYclovir HCl 1 GM Oral Tablet (Valtrex)Indications :Recurrent cold sores Take 2 Tablets by mouth [...] Tablet Chewable Take by mouth. 0 Active Hospital, Clinic, or Other Facility Administered Medication Ordered Dose Route Frequency Start Date End Date Status vitamin b-12 (Cyanocobalamin) inj 1,000 mcgIndications:Vitamin B 12 deficiency 1000 mcg IM [id number] 05/13/2023 04/13/2024 Active documented as of this encounter (statuses as of 09/02/2023) Active Problems Problem Noted Date Diagnosed Date Urinary tract infection in m other during second trimester of 07/08/2023 Overview: +E coli, Keflex sent 18w 4d Neg DONNA at 22 wks History of delivery of macrosomal infant 023 Overview: 1st baby 9lb 6oz B12 deficiency 05/08/2023 Supervision of high-risk , unspecified trimester 05/07/2023 Overview: M referral Obesity in , antepartum 05/07/2023 Overview: [...] assessment of proteinuria (24-hour urine protein or snwflax-rv-zpotlcpybo ratio) and CBC, serum AST/ALT/creatinine. If patient [...] assessment of proteinuria (24-hour urine protein or bysfgdt-ea-pdogcayijx ratio) and CBC, serum AST/ALT/creatinine. If patient [...] skin incision, unknown uterine incision. Delivered at [facility], OR report in chart. Low transverse [...] as of this encounter (statuses as of 09/02/2023) Resolved Problems Problem Noted Date Diagnosed Date [...] as of this encounter (statuses as of 09/02/2023) Immunizations Name Administration Dates Next Due COVID-19, mRNA, LNR-S, Bival ent, PF, 3 mcg/0.2 ml ([employer]) 6m to 4 years 07/26/2022 Covid-19 Ad26, Single Dose ([employer]/J&TSB) 021 PPD 05/13/2023,06/28/2021,09/08/2017 SEASONAL INFLUENZA, PF, 6 [...] Sign Reading Time Taken Comments Blood Pressure 110/70 09/02/2023 8:37 AM EST Pulse - - Temperature - - Respiratory Rate - - Oxygen Saturation - - Inhaled Oxygen Concentration - - Weight 151.3 kg (333 lb 9.6 oz) 09/02/2023 8:37 AM EST Height 160 cm (5' 3") 09/02/2023 8:37 AM EST Body Mass Index 59.09 09/02/2023 8:37 AM EST documented in this encounter Progress Notes * Nicole Burns CRNP - 09/02/2023 9:07 AM EST 26w4d Still with vulvar burning sensation intermittently, especially after washing or wiping. She is wearing a pantyliner daily for DG, but changing every 1-2 hours. Was negative for vaginal infection at last visit; symptoms essentially the same, though less at this point. Suggested barrier cream to area, as this could just be irritation from moisture and pantyliner. No other concerns. Baby is very active. No contractions or bleeding. Completing 3hr GTT today. Desires repeat c/s with BTL. OR report is scanned in to chart confirming low transverse incision. She states her epidural did not work last time, would like to discuss general anesthesia for delivery. Will have her schedule her next appt with physician to discuss. EDNA Shanks * Anum Matias LPN - 09/02/2023 8:41 AM EST 26w4d Pt completing 3/hr gtt. Pt had eswab/UC done on 08/14 for spotting after intercourse, all WNL, still having burning, throbbing. documented in this encounter Plan of Treatment Upcoming Encounters Date Type Department Care Team (Late st Contact Info) Description 09/18/2023 9:30 AM EST Imaging Maternal Medicine Imaging, [facility] [address] [place] [address] 10/09/2023 9:30 AM EST Imaging Maternal Medicine Imaging, [facility] 132 [facility] [place] [address] Health Maintenance Due Date Last Done Comments Hepatitis B (1 of 3 - 3-dose series) 1985 COVID-19 Vaccine ( season) 2023 07/26/2022, 03/30/2021 GFR 05/07/2024 05/07/2023, 10/20, 01/07/2017, Additional history exists Depression Screening 05/13/2024 05/13/2023 Diabetes Screening 05/07/2026 05/07/2023, 0 05/07/2023, 11/03/2019, [...] Visit Diagnoses Diagnosis Supervision of high-risk , unspecified trimester- Primary Obesity in , antepartum Obesity complicating , childbirth, or the puerperium, antepartum condition or complication Chronic hypertension in Benign essential hypertension complicating , childbirth, and the puerperium, unspecified as to episode of care H/O section Other postprocedural status Multigravida of advanced maternal age in second trimester History of delivery of macrosomal infant Urinary tract infection in mother during second trimester of documented in this encounter Care Teams Track Fitter Relationship Specialty Start Date End Date Ijeoma Kaplan DO [address] [place] [address] PCP - General Family Medicine 07/22/17 documented as of this encounter
--- OUTSIDE RECORDS SUMMARY | 2023-12-03 05:44 | External Medical Summary ---
Author Name Unknown Address Unknown Organization K0G[facility] [address] [place] [address] Laboratory Report Ordering Provider Test Date Status SUKI BAXTER 09/02/2023 10:01:16 Final Observation Date Value Abnormality Reference (Units ) Status Glucose, 2-hr post glucose challenge 09/02/2023 10:01:16 154 70-154 (mg/dL) Final Performing Location LABORATORY [facility] 57-1 0 - [address] [place] [address]
--- OUTSIDE RECORDS SUMMARY | 2023-12-03 05:44 | External Medical Summary | Summary of Care ---
Author Name Unknown Organization [facility] Address [address] [place] [address] Phone [phone] Care Team Providers Care Field Care Manager Name Role Phone Ijeoma Kaplan Lela HOLILDAY Primary Care Provider Reason for Visit * Reason Comments Outpatient Testing Encounter Details Date Type Department Care Team (Late st Contact Info) Description 09/02/2023 8:30 AM EST Laboratory Laboratory, [facility] 132 [facility] [place] [address] [facility] [address] [place] [address] Supervision of high-risk , unspecified trimester Allergies No known active allergiesdocumented as of [...] mcgIndications:Vitamin B 12 deficiency 1000 mcg IM [id number] 05/13/2023 04/13/2024 Active documented as of this [...] assessment of proteinuria (24-hour urine protein or hkucalu-oi-epfdckemzd ratio) and CBC, serum AST/ALT/creatinine. If patient [...] assessment of proteinuria (24-hour urine protein or rnvbcyb-lr-skgqomquwf ratio) and CBC, serum AST/ALT/creatinine. If patient [...] incision, unknown uterine incision. Delivered at [facility], OR report in chart. Low transverse uterine [...] LNR-S, Bival ent, PF, 3 mcg/0.2 ml ([employer]) 6m to 4 years 07/26/2022 Covid-19 Ad26, Single Dose ([employer]/J[employer]J) 021 PPD 05/13/2023,06/28/2021,09/08/2017 SEASONAL INFLUENZA, PF, 6 [...] 9:30 AM EST Imaging Maternal Medicine Imaging, [facility] [address] [place] [address] 09/23/2023 9:00 AM EST Office Visit Gynecology/Obstetrics [facility] [address] [place] [address] Cholo Terry MD [address] [place] [address] 10/09/2023 9:30 AM EST Imaging Maternal Medicine Imaging, [facility] [address] [place] [address] Pending Results Name Type Priority Associated Diagnoses Date /Time GESTATIONAL GLUCOSE TOLERANCE, 3 HOUR Lab Routine Supervision of high-risk , unspecified trimester 09/02/2023 8:01 AM EST CBC WITH WBC DIFFERENTIAL AND ANEMIA REFLEX WORKUP Lab Routine Supervision of high-risk , unspecified trimester 09/02/2023 8:01 AM EST SYPHILIS ANTIBODY SCREEN WITH REFLEX TO RPR Lab Routine Supervision of high-risk , unspecified trimester 09/02/2023 8:01 AM EST ANEMIA REFLEX CHEMISTRY HOLD Lab Routine Supervision of high-risk , unspecified trimester 09/02/2023 8:01 AM EST SYPHILIS ANTIBODY SCREEN Lab Routine Supervision of high-risk , unspecified trimester 09/02/2023 8:01 AM EST 100-G GESTATIONAL GLUCOSE, 2 HOUR Lab Routine Supervision of high-risk , unspecified trimester 09/02/2023 10:01 AM EST RETICULOCYTE PANEL Lab Routine Supervision of high-risk , unspecified trimester 09/02/2023 8:01 AM EST 100-G GESTATIONAL GLUCOSE, 3 HOUR Lab Routine Supervision of high-risk , unspecified trimester 09/02/2023 10:54 AM EST Health Maintenance Due Date Last Done Comments Hepatitis B (1 of 3 - 3-dose series) 1985 COVID-19 Vaccine (2 - season) 2023 07/26/2022, 03/30/2021 GFR 05/07/2024 05/07/2023, [...] Procedure Name Priority Date/Time Associated Diagnosis Comments 100-G GESTATIONAL GLUCOSE, 1 HOUR Routine 09/02/2023 9:00 AM EST Supervision of high-risk , unspecified trimester ANEMIA CBC Routine 09/02/2023 8:01 AM EST Supervision of high-risk , unspecified trimester DIFFERENTIAL, AUTOMATED Routine 09/02/2023 8:01 AM EST Supervision of high-risk , unspecified trimester 100-G GESTATIONAL GLUCOSE, FASTING Routine 09/02/2023 8:01 AM EST Supervision of high-risk , unspecified trimester DIFFERENTIAL, TECHNOLOGIST REVIEW Routine 09/02/2023 8:01 AM EST Supervision of high-risk , unspecified trimester documented in this encounter Results * 100-G GESTATIONAL GLUCOSE, 1 HOUR (09/02/2023 9:00 AM EST) 100-g Gestational Glucose, 1 Hour 177 70 - 179 mg/dL 09/02/2023 10:08 AM EST [facility] [place] [facility]-10 Blood Venous blood specimen / Unknown Venipuncture / Unknown 09/02/2023 9:00 AM EST 09/02/2023 9:00 AM EST Mar [facility] [place] 57-10 [address] [place] [address] * DIFFERENTIAL, TECHNOLOGIST REVIEW (09/02/2023 8:01 AM EST) nRBCs 09/02/2023 9:12 AM EST [facility] [place] 57-10 Blood Venous blood specimen / Unknown Venipuncture / Unknown 09/02/2023 8:01 AM EST 09/02/2023 8:01 AM EST Mar [facility] [place] 57-10 [address] [place] [address] * (ABNORMAL) DIFFERENTIAL, AUTOMATED (09/02/2023 8:01 AM EST) WBC 14.82(H) 4.00 - 10.80 K/uL 09/02/2023 9:12 AM EST [facility] [place] [facility]-10 Neutrophils % 75.0 40.0 - 75.0 % 09/02/2023 9:12 AM EST [facility] [place] 57-10 Lymphocytes % 18.1 18.0 - 42.0 % 09/02/2023 9:12 AM EST [facility] [place] 57-10 Monocytes % 5.5 1.0 - 11.0 % 09/02/2023 9:12 AM EST [facility] [place] 57-10 Eosinophils % 1.3 0.0 - 6.0 % 09/02/2023 9:12 AM EST [facility] [place] 57-10 Basophils % 0.1 0.0 - 2.0 % 09/02/2023 9:12 AM EST [facility] [place] 57-10 Absolute Neutrophils 11.11(H) 1.80 - 7.70 K/uL 09/02/2023 9:12 AM EST [facility] [place] 57-10 Absolute Lymphocytes 2.68 1.00 - 4.80 K/ul 09/02/2023 9:12 AM EST [facility] 57-10 Absolute Monocytes 0.81 0.00 - 1.10 K/uL 09/02/2023 9:12 AM EST [facility] [place] 57-10 Absolute Eosinophils 0.20 0.00 - 0.70 K/uL 09/02/2023 9:12 AM EST [facility] [place] 57-10 Absolute Basophils 0.02 0.00 - 0.20 K/uL 09/02/2023 9:12 AM EST [facility] [place] 57-10 Blood Venous blood specimen / Unknown Venipuncture / Unknown 09/02/2023 8:01 AM EST 09/02/2023 8:01 AM EST Mar [facility] [place] [facility]-10 [facility] [place] [address] * (ABNORMAL) ANEMIA CBC (09/02/2023 8:01 AM EST) WBC 14.82(H) 4.00 - 10.80 K/uL 09/02/2023 9:12 AM EST [facility] [place] 57-10 RBC 3.65 3.85 - 5.15 M/uL 09/02/2023 9:12 AM EST LABORATORY [facility] 57-10 HGB 10.7(L) 12.0 - 15.3 g/dL 09/02/2023 9:12 AM EST LABORATORY [facility] 57-10 Comment: Anemia reflex testing triggers on a HGB < 12.0 for Females and HGB < 13.0 for Males in accordance with the WHO Anemia Guidelines Anemia reflex testing triggers on a HGB < 12.0 for Females and HGB < 13.0 for Males in accordance with the WHO Anemia Guidelines HCT 33.0(L) 36.0 - 45.2 % 09/02/2023 9:12 AM EST LABORATORY [place] 5710 MCV 90.4 81.5 - 97.5 fL 09/02/2023 9:12 AM EST LABORATORY [facility] 5710 MCH 29.3 27.0 - 34.0 pg 09/02/2023 9:12 AM EST LABORATORY [address] MCHC 32.4 32.0 - 36.0 g/dL 09/02/2023 9:12 AM EST LABORATORY [place] 5710 RDW 14.6 11.5 - 15.5 % 09/02/2023 9:12 AM EST LABORATORY [facility] 5710 PLT 339 140 - 400 K/uL 09/02/2023 9:12 AM EST LABORATORY [facility] 5710 MPV 9.1 6.6 - 11.1 fL 09/02/2023 9:12 AM EST LABORATORY [place] 5710 Blood Venous blood specimen / Unknown Venipuncture / Unknown 09/02/2023 8:01 AM EST 09/02/2023 8:01 AM EST Mar [facility] LABORATORY [facility] [place] [address] [place] [address] * (ABNORMAL) 100-G GESTATIONAL GLUCOSE, FASTING (09/02/2023 8:01 AM EST) 100-g Gestational Glucose, Fasting 97(H) 70 - 94 mg/dL 09/02/2023 9:18 AM EST [facility] [place] [facility] 57-10 Blood Venous blood specimen / Unknown Venipuncture / Unknown 09/02/2023 8:01 AM EST 09/02/2023 8:01 AM EST Narrative [facility] [place] 57-10 - 09/02/2023 9:18 AM EST Based on ACOG guideline, gestational diabetes mellitus is diagnosed when any of the following is met: Fasting is greater than or equal to 95 mg/dL 1 hour is greater than or equal to 180 mg/dL 2 hour is greater than or equal to 155 mg/dL 3 hour is greater than or equal to 140 mg/dL Mar [facility] [place] 57-10 [address] [facility] [address] documented in this encounter Visit Diagnoses Diagnosis Supervision of high-risk , unspecified trimester documented in this encounter Care Teams Field Care Manager Relationship Specialty Start Date End Date Ijeoma Kaplan DO [address] [facility] [id number] PCP - General Family Medicine 07/22/17 documented as of this encounter
--- OUTSIDE RECORDS SUMMARY | 2023-12-03 05:44 | External Medical Summary | Summary of Care ---
Author Name Unknown Organization [facility] Address [address] [place] [address] Phone [phone] Care Team Providers Care Shake Sawyer Name Role Phone Hebertdung Ijeoma Lela HOLLIDAY Primary Care Provider Encounter Details Date Type Department Care Team (Late st Contact Info) Description 09/18/2023 9:30 AM EST Office Visit Utility Aide Obstetrics Maternal Medicine, [address] [address] Rosa Maria Mortensen [address] [place], [place] [id number] Chronic hypertension in *; Obesity in , [...] mcgIndications:Vitamin B 12 deficiency 1000 mcg IM [id number] 05/13/2023 04/13/2024 Active documented as of this encounter (statuses as of 09/18/2023) Active Problems Problem Noted Date Diagnosed Date Antepartum anemia complicating 023 Overview: Hgb 10.7 at 26 wks, rx for iron Maternal vitamin B12 deficiency 09/03/2023 Overview: Start supplement 26w5d High thyroid stimulating hormone (TSH) level Overview: Ask a Doc sent to [facility] for recommendations, see encounter 09/03. Normal T3/T4 Urinary tract infection in m other during second trimester of 07/08/2023 Overview: +E coli, Keflex sent 18w 4d Neg DONNA at 22 wks History of delivery of macrosomal 023 Overview: 1st baby 9lb 6oz B12 deficiency 05/08/2023 Supervision of high-risk , unspecified trimester 05/07/2023 Overview: [facility] referral Obesity in , antepartum 05/07/2023 Overview: [...] assessment of proteinuria (24-hour urine protein or hnitfdd-ms-gphqqigwhz ratio) and CBC, serum AST/ALT/creatinine. If patient [...] assessment of proteinuria (24-hour urine protein or yiotwid-kf-nnzfdmbirh ratio) and CBC, serum AST/ALT/creatinine. If patient [...] skin incision, unknown uterine incision. Delivered at [facility], [place] report in chart. Low transverse uterine incision noted. AMA (advanced maternal age) multigravida 35+ Overview: Age [address] [facility] Opted out of genetic screening Last Assessment [...] LNR-S, Bival ent, PF, 3 mcg/0.2 ml ([employer]) 6m to 4 years 07/26/2022 Covid-19 Ad26, [...] 09/23/2023 9:00 AM EST Office Visit Gynecology/Obstetrics [facility] [address] [place] [address] Cholo Terry MD [address] [place] [address] 10/16/2023 8:00 AM EST Imaging Maternal Medicine Imaging, [facility] [address] [place] [address] 11/06/2023 9:30 AM EST Imaging Maternal Medicine Imaging, [facility] [address] [place] [address] Health Maintenance Due Date Last Done Comments [...] incidental documented in this encounter Care Teams Shake Sawyer Relationship Specialty Start Date End Date Ijeoma Kaplan DO [address] [place] [address] PCP - General Family Medicine 07/22/17 documented as of this encounter
--- OUTSIDE RECORDS SUMMARY | 2023-12-03 05:45 | External Medical Summary ---
Author Name Unknown Address Unknown Organization K01:LABORATORY C - [address] [address] Laboratory Report Ordering Provider Test Date Status SUKI BAXTER 09/02/2023 08:01:19 Final Observation Date Value Abnormality Reference (Units ) Status Folic Acid 09/02/2023 08:01:19 19.4 >4.5 (ng/ mL) Final Performing Location LAB[facility]ATORY [facility] - [address] [place] [address]
--- OUTSIDE RECORDS SUMMARY | 2023-12-03 05:45 | External Medical Summary ---
Author Name Unknown Address Unknown Organization [id number][facility] [address] [place] [address] Laboratory Report Ordering Provider Test Date Status SUKI BAXTER 09/02/2023 08:01:19 Final Observation Date Value Abnormality Reference (Units ) Status WBC, Total 09/02/2023 08:01:19 14.82 Above high normal 4 .00-10.80 (K/uL) Final RBC 09/02/2023 08:01:19 3.65 3.85-5.15 (M/uL) Final Hemoglobin 09/02/2023 08:01:19 10.7 Below low normal 12 .0-15.3 (g/dL) Final Anemia reflex testing trigge rs on a HGB < 12.0 for Females and HGB < 13.0 for Males in accordance with the WHO Anemia Guidelines
Anemia reflex testing triggers on a HGB < 12.0 for Females and HGB < 13.0 for Males in accordance with the WHO Anemia Guidelines HCT 09/02/2023 08:01:19 33.0 Below low normal 36. 0-45.2 (%) Final MCV 09/02/2023 08:01:19 90.4 81.5-97.5 (fL) Final MCH 09/02/2023 08:01:19 29.3 27.0-34.0 (pg) Final MCHC 09/02/2023 08:01:19 32.4 32.0-36.0 (g/dL) Final RDW 09/02/2023 08:01:19 14.6 11.5-15.5 (%) Final Platelets 09/02/2023 08:01:19 339 140-400 (K /uL) Final MPV 09/02/2023 08:01:19 9.1 6.6-11.1 ( fL) Final Performing Location LABORATORY [facility] 57-1 0 - [address] [place] [address]
--- OUTSIDE RECORDS SUMMARY | 2023-12-03 05:45 | External Medical Summary ---
Author Name Unknown Address Unknown Organization K01:[facility]ORY [facility] [place] Formerly named [facility] [address] [place] [address] Laboratory Report Ordering Provider Test Date Status SUKI BAXTER 09/02/2023 08:01:19 Final Observation Date Value Abnormality Reference (Units ) Status Creatinine 09/02/2023 08:01:19 0.6 0.5-1.0 (mg/dL) Final Glomerular filtration rate/1.73 sq M.predicted [Volume Rate/Area] in Serum, Plasma or Blood by Creatinine-based formula (CKD-EPI) 09/02/2023 08:01:19 >90 >=60 (mL/min) Final eGFR is calculated based on the CKD-EPI 2020 equation Performing Location LAB[facility] [place] [address] [place] [address]
--- OUTSIDE RECORDS SUMMARY | 2023-12-03 05:45 | External Medical Summary ---
Author Name Unknown Address Unknown Organization K01:LABORATORY C - [address] [place] [address] Laboratory Report Ordering Provider Test Date Status SUKI BAXTER 09/02/2023 08:01:19 Final Observation Date Value Abnormality Reference (Units ) Status Vitamin B12 09/02/2023 08:01:19 <150 Below low normal 2 32-1245 (pg/mL) Final Performing Location LAB[facility]ATORY [facility] - [address] [place] [address]
--- OUTSIDE RECORDS SUMMARY | 2023-12-03 05:45 | External Medical Summary ---
Author Name Unknown Address Unknown Organization K0G:LABORATORY [facility]AT[facility]Y 57-[address] - [address] [place] [address] Laboratory Report Ordering Provider Test Date Status SUKI BAXTER 09/02/2023 09:00:42 Final Observation Date Value Abnormality Reference (Units ) Status Glucose [Mass/volume] in Serum or Plasma --1 hour post dose glucose 09/02/2023 09:00:42 177 70-179 (mg/dL) Final Performing Location LABORATORY [facility] 57-[address] 0 - [address] [place] [address]
--- OUTSIDE RECORDS SUMMARY | 2023-12-03 05:45 | External Medical Summary ---
Author Name Unknown Address Unknown Organization K01:LABORATORY C - [address] [place] [address] Laboratory Report Ordering Provider Test Date Status SUKI BAXTER 09/02/2023 08:01:19 Final Observation Date Value Abnormality Reference (Units ) Status TSH 09/02/2023 08:01:19 5.07 Above high normal 0. 27-4.20 (uIU/mL) Final Performing Location LAB[facility] - [address] [place] [address]
--- OUTSIDE RECORDS SUMMARY | 2023-12-03 05:45 | External Medical Summary ---
Author Name Unknown Address Unknown Organization K01:LABORATORY [facility] - [address] [place] [address] Laboratory Report Ordering Provider Test Date Status SUKI BAXTER 09/02/2023 08:01:19 Final Observation Date Value Abnormality Reference (Units ) Status Ferritin 09/02/2023 08:01:19 14 13-150 (ng /mL) Final Performing Location LAB[facility]ATORY [facility] - [address] [place] [address]
--- OUTSIDE RECORDS SUMMARY | 2023-12-03 05:45 | External Medical Summary ---
Author Name Unknown Address Unknown Organization K0G:LABORATORY [facility]ATOLIY 57-[address] - [address] [place] [address] Laboratory Report Ordering Provider Test Date Status SUKI BAXTER 09/02/2023 08:01:19 Final Observation Date Value Abnormality Reference (Units ) Status Nucleated erythrocytes/100 leukocytes [Ratio] in Blood by Automated count 09/02/2023 08:01:19 Final Performing Location LABORATORY [facility] ANAT[facility] 57-[address] 0 - [address] [place] [address]
--- OUTSIDE RECORDS SUMMARY | 2023-12-03 05:45 | External Medical Summary ---
Author Name Unknown Address Unknown Organization K01:LAB[facility]ATORY [facility] - [address] [place] [address] Laboratory Report Ordering Provider Test Date Status SUKI BAXTER 09/02/2023 08:01:19 Final Observation Date Value Abnormality Reference (Units ) Status T4, Free 09/02/2023 08:01:19 1.1 0.9-1.7 (n g/dL) Final Performing Location LAB[facility]ATORY [facility] - [address] [place] [address]
--- OUTSIDE RECORDS SUMMARY | 2023-12-03 05:45 | External Medical Summary ---
Author Name Unknown Address Unknown Organization K01:LABORATORY [facility] [place] - [address] [place] [id number] Laboratory Report Ordering Provider Test Date Status SUKI BAXTER 09/02/2023 08:01:19 Final Observation Date Value Abnormality Reference (Units ) Status Iron 09/02/2023 08:01:19 37 33-151 (ug/dL) Final Iron-binding capacity 09/02/2023 08:01:19 365 250-425 (ug/dL) Final Transferrin Sat % 09/02/2023 08:01:19 10 Below low normal 15-55 (%) Final Performing Location LABORATORY C - [address] [place] [id number]
--- OUTSIDE RECORDS SUMMARY | 2023-12-03 05:45 | External Medical Summary ---
Author Name Unknown Address Unknown Organization K01:LABORATORY [facility] [place] [facility] [place] - [address] [facility] [address] Laboratory Report Ordering Provider Test Date Status SUKI BAXTER 09/02/2023 08:01:19 Final Observation Date Value Abnormality Reference (Units ) Status Retic, % (auto) 09/02/2023 08:01:19 2.20 Above high normal 0.80-1.90 (%) Final Reticulocytes, Absolute 09/02/2023 08:01:19 81.0 31.3-100.1 (K/uL) Final Reticulocyte fraction, immature 09/02/2023 08:01:19 27.0 Above high normal 2.5-20.6 (%) Final Reticulocyte HGB 09/02/2023 08:01:19 33.2 29.7-37.4 (pg) Final Performing Location LABORATORY [facility] [place] - [address] [place] [address]
--- OUTSIDE RECORDS SUMMARY | 2023-12-03 05:45 | External Medical Summary ---
Author Name Unknown Address Unknown Organization K01:LABORATORY C - [address] [place] [address] Laboratory Report Ordering Provider Test Date Status SAHILBACKNAYA 09/02/2023 08:01:19 Final Observation Date Value Abnormality Reference (Units ) Status T3, Free 09/02/2023 08:01:19 3.4 2.5-4.3 (p g/mL) Final Performing Location LAB[facility]ORY [facility] - [address] [place] [address]
--- OUTSIDE RECORDS SUMMARY | 2023-12-03 05:45 | External Medical Summary ---
Author Name Unknown Address Unknown Organization K0G:LABORATORY [facility]AT[facility]Y [address] - [address] [place] [address] Laboratory Report Ordering Provider Test Date Status SUKI BAXTER 09/02/2023 08:01:19 Final Based on ACOG guideline, ges tational diabetes mellitus is diagnosed when any of the following is met:
Fasting is greater than or equal to 95 mg/dL
1 hour is greater than or equal to 180 mg/dL
2 hour is greater than or equal to 155 mg/dL
3 hour is greater than or equal to 140 mg/dL Observation Date Value Abnormality Reference (Units ) Status Glucose, fasting 09/02/2023 08:01:19 97 Above high no rmal 70-94 (mg/dL) Final Performing Location LABORATORY [facility]AT[facility] 57-[address] 0 - [address] [place] [address]
--- OUTSIDE RECORDS SUMMARY | 2023-12-03 05:45 | External Medical Summary ---
Author Name Unknown Address Unknown Organization K0G:LABORATORY [place] [address] - [address] [place] [address] Laboratory Report Ordering Provider Test Date Status SUKI BAXTER 09/02/2023 08:01:19 Final Observation Date Value Abnormality Reference (Units ) Status SYNC LEUKOCYTES IN BLOOD BY AUTOMATED COUNT 09/02/2023 08:01:19 14.82 Above high normal 4.00-10.80 (K/uL) Final Segs 09/02/2023 08:01:19 75.0 40.0-75.0 (%) Final Lymphs % 09/02/2023 08:01:19 18.1 18.0-42.0 (%) Final Monos 09/02/2023 08:01:19 5.5 1.0-11.0 (%) Final Eosinophils 09/02/2023 08:01:19 1.3 0.0-6.0 (%) Final Basos 09/02/2023 08:01:19 0.1 0.0-2.0 (%) Final Absolute Segs 09/02/2023 08:01:19 11.11 Above high normal 1.80-7.70 (K/uL) Final Lymphs, absolute 09/02/2023 08:01:19 2.68 1.00-4.80 (K/ul) Final Monos, Abs 09/02/2023 08:01:19 0.81 0.00-1.10 (K/uL) Final Eos, Abs 09/02/2023 08:01:19 0.20 0.00-0.70 (K/uL) Final Basos, Abs 09/02/2023 08:01:19 0.02 0.00-0.20 (K/uL) Final Performing Location LABORATORY [place] [address] - [address] [place] [address]
[2023-12-03] MEDS: LACTATED RINGER'S 1,000 ML IV SCH (06:00)
[2023-12-03 06:01] LABS: Basophils # (auto) 0.05 K/uL (0.00-0.20); Basophils % (auto) 0.3 %; Eosinophils # (auto) 0.19 K/uL (0.00-0.50); Eosinophils % (auto) 1.3 %; Hematocrit (blood only) 38.8 % (37.0-47.0); Hemoglobin 12.8 g/dl (12.0-16.0); Immature Granulocytes # (auto) 0.11 K/uL (0.01-0.20); Immature Granulocytes % (auto) 0.7 %; Lymphocytes # (auto) 3.73 K/uL (1.20-3.40); Lymphocytes % (auto) 24.8 %; Mean Corpuscular Hemoglobin 29.7 pg (25.0-34.0); Mean Platelet Volume 9.3 fL (9.4-12.4); Monocytes # (auto) 0.93 K/uL (0.11-0.59); Monocytes % (auto) 6.2 %; Neutrophils # (auto) 10.02 K/uL (1.40-6.50); Neutrophils % (auto) 66.7 %; Platelet Count 295 K/uL (130-400); RDW Coefficient of Variation 14.3 % (11.5-14.5); RDW Standard Deviation 46.9 fL (36.4-46.3); Red Blood Count 4.31 M/uL (4.20-5.40); White Blood Count 15.03 K/ul (4.8-10.8)
--- OUTSIDE RECORDS SUMMARY | 2023-12-03 06:04 | External Medical Summary | Summary of Care ---
Author Name Unknown Organization [facility] Address [address] [facility] [place] [address] Phone [phone] Care Team Providers Care Affirmative Action Officer Name Role Phone HebertYinka razodaja Vogel DO Primary Care Provider [phone] Reason for Visit * Reason Comments Leadership Development Consultant Return Encounter Details Date Type Department Care Team (Late st Contact Info) Description 08/14/2023 4:30 PM EDT Office Visit Gynecology/Obstetric s Lillian Kevin [address] [place] [address] Alisha Hirsch PA-C [address] [place] [address] Supervision of high-risk , unspecified trimester*; Obesity in , antepartum; Chronic hypertension in ; H/O section; Multigravida of advanced maternal age in second trimester; History of delivery of macrosomal infant; Urinary tract infection in mother during second trimester of ; Spotting in Allergies No known active allergiesdocumented as of this encounter (statuses as of 08/14/2023) Medications Medication Sig Dispensed Refills Start Date [...] mcgIndications:Vitamin B 12 deficiency 1000 mcg IM [id number] 05/13/2023 04/13/2024 Active documented as of this encounter (statuses as of 08/14/2023) Active Problems Problem Noted Date Diagnosed Date Urinary tract infection in m other during second trimester of 07/08/2023 Overview: +E coli, Keflex sent 18w 4d Neg DONNA at 22 wks History of delivery of macrosomal 023 Overview: 1st baby 9lb 6oz B12 deficiency 05/08/2023 Supervision of high-risk , unspecified trimester 05/07/2023 Overview: [facility] referral Obesity in , antepartum 05/07/2023 [...] assessment of proteinuria (24-hour urine protein or pvvczes-zw-iafoiwjnmx ratio) and CBC, serum AST/ALT/creatinine. If patient [...] assessment of proteinuria (24-hour urine protein or yipsibr-ds-wvjmlqebww ratio) and CBC, serum AST/ALT/creatinine. If patient [...] incision, unknown uterine incision. Delivered at [facility], pt to sign release to obtain operative report from [facility]. AMA (advanced maternal age) multigravida 35+ Overview: [...] as of this encounter (statuses as of 08/14/2023) Resolved Problems Problem Noted Date Diagnosed Date [...] as of this encounter (statuses as of 08/14/2023) Immunizations Name Administration Dates Next Due COVID-19, mRNA, LNR-S, Bival ent, PF, 3 mcg/0.2 ml ([employer]) 6m to 4 years 07/26/2022 Covid-19 Ad26, Single Dose ([email or web address]) 021 PPD 05/13/2023,06/28/2021,09/08/2017 SEASONAL INFLUENZA, PF, 6 [...] Sign Reading Time Taken Comments Blood Pressure 112/68 08/14/2023 12:52 PM EDT Pulse - - Temperature - - Respiratory Rate - - Oxygen Saturation - - Inhaled Oxygen Concentration - - Weight - - Height - - Body Mass Index - - documented in this encounter Progress Notes * Alisha Hirsch PA-C - 08/14/2023 1:37 PM EDT 23w6d Acute visit for vaginal spotting. Pt had intercourse on Friday, started with spotting at first red immediately following. Then brown. Loop not painful, however felt vaginal irritation after.Discharge began to lighten then had slight increase in brown discharge yesterday that made her concerned. Pt showed provider pictures on phone of discharge, no heavy bleeding or bright red bleeding. Pt seen by MFM for ultrasound today and asked to be evaluated today. Per Siri COLE, no abnormalities by ultrasound. SANJAY normal, placenta not low (no concerns for previa). Pt endorses multiple UTIs this treated with antibiotics. Had negative urine culture 08/05/2023. Last ABX mid-June. Declines STI testing, no concerns. Denies LOF, contractions. Pos FM. Retrofit Installer Documentation Provider requested flat surfacer. Name of flat surfacer: DANIEL Mccain Pelvic exam: External genitalia and vagina anatomy within normal limits, No significant vulvar lesions, small amount brown vaginal discharge noted in vagina with clumpy white discharge, vagina appeared irritated, pt uncomfortable and felt vaginal irritated with speculum, anterior lip of cervix visualized and appeared normal, unable to visualize entire portion d/t patient's discomfort. A/P: Vaginosis panel and urine culture collected. Ultrasound through [facility] just today, prelim findings WNL. Final report pending at time of appointment, reviewed OV from [facility] after visit and no concerns noted. Suspect yeast vaginitis given irritation, discomfort and white discharge present in vagina. Has risk factor given on ABX in past month. O positive, RhoGAM not indicated. Recommended pelvic rest x 2 weeks. Monistat OTC. Call with increase in bleeding, contractions, LOF or decreased FM or any concerns. Keep previously scheduled appointment for routine TAD. Alisha Hirsch PA-C documented in this encounter Nursing Notes * Huyen Chisholm RN - 08/14/2023 12:53 PM EDT Patient here for acute TAD due to vaginal spotting after intercourse 5 days ago documented in this encounter Plan of Treatment Upcoming Encounters Date Type Department Care Team (Late st Contact Info) Description 09/02/2023 8:30 AM EST [facility] [address] [place] [phone] KevinMare[address] morales [address] [facility] [place] [address] 09/02/2023 9:00 AM EST Office Visit Gynecology/Obstetrics Lillian Kevin [address] [facility] [place] [address] Nicole Burns CRNP [address] [place] [address] 09/18/2023 9:30 AM EST Imaging [facility], [address] [place] [phone] 10/09/2023 9:30 AM EST Imaging [facility], [address] [place] [phone] Pending Results Name Type Priority Associated Diagnoses Date /Time VAGINOSIS PANEL, PCR Lab Routine Supervision of high-risk , unspecified trimester 08/14/2023 1:15 PM EDT CULTURE, URINE, QUANTITATIVE Lab Routine Spotting in 08/14/2023 1:46 PM EDT Scheduled Orders Name Type Priority Associated Diagnoses Orde r Schedule VAGINOSIS PANEL, PCR Lab Routine Supervision of high-risk , unspecified trimester Expected: 08/14/2023, Expires: 08/14/2024 Health Maintenance Due Date Last Done Comments [...] Comments URINALYSIS, POINT OF CARE (ENTER/EDIT) Routine 08/14/2023 Supervision of high-risk , unspecified trimester documented in this encounter Results * URINALYSIS, POINT OF CARE (ENTER/EDIT) (08/14/2023) Color, Urine Yellow Yellow or Light Yellow Clarity, Urine Clear Clear Glucose, Urine Negative Negative mg/dL Bilirubin, Urine Negative Negative Ketone, Urine Negative Negative mg/dL Specific [place], Urine 1.020 1.003 - 1.030 Blood, Urine Trace-lysed Negative pH, Urine 6.0 5.0 - 7.5 units Protein, Urine Negative Negative mg/dL Urobilinogen, Urine 0.2 0.2 - 1.0 mg/dL Nitrite, Urine Negative Negative Esterase, Urine Negative Negative Urine 08/14/2023 Alisha Hirsch PA-C LAB POINT OF CARE ST ENTER/EDIT ORDERABLES documented in this encounter Visit [...] second trimester History of delivery of macrosomal Urinary tract infection in mother during second trimester of Spotting in Spotting complicating , unspecified as to episode of care or not applicable documented in this encounter Care Teams Affirmative Action Officer Relationship Specialty Start Date End Date Ijeoma Kaplan DO [address] [place] [address] PCP - General Family Medicine 07/22/17 documented as of this encounter
--- OUTSIDE RECORDS SUMMARY | 2023-12-03 06:04 | External Medical Summary ---
Author Name Unknown Address Unknown Organization K01:[facility] [place] [facility] [address] [address] Laboratory Report Ordering Provider Test Date Status YO GARCIA 08/14/2023 13:15:38 Final Observation Date Value Abnormality Reference (Units ) Status Lashonda glabrata DNA [Presence] in Vaginal fluid by ROSY with probe detection 08/14/2023 13:15:38 Negative Negative Final Lashonda glabrata not detecte d by PCR. Lashonda albicans DNA [Presen ce] in Vaginal fluid by ROSY with probe detection 08/14/2023 13:15:38 Negative Negative Final Lashonda albicans not detecte d by PCR. Trichomonas vaginalis DNA [P resence] in Vaginal fluid by ROSY with probe detection 08/14/2023 13:15:38 Negative Negative Final Trichomonas vaginalis not de tected by PCR. Gardnerella vaginalis DNA [P resence] in Vaginal fluid by Probe with signal amplification 08/14/2023 13:15:38 Negative Negative Final Gardnerella vaginalis not de tected by PCR.

This test was developed and its performance characteristics determined by [facility]. It has not been cleared or approved by the U.S. Food and Drug Administration (FDA). FDA does not require this test to go through premarket FDA review. This test is used for clinical purposes. It should not be regarded as investigational or for research. This laboratory is certified under the Clinical Laboratory Improvement Amendments (CLIA) as qualified to perform high complexity clinical laboratory testing.

The validation of self-collected vaginal swabs for this assay was developed and performance characteristics determined by [facility]. The validation of alternate specimen types has not been cleared or approved by the U.S. Food and Drug Administration (FDA). It has been determined that such clearance or approval is not necessary.

null Performing Location LAB[facility]ORY [facility] [place] [address] [facility] [address] [facility] [address]
--- OUTSIDE RECORDS SUMMARY | 2023-12-03 06:04 | External Medical Summary | Summary of Care ---
Author Name Unknown Organization [facility] Address [address] [place] [address] Phone [phone] Care Team Providers Care Reporter Anchor Name Role Phone Ijeoma Kaplan Primary Care Provider Encounter Details Date Type Department Care Team Description 05/08/2023 Telephone Gynecology/Obstetrics [facility] [address] [place] [address] Luisa Fang MD [address] [place] [address] Allergies No known active allergiesdocumented as of this encounter (statuses as of 08/07/2023) Medications Medication Sig Dispensed Refills Start Date [...] Tablet Chewable Take by mouth. 0 Active documented as of this encounter (statuses as of 08/07/2023) Active Problems Problem Noted Date Urinary tract infection in mother during second trimester of 07/08/2023 Overview: +E coli, Keflex sent 18w 4d Neg DONNA at 22 wks History of delivery of macrosomal infant 05/28/2023 Overview: 1st baby 9lb 6oz B12 deficiency 05/08/2023 Supervision of high-risk , unsp ecified trimester 05/07/2023 Overview: MFM referral Obesity in , antepartum 023 Overview: Pregravid BMI 55.64 No results found for: 50-G GESTATIONAL GLUCOSE Early glucose screen ordered; not complete to date Last Assessment & Plan: I reviewed the ultrasound with her. The anatomy that was visualized appears unremarkable the biometry is appropriate for the gestational age. The fetus is in the breech presentation the anatomy that was visualized appears unremarkable. Chronic hypertension in 2022 Overview: Obtain baseline lab work MICHAEL (if not already done) with assessment of proteinuria (24-hour urine protein or wmvgfwz-uu-oooarqcpym ratio) and CBC, serum AST/ALT/creatinine. If patient [...] assessment of proteinuria (24-hour urine protein or nooxurv-fx-jkeskfobio ratio) and CBC, serum AST/ALT/creatinine. If patient [...] incision, unknown uterine incision. Delivered at [facility], pt to sign release to obtain operative report from [facility]. AMA (advanced maternal age) multigravida 35+ 05/07/2023 Overview: Age 38 at [facility] Opted out [...] (BMI) of 50.0 to 59.9 in adult 07/21/2017 Overview: Per Obesity protocol #1 HTN, goal below 140/90 01/21/2017 Anxiety and depression 01/07/2017 Heartburn 01/07/2017 Joint pain 01/07/2017 Migraine with aura and without status mi grainosus, not intractable 01/07/2017 Irritable bowel syndrome with diarrhea 0 01/07/2017 Spasm of muscle 04/07/2007 Urinary frequency 09/03/2006 Tobacco use disorder 09/03/2006 Estimated Date of Delivery Comme nts Yes 12/05/2023 Based on last me nstrual period of 02/28/2023 documented as of this encounter (statuses as of 08/07/2023) Resolved Problems Problem Noted Date Resolved Date Other known or suspected fet al abnormality, not elsewhere classified, affecting management of mother, unspecified as to episode of care 07/26/2008 01/07/2017 Overview: echogenic 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 Backache 04/07/2007 12/05/2020 Morbid obesity, BMI not known 04/07/2007 ACUTE CYSTITIS 09/03/2006 12/15/2008 Overview: Resolved per Benign Acute Dxs Protocol #3 Dysuria 09/03/2006 01/07/2017 ACUTE URI NOS 09/03/2006 12/08/2008 Overview: Resolved per Benign Acute Dxs Protocol #3 Chronic rhinitis 09/03/2006 01/07/2017 documented as of this encounter (statuses as of 08/07/2023) Immunizations Name Administration Dates Next Due COVID-19, mRNA, LNR-S, Bival ent, PF, 3 mcg/0.2 ml (Pfizer) 6m to 4 years 07/26/2022 Covid-19 Ad26, Single Dose (Carla/J&J) 021 PPD 06/28/2021,09/08/2017 SEASONAL INFLUENZA, PF, 6 M & Above, IM , (FLULAVAL or FLUZONE) 06/28/2021,07/22/2017 Seasonal Influenza, Quadrivalent, No Preserve, I M 07/26/2022,07/25/2016 Seasonal Influenza, Split, IIV3, With Preserve, Inj 08/11/2015 TDAP (age 10 and older)(Boostrix) 01/07/2017 documented as of this encounter Social History Tobacco Use Types Packs/Day Years Used Date Smoking Tobacco: Former Cigarettes 0.5 Smokeless Tobacco: Never Comments:10 per day-started age 17 Alcohol Use Standard Drinks/Week Comments Not Currently 0 (1 standard drink = 0.6 oz pure alcohol) rare - several times per year Alcohol Habits Answer Date Recorded How often do you have a drink containing alcohol ? Monthly or less 06/28/2021 How many drinks containing a lcohol do you have on a typical day when you are drinking? Not asked 06/28/2021 How often do you have six or more drinks on one occasion? Not asked 06/28/2021 Food Insecurity Answer Date Recorded Within the past 12 months, y ou worried that your food would run out before you got money to buy more. Never true 05/07/2023 Within the past 12 months, t he food you bought just didn't last and you didn't have money to get more. Never true 05/07/2023 Estimated Date of Delivery Comme nts Yes 12/05/2023 Based on last me nstrual period of 02/28/2023 Sex Assigned at Date Recorded Female 11/03/2019 10:58 AM EST Job Start Date Occupation Industry Not on file Not on file Not on file documented as of this encounter Miscellaneous Notes * Telephone Encounter - Nisha Barlow RN - 05/08/2023 3:01 PM EDT Pt called to let us know that she is bleeding excessively and on her way to the ER. She states thatthe blood is gushing out and running down her legs. Advised to continue to ER. Pt agreeable. documented in this encounter Plan of Treatment Upcoming Encounters Date Type Specialty Care Team Description 08/14/2023 Imaging Radiology 09/02/2023 Laboratory Laboratory [facility] [address] [place] [address] 09/02/2023 Office Visit Gynecology Obstetrics Nicole Burns CRNP [address] [place] [address] 09/18/2023 Imaging Radiology 10/09/2023 Imaging Radiology Health Maintenance Due Date Last Done Comments [...] filedocumented as of this encounter Care Teams Reporter Anchor Relationship Specialty Start Date End Date Ijeoma Kaplan, DO [address] [place] [address] PCP - General Family Medicine 07/22/17 documented as of this encounter
--- OUTSIDE RECORDS SUMMARY | 2023-12-03 06:04 | External Medical Summary | Summary of Care ---
Author Name Unknown Organization [facility] [address] [facility] [address] Phone [phone] Care Team Providers Care Petroleum Inspector Name Role Phone Ijeoma Kaplan Lela HOLLIDAY Primary Care Provider Encounter Details Date Type Department Care Team (Late st Contact Info) Description 08/13/2023 Telephone Gynecology/Obstetrics [facility] [address] [place] [address] Angel Watkins MD [address] [place] [address] Allergies No known active allergiesdocumented as of this encounter (statuses as of 08/15/2023) Medications Medication Sig Dispensed Refills Start Date [...] mcgIndications:Vitamin B 12 deficiency 1000 mcg IM [id number] 05/13/2023 04/13/2024 Active documented as of this encounter (statuses as of 08/15/2023) Active Problems Problem Noted Date Diagnosed Date [...] assessment of proteinuria (24-hour urine protein or zfpvkat-mj-rvhsnexuxn ratio) and CBC, serum AST/ALT/creatinine. If patient [...] assessment of proteinuria (24-hour urine protein or rtqurca-fa-kcamfttwwi ratio) and CBC, serum AST/ALT/creatinine. If patient [...] incision, unknown uterine incision. Delivered at [facility], pt to sign release to obtain operative report from [facility]. AMA (advanced maternal age) multigravida 35+ Overview: Age 38 at [facility] Opted out of genetic screening Last Assessment [...] as of this encounter (statuses as of 08/15/2023) Resolved Problems Problem Noted Date Diagnosed Date [...] as of this encounter (statuses as of 08/15/2023) Immunizations Name Administration Dates Next Due COVID-19, [...] encounter Miscellaneous Notes * Telephone Encounter - Huyen Chisholm RN - 08/15/2023 3:21 PM EDT Patient was evaluated in office yesterday. * Telephone Encounter - Angel Watkins MD - 08/15/2023 9:16 AM EDT Recommend to be seen at office Thanks * Telephone Encounter - Huyen Chisholm RN - 08/13/2023 4:22 PM EDT Patient 23w5d called c/o vaginal bleeding. Is there any pain associated with your bleeding? no Have you had a recent US? no Are you experiencing any vaginal itching, burning, ordor, or other dischage? no Have you had recent intercourse or vaginal exam? Yes Thursday 08/09 Patient states she is having very light pink/brown spotting with wiping. She had intercourse Friday, Friday it started until Friday. It stopped but now has started again. No new/constant pain. States she has some mild round ligament pain but that goes away with position changes and is not new. Patient has a US and appt with [facility] tomorrow. Please advise. documented in this encounter Plan of Treatment Upcoming Encounters Date Type Department Care Team (Late st Contact Info) Description 09/02/2023 8:30 AM EST Laboratory Laboratory, [address] [place] [address] Marely Kevin [place] [address] 09/02/2023 9:00 AM EST Office Visit Gynecology/Obstetrics [address] [place] [address] Nicole Burns CRNP [address] [place] [address] 09/18/2023 9:30 AM EST Imaging Maternal Medicine Imaging, [address] [place] [phone] 10/09/2023 9:30 AM EST Imaging Maternal Medicine Imaging, [address] [place] [phone] Health Maintenance Due Date Last Done Comments Hepatitis B (1 of 3 - 3-dose series) 1985 COVID-19 Vaccine ( - 2022- season) 2023 07/26/2022, 03/30/2021 GFR 05/07/2024 05/07/2023, [...] filedocumented as of this encounter Care Teams Petroleum Inspector Relationship Specialty Start Date End Date Ijeoma Kaplan DO [address] [place] [address] PCP - General Family Medicine 07/22/17 documented as of this encounter
--- OUTSIDE RECORDS SUMMARY | 2023-12-03 06:04 | External Medical Summary ---
Author Name Unknown Address Unknown Organization K01:[facility] - [address] [place] [id number] Laboratory Report Ordering Provider Test Date Status YO GARCIA 08/14/2023 13:46:07 Final Observation Date Value Abnormality Reference (Units) Status Bacteria identified in Specimen by Culture 08/14/2023 13:46:07 No significant growth Final Test: Culture, Urine, Quant itative
Specimen Source: Urine, Clean Catch
Specimen Type: Urine
Specimen Date: 08/14/2023 1:46 PM
Result Date: 08/15/2023 12:21 PM
Result Status: Final result
Resulting Lab: [facility]
[address]
[facility] [address]

CULTURE

No significant growth

null Performing Location [facility] - [address] [facility] [address]
--- OUTSIDE RECORDS SUMMARY | 2023-12-03 06:04 | External Medical Summary | Summary of Care ---
Author Name Unknown Organization [facility] Address [address] [place] [address] Phone [phone] Care Team Providers Care Rn Surgical Pcu Name Role Phone Hebertdung Ijeoma Lela HOLLIDAY Primary Care Provider Encounter Details Date Type Department Care Team (Late st Contact Info) Description 08/14/2023 11:45 AM EDT Office Visit Commercial [facility]ier Obstetrics Maternal Medicine, [facility] [address] [place] [address] Rosa Maria Mortensen DO [address] [place] [address] Chronic hypertension in *; Obesity in , antepartum; 23 weeks gestation of ; Ultrasound for screening for growth restriction Allergies No known active allergiesdocumented as of [...] mcgIndications:Vitamin B 12 deficiency 1000 mcg IM [id number] 05/13/2023 04/13/2024 Active documented as of this [...] assessment of proteinuria (24-hour urine protein or kmbtbzj-fg-bfmlxttvye ratio) and CBC, serum AST/ALT/creatinine. If patient [...] assessment of proteinuria (24-hour urine protein or ijwkhjq-ip-njwfjckxsr ratio) and CBC, serum AST/ALT/creatinine. If patient [...] skin incision, unknown uterine incision. Delivered at [facility], pt to sign release to obtain operative report from [facility]. AMA (advanced maternal age) multigravida 35+ Overview: [...] 4 years 07/26/2022 Covid-19 Ad26, Single Dose (Sovicell/J&J) 021 PPD 05/13/2023,06/28/2021,09/08/2017 SEASONAL INFLUENZA, PF, 6 [...] this encounter Progress Notes * Rosa Maria Keyes DO - 08/14/2023 2:06 PM EDT Dieudonne presented today at 23w6d for an ultrasound for the following indications: Chronic hypertension in Obesity in , antepartum 23 weeks gestation of Ultrasound for screening for growth restriction Ultrasound summary: 23w 6d to complete the anatomy survey as well as assess growth. No evidence of structural abnormalities noted today, however some structures remain suboptimal as above. Normal interval growth with EFW 662 g at 53%. Normal SANJAY. Breech presentation. I reviewed the ultrasound images. [...] with any questions. Rosa Maria Mortensen DO 08/14/2023 2:06 PM documented in this encounter Plan of Treatment Upcoming Encounters Date Type Department Care Team (Late st Contact Info) Description 08/14/2023 4:30 PM EDT Office Visit Gynecology/Obstetric carmen Kevin [address] [place] [address] Alisha Hirsch PA-C [address] [place] [address] Supervision of high-risk , unspecified trimester*; Obesity in , antepartum; Chronic hypertension in ; H/O section; Multigravida of advanced maternal age in second trimester; History of delivery of macrosomal infant; Urinary tract infection in mother during second trimester of ; Spotting in 09/02/2023 8:30 AM EST Laboratory [facility] [address] [place] [phone] Marely Kevin [address] [place] [address] 09/02/2023 9:00 AM EST Office Visit Gynecology/Obstetric s [facility] Kevin [address] [place] [address] Nicole Burns CRNP [address] [place] [address] 09/18/2023 9:30 AM EST Imaging Maternal Medicine Imaging, Arnold Valenzuela [address] [place] [phone] 10/09/2023 9:30 AM EST Imaging Maternal Medicine Imaging, Arnold Deancarmen Val[address] [place] [phone] Health Maintenance Due Date Last Done Comments [...] or the puerperium, antepartum condition or complication 23 weeks gestation of state, incidental Ultrasound for screening for growth restriction screening for growth retardation using ultrasonics Supervision of high-risk , unspecified trimester- Primary [...] applicable documented in this encounter Care Teams Rn Surgical Pcu Relationship Specialty Start Date End Date Ijeoma Kaplan DO [address] [place] [address] PCP - General Family Medicine 07/22/17 documented as of this encounter
--- OUTSIDE RECORDS SUMMARY | 2023-12-03 06:04 | External Medical Summary | Summary of Care ---
Author Name Unknown Organization [facility] Address [address] [place] [address] Phone [phone] Care Team Providers Care Brand Advisor Name Role Phone Hebertdung Ijeoma Lela HOLLIDAY Primary Care Provider Encounter Details Date Type Department Care Team (Late st Contact Info) Description 08/14/2023 11:45 AM EDT Office Visit Fitting Room Attendant Obstetrics Maternal Medicine, [facility] [address] [place] [address] Rosa Maria Mortensen DO [address] [place] [address] Chronic hypertension in *; Obesity [...] mcgIndications:Vitamin B 12 deficiency 1000 mcg IM [id number] 05/13/2023 04/13/2024 Active documented as of this [...] assessment of proteinuria (24-hour urine protein or wcluler-oc-fguejvcvxq ratio) and CBC, serum AST/ALT/creatinine. If patient [...] assessment of proteinuria (24-hour urine protein or puadubx-xg-anvgspcxti ratio) and CBC, serum AST/ALT/creatinine. If patient [...] at [facility], pt to sign release to obtain operative report from [facility]. AMA (advanced maternal age) multigravida 35+ Overview: [...] 4 years 07/26/2022 Covid-19 Ad26, Single Dose (Predect/J&J) 021 PPD 05/13/2023,06/28/2021,09/08/2017 SEASONAL INFLUENZA, PF, 6 [...] Visit Gynecology/Obstetric carmen Kevin [address] [place] [address] Alisha Hirsch PA-C [address] [place] [address] Supervision of high-risk , unspecified trimester*; Obesity in , antepartum; Chronic hypertension in ; H/O section; AMA (advanced maternal age) multigravida 35+; History of delivery of macrosomal infant; Urinary tract infection in mother during second trimester of ; Spotting in 09/02/2023 8:30 AM EST [facility] [address] [place] [phone] Marely Kevin [address] [place] [address] 09/02/2023 9:00 AM EST Office Visit Gynecology/Obstetric s Lillian Herberth [address] [place] [address] Nicloe Burns CRNP [address] [place] [address] 09/18/2023 9:30 AM EST Imaging Maternal Medicine Imaging, Arnold [facility]th Valenz[address] [place] [phone] 10/09/2023 9:30 AM EST Imaging Maternal Medicine Imaging, Arnold [facility] [address] [place] [phone] Health Maintenance Due Date Last Done Comments [...] of care H/O section Other postprocedural status AMA (advanced maternal age) multigravida 35+ Elderly multigravida unspecified as to episode of care or not applicable History of delivery of macrosomal Urinary tract infection in mother during second trimester of Spotting in Spotting complicating , unspecified as to episode of care or not applicable documented in this encounter Care Teams Brand Advisor Relationship Specialty Start Date End Date Ijeoma Kaplan DO [address] [place] [address] PCP - General Family Medicine 07/22/17 documented as of this encounter
--- OUTSIDE RECORDS SUMMARY | 2023-12-03 06:04 | External Medical Summary | Summary of Care ---
Author Name Unknown Organization [facility] Address [address] [facility] [place] [address] Phone [phone] Care Team Providers Care A R Collections Rep Name Role Phone HebertIjeoma razo Lela HOLLIDAY Primary Care Provider Reason for Visit * Reason Comments Return Visit Encounter Details Date Type Department Care Team Description 08/05/2023 Office Visit Gynecology/Obstetrics [facility] [place] [address] Mar Rhoades CRNP [address] [place] [address] Supervision of high-risk , unspecified trimester*; Obesity in , antepartum; Chronic hypertension in ; H/O section; Multigravida of advanced maternal age in second trimester; History of delivery of macrosomal infant; Urinary tract infection in mother during second trimester of ; Need for influenza vaccination Allergies No known active allergiesdocumented as of this encounter (statuses as of 08/05/2023) Medications Medication Sig Dispensed Refills Start Date End Date Status valACYclovir HCl 1 GM Oral Tablet (Valtrex)Indicati ons:Recurrent cold sores Take 2 Tablets by mouth [...] Tablet Chewable Take by mouth. 0 Active Cefdinir 300 MG Oral Capsule (Omnicef) 1 Capsule. 0 05/08/2023 08/05/2023 Discontinued (Medication List Clean Up) Cephalexin 500 MG Oral Capsule (Keflex)Indicatio ns:Urinary tract infection in mother during second trimester of Take 1 Capsule by mouth in the morning and 1 Capsule at noon and 1 Capsule in the evening and 1 Capsule before bedtime. Do all this for 10 days. Until gone.. 40 Capsule 0 07/08/2023 08/05/2023 Discontinued (Medication List Clean Up) Hospital, Clinic, or Other Facility Administered Medication Ordered Dose Route Frequency Start Date End Date Status vitamin b-12 (Cyanocobalamin) inj 1,000 mcgIndications:Vitamin B 12 deficiency 1000 mcg IM [id number] 05/13/2023 04/13/2024 Active documented as of this encounter (statuses as of 08/05/2023) Active Problems Problem Noted Date Urinary tract infection in mother during second trimester of 07/08/2023 Overview: +E coli, Keflex sent 18w 4d History of delivery of macrosomal 05/28/2023 Overview: 1st baby 9lb 6oz B12 deficiency 05/08/2023 Supervision of high-risk , unsp ecified trimester 05/07/2023 Overview: M referral Obesity in , antepartum 023 Overview: [...] assessment of proteinuria (24-hour urine protein or qxiityh-wu-smkagyxuhn ratio) and CBC, serum AST/ALT/creatinine. If patient [...] assessment of proteinuria (24-hour urine protein or vonhzal-bf-tswttzifxs ratio) and CBC, serum AST/ALT/creatinine. If patient [...] unknown uterine incision. Delivered at [facility], pt to sign release to obtain operative report from [facility]. AMA (advanced maternal age) multigravida 35+ 05/07/2023 Overview: Age 38 at [facility] Opted out of genetic screening [...] as of this encounter (statuses as of 08/05/2023) Resolved Problems Problem Noted Date Resolved Date [...] as of this encounter (statuses as of 08/05/2023) Immunizations Name Administration Dates Next Due COVID-19, mRNA, LNR-S, Bival ent, PF, 3 mcg/0.2 ml (Forsitec) 6m to 4 years 07/26/2022 Covid-19 Ad26, [...] Sign Reading Time Taken Comments Blood Pressure 134/78 08/05/2023 11:45 AM EDT Pulse - - Temperature - - Respiratory Rate - - Oxygen Saturation - - Inhaled Oxygen Concentration - - Weight 147.7 kg (325 lb 9.6 oz) 023 11:45 AM EDT Height 160 cm (5' 3") 08/05/2023 11:45 AM EDT Body Mass Index 57.68 08/05/2023 11:45 AM EDT documented in this encounter Progress Notes * EDNA Chen - 08/05/2023 11:52 AM EDT 22w4d + movement. No ctx, bleeding. Some pelvic pain w/movement - encouraged to use a belly band, Tylenol prn. BP normal. Anatomy scan completed with [facility], has follow up growth scans scheduled. Having a girl. Repeat urine culture. Labs ordered for next visit, including 3 hr glucose. Flu shot today. 4 week return EDNA Elizabeth * Faiza Michel LPN - 08/05/2023 11:50 AM EDT 22w4d Denies vaginal bleeding/rom + movement Round ligament pain/pelvic pain/pressure when on feet a lot- does resolved with rest. documented in this encounter Nursing Notes * Faiza Michel LPN - 08/05/2023 12:08 PM EDT Patient here for flu injection. Patient doing well no complaints. Injection given IM as ordered. Patient tolerated well. Patient to follow up as directed. Patient instructed to call if any complications. Patient verbalized understanding of instructions given. Injection site: Left Deltoid Medication Source: Dispensed stock medication documented in this encounter Plan of Treatment Upcoming Encounters Date Type Specialty Care Team Description 08/14/2023 Imaging Radiology 09/02/2023 Laboratory Laboratory [facility] [address] [place] [address] 09/02/2023 Office Visit Gynecology Obstetrics Nicole Burns CRNP [address] [place] [address] 09/18/2023 Office Visit Maternal Medicine Rosa Maria Mortensen, DO [address] [place] [address] 09/18/2023 Imaging Radiology 10/09/2023 Imaging Radiology Pending Results Name Type Priority Associated Diagnoses Date /Time CULTURE, URINE, QUANTITATIVE Lab Routine Urinary tract infection in mother during second trimester of 08/05/2023 12:09 PM EDT Scheduled Orders Name Type Priority Associated Diagnoses Orde r Schedule GESTATIONAL GLUCOSE TOLERANCE, 3 HOUR Lab Routine Supervision of high-risk , unspecified trimester Expected: 09/05/2023 (Approximate), Expires: 08/05/2024 CBC WITH WBC DIFFERENTIAL AND ANEMIA REFLEX WORKUP Lab Routine Supervision of high-risk , unspecified trimester Expected: 09/05/2023 (Approximate), Expires: 08/05/2024 SYPHILIS ANTIBODY SCREEN WITH REFLEX TO RPR Lab Routine Supervision of high-risk , unspecified trimester Expected: 09/05/2023 (Approximate), Expires: 08/05/2024 Health Maintenance Due Date Last Done Comments Hepatitis B (1 of 3 - 3-dose series) 1985 COVID-19 Vaccine (2 - 2022- season) 2023 07/26/2022, 03/30/2021 GFR [...] infection in mother during second trimester of Need for influenza vaccination Need for prophylactic vaccination and inoculation against influenza documented in this encounter Care Teams A R Collections Rep Relationship Specialty Start Date End Date Ijeoma Kaplan, DO [address] [place] [address] PCP - General Family Medicine 07/22/17 documented as of this encounter
--- OUTSIDE RECORDS SUMMARY | 2023-12-03 06:05 | External Medical Summary ---
Author Name Unknown Address Unknown Organization [id number]:LABORATORY [facility] 57-[address] - [address] [place] [address] Laboratory Report Ordering Provider Test Date Status WOLF MCCARTNEY 06/11/2023 11:06:22 Final Observation Date Value Abnormality Reference (Units ) Status Glucose [Mass/volume] in Serum or Plasma --3 hours post dose glucose 06/11/2023 11:06:22 69 Below low normal 70-139 (mg/dL) Final Performing Location LABORATORY [facility] 57-1 0 - [address] [place] [address]
--- OUTSIDE RECORDS SUMMARY | 2023-12-03 06:05 | External Medical Summary ---
Author Name Unknown Address Unknown Organization [id number]:[facility] [place] [address] [place] [id number] Laboratory Report Ordering Provider Test Date Status SUKI BAXTER 08/05/2023 12:09:02 Final Observation Date Value Abnormality Reference (Units) Status Bacteria identified in Specimen by Culture 08/05/2023 12:09:02 No significant growth Final Test: Culture, Urine, Quant itative
Specimen Source: Urine, Clean Catch
Specimen Type: Urine
Specimen Date: 08/05/2023 12:09 PM
Result Date: 08/06/2023 2:19 PM
Result Status: Final result
Resulting Lab: [facility]
[address]
[facility] [address]

CULTURE

No significant growth

null Performing Location LAB[facility]ORY [facility] [place] [place] [address] [facility] [address]
--- OUTSIDE RECORDS SUMMARY | 2023-12-03 06:05 | External Medical Summary ---
Author Name Unknown Address Unknown Organization [id number]:[facility] [place] [address] [facility] [address] Laboratory Report Ordering Provider Test Date Status VALENCIA METCALF 07/01/2023 16:19:52 Final <10,000 colonies/ml mixed no rmal franklyn Observation Date Value Abnormality Reference (Units ) Status Bacteria identified in Specimen by Culture 07/01/2023 16:19:52 [id number]^ESCHE RICHIA COLI Abnormal Final 10,000 to 100,000 colonies/m L Escherichia coli Performing Location [facility] [place] [facility] [address] [facility] [address] Ordering Provider Test Date Status VALENCIA METCALF 07/01/2023 16:19:52 Final Observation Date Value Abnormality Reference (Units ) Status Ampicillin 07/01/2023 16:19:52 4 Susceptible Final Cefazolin 07/01/2023 16:19:52 <=4 Susceptible Final Cefepime susceptibility 07/01/2023 16:19:52 <=1 Susceptible Final Ceftriaxone suceptibility 07/01/2023 16:19:52 <=1 Susceptible Final Ciprofloxacin 07/01/2023 16:19:52 <=0.25 Susceptible Final Due to serious side effects, the FDA has advised against using Ciprofloxacin to treat uncomplicated UTIs and respiratory tract infections unless there are no alternative treatment options. Gentamicin susceptibility 07/01/2023 16:19:52 <=1 Susc eptible Final Nitrofurantoin susceptibility 07/01/2023 16:19:52 <=16 Susceptible Final Piperacillin + Tazobactamsusceptibility 07/01/2023 16:19:52 <=4 Susceptible Final TMP-SMZ susceptibility 07/01/2023 16:19:52 <=20 Suscept ible Final Test: Culture, Urine, Quanti tative
Specimen Source: Urine, Clean Catch
Specimen Type: Urine
Specimen Date: 07/01/2023 4:19 PM
Result Date: 07/03/2023 11:45 AM
Result Status: Final result
Abnormal: Yes
Resulting Lab: [facility]
[address] [facility] [address]
[facility] [address]

CULTURE

10,000 to 100,000 colonies/mL Escherichia coli (Abnormal)

<10,000 colonies/ml mixed normal franklyn

SUSCEPTIBILITY

Escherichia coli
METHOD MICROBROTH DILUTIONS

AMPICILLIN 4 Susceptible
CEFAZOLIN <=4 Susceptible
CEFEPIME <=1 Susceptible
CEFTRIAXONE <=1 Susceptible
CIPROFLOXACIN <=0.25 Susceptible [1]
GENTAMICIN <=1 Susceptible
NITROFURANTOIN <=16 Susceptible
PIPERACILLIN TAZOBACTAM <=4 Susceptible
TRIMETH/SULFAMETHOXAZOLE <=20 Susceptible

[1] Due to serious side effects, the FDA has advised against using
Ciprofloxacin to treat uncomplicated UTIs and respiratory tract infections
unless there are no alternative treatment options.

null Performing Location LAB[facility]ORY [facility] [place] - [address] [facility] [address]
--- OUTSIDE RECORDS SUMMARY | 2023-12-03 06:05 | External Medical Summary ---
Author Name Unknown Address Unknown Organization [id number]:LABORATORY [facility] [address] - [address] [place] [address] Laboratory Report Ordering Provider Test Date Status WOLF MCCARTNEY 06/11/2023 10:06:26 Final Observation Date Value Abnormality Reference (Units ) Status Glucose, 2-hr post glucose challenge 06/11/2023 10:06:26 135 70-154 (mg/dL) Final Performing Location LABORATORY [facility] 57-[address] 0 - [address] [place] [address]
--- OUTSIDE RECORDS SUMMARY | 2023-12-03 06:05 | External Medical Summary | Summary of Care ---
Author Name Unknown Organization [facility] Address [address] [facility] [address] Phone [phone] Care Team Providers Care Boatswain Mate Name Role Phone JosueIjeoma mistry Lela HOLLIDAY Primary Care Provider [phone] Reason for Visit * Reason Onset Date Comments Abnormal Test Results 06/10/2023 Encounter Details Date Type Department Care Team Description 06/10/2023 Telephone [facility] [address] [place] [address] Nicole Burns CRNP [address] [facility], [place] [id number] Abnormal Test Results Allergies No known active allergiesdocumented as of this encounter (statuses as of 07/28/2023) Medications Medication Sig Dispensed Refills Start Date [...] Oral Capsule (Omnicef) 1 Capsule. 0 05/08/2023 Active Hospital, Clinic, or Other Facility Administered Medication Ordered Dose Route Frequency Start Date End Date Status vitamin b-12 (Cyanocobalamin) inj 1,000 mcgIndications:Vitamin B 12 deficiency 1000 mcg IM [id number] 05/13/2023 04/13/2024 Active documented as of this encounter (statuses as of 07/28/2023) Active Problems Problem Noted Date Urinary tract infection in mother during second trimester of 07/08/2023 Overview: +E coli, Keflex sent 18w 4d History of delivery of macrosomal infant 05/28/2023 [...] assessment of proteinuria (24-hour urine protein or whutgtt-yw-lcqwyshwqs ratio) and CBC, serum AST/ALT/creatinine. If patient [...] assessment of proteinuria (24-hour urine protein or uekafjk-wl-lbgrewcfua ratio) and CBC, serum AST/ALT/creatinine. If patient [...] skin incision, unknown uterine incision. Delivered at [facility], pt to sign release to obtain operative report from [facility]. AMA (advanced maternal age) multigravida 35+ 05/07/2023 [...] as of this encounter (statuses as of 07/28/2023) Resolved Problems Problem Noted Date Resolved Date [...] as of this encounter (statuses as of 07/28/2023) Immunizations Name Administration Dates Next Due COVID-19, mRNA, LNR-S, Bival ent, PF, 3 mcg/0.2 ml (BeVocal) 6m to 4 years 07/26/2022 Covid-19 Ad26, Single Dose (Carla/J&J) 021 PPD 05/13/2023,06/28/2021,09/08/2017 SEASONAL INFLUENZA, PF, 6 M & Above, IM , (FLULAVAL or FLUZONE) 06/28/2021,07/22/2017 Seasonal Influenza, Quadriva lent, No Preserve, IM [...] encounter Miscellaneous Notes * Telephone Encounter - TRELL Newell - 06/10/2023 10:42 AM EDT Apt scheduled; pt aware * Telephone Encounter - Lorenza Gaitan LPN - 06/10/2023 9:30 AM EDT Patient notified of abnormal glucola. The order has been placed in epic. Patient. advised to be NPO after 10pm the night before the test.The patient must stay on the premises for the entire time of the test. Patient counseled to take something to eat for after testing. Please call patient to schedule testing. * Telephone Encounter - EDNA Shanks - 06/10/2023 9:09 AM EDT Please notify pt that glucola elevated (168). Needs 3hr GTT. Orders placed. documented in this encounter Plan of Treatment Upcoming Encounters Date Type Specialty Care Team Description 08/05/2023 Office Visit Gynecology Obstetrics Backer, EDNA Cisneros [address] [place] [address] 08/14/2023 Imaging Radiology 09/18/2023 Office Visit Maternal Medicine Rosa Maria Mortensen, DO [address] [facility] [place] [address] 09/18/2023 Imaging Radiology 10/09/2023 Imaging Radiology Health Maintenance Due Date Last Done Comments Hepatitis B (1 of 3 - 3-dose series) 1985 COVID-19 Vaccine ( season) 2023 07/26/2022, 03/30/2021 Influenza Vaccine (FLU shot) (#1) 2023 07/26/2022, 06/28/2021, 07/22/2017, Additional history exists GFR 05/07/2024 05/07/2023, 10/20, 01/07/2017, Additional history exists Depression Screening 05/13/2024 05/13/2023 Diabetes Screening 05/07/2026 05/07/2023, 0 05/07/2023, 11/03/2019, Additional history exists Pap Smear 05/07/2026 05/07/2023, 10/20, 02/14/2009 (Done elsewhere) DTaP,Tdap,and Td Vaccines (2 - Td or Tdap) 01/07/2027 01/07/2017 Cervical Cancer Screening 05/07/2028 HPV/Co-Test 05/07/2028 05/07/2023 GARDASIL-HPV IMMUNIZATION SERIES Aged Out No longer [...] as of this encounter Visit Diagnoses Diagnosis Abnormal glucose tolerance in mother complicating - Primary Abnormal maternal glucose tolerance, complicating , childbirth, or the puerperium, unspecified as to episode of care documented in this encounter Care Teams Boatswain Mate Relationship Specialty Start Date End Date Ijeoma Kaplan DO [address] [place] [address] PCP - General Family Medicine 07/22/17 documented as of this encounter
--- OUTSIDE RECORDS SUMMARY | 2023-12-03 06:05 | External Medical Summary | Summary of Care ---
Author Name Unknown Organization [facility] Address [address] [facility] [place] [address] Phone [phone] Care Team Providers Care Stitch Rubber Name Role Phone HebertIjeoma razo Lela HOLLIDAY Primary Care Provider [phone] Reason for Visit * Reason Comments Return Visit Encounter Details Date Type Department Care Team Description 08/05/2023 Office Visit [facility] [place] [address] Mar Rhoades CRNP [address] [place] [address] Supervision of high-risk , unspecified trimester*; Obesity [...] mcgIndications:Vitamin B 12 deficiency 1000 mcg IM [id number] 05/13/2023 04/13/2024 Active documented as of this [...] assessment of proteinuria (24-hour urine protein or bahecaz-og-diqzlmsbcu ratio) and CBC, serum AST/ALT/creatinine. If patient [...] assessment of proteinuria (24-hour urine protein or vxjmhoc-zs-dknmjvzmlr ratio) and CBC, serum AST/ALT/creatinine. If patient [...] skin incision, unknown uterine incision. Delivered at [facility], pt to sign release to obtain operative report from [facility]. AMA (advanced maternal age) multigravida 35+ 05/07/2023 Overview: Age 38 at [facility] Opted out of genetic screening Last Assessment [...] LNR-S, Bival ent, PF, 3 mcg/0.2 ml (Dubaki) 6m to 4 years 07/26/2022 Covid-19 Ad26, [...] prn. BP normal. Anatomy scan completed with [facility], has follow up growth scans scheduled. Having [...] 09/02/2023 Laboratory Laboratory [facility] [address] [place] [address] 09/02/2023 Office Visit Gynecology Obstetrics Nicole Burns CRNP [address] [place] [address] 09/18/2023 Office Visit Maternal Medicine Rosa Maria Mortensen, DO [address] [place] [address] 09/18/2023 Imaging Radiology 10/09/2023 Imaging Radiology Pending [...] influenza documented in this encounter Care Teams Stitch Rubber Relationship Specialty Start Date End Date Ijeoma Kaplan, DO [address] [place] [address] PCP - General Family Medicine 07/22/17 documented as of this encounter
--- OUTSIDE RECORDS SUMMARY | 2023-12-03 06:05 | External Medical Summary | Summary of Care ---
Author Name Unknown Organization [facility] Address [address] [place] [address] Phone [phone] Care Team Providers Care Pull Tab Dealer Name Role Phone Ijeoma Kaplan Lela HOLLIDAY Primary Care Provider Encounter Details Date Type Department Care Team Description 07/16/2023 Office Visit Project Architect Obstetrics Maternal Medicine, [place] [address] [place] [address] Robbie Parra MD [address] [place] [address] Body mass index (BMI) of 50.0 to 59.9 in adult (HCC)*; Obesity in , antepartum; Chronic hypertension in ; Multigravida of advanced maternal age in second trimester Allergies No known active allergiesdocumented as of this encounter (statuses as of 07/16/2023) Medications Medication Sig Dispensed Refills Start Date End Date Status valACYclovir HCl 1 GM Oral Tablet (Valtrex)Indication s:Recurrent cold sores Take 2 Tablets by mouth [...] Capsule (Omnicef) 1 Capsule. 0 05/08/2023 Active Cephalexin 500 MG Oral Capsule (Keflex)Indications :Urinary tract infection in mother during second trimester of Take 1 Capsule by mouth in the morning and 1 Capsule at noon and 1 Capsule in the evening and 1 Capsule before bedtime. Do all this for 10 days. Until gone.. 40 Capsule 0 07/08/2023 07/18/2023 Active Hospital, Clinic, or Other Facility Administered Medication Ordered Dose Route Frequency Start Date End Date Status vitamin b-12 (Cyanocobalamin) inj 1,000 mcgIndications:Vitamin B 12 deficiency 1000 mcg IM [id number] 05/13/2023 04/13/2024 Active documented as of this encounter (statuses as of 07/16/2023) Active Problems Problem Noted Date Urinary tract [...] assessment of proteinuria (24-hour urine protein or lzzqqoh-wf-zapipxzjej ratio) and CBC, serum AST/ALT/creatinine. If patient [...] assessment of proteinuria (24-hour urine protein or wqaobll-ap-hosrfcdhvq ratio) and CBC, serum AST/ALT/creatinine. If patient [...] skin incision, unknown uterine incision. Delivered at [facility], pt to sign release to obtain operative report from [facility]. AMA (advanced maternal age) multigravida 35+ 05/07/2023 [...] as of this encounter (statuses as of 07/16/2023) Resolved Problems Problem Noted Date Resolved Date [...] as of this encounter (statuses as of 07/16/2023) Immunizations Name Administration Dates Next Due COVID-19, mRNA, LNR-S, Bival ent, PF, 3 mcg/0.2 ml ([employer]) 6m to 4 years 07/26/2022 Covid-19 Ad26, Single Dose ([employer]/J&J) 021 PPD 05/13/2023,06/28/2021,09/08/2017 Seasonal Influenza, PF, 6 mo ns & Above, IM , (Flulaval) 06/28/2021,07/22/2017 Seasonal Influenza, Quadriva lent, No Preserve, [...] Sign Reading Time Taken Comments Blood Pressure 134/63 07/16/2023 1:32 PM EDT Pulse - - Temperature - - Respiratory Rate - - Oxygen Saturation - - Inhaled Oxygen Concentration - - Weight - - Height - - Body Mass Index - - documented in this encounter Progress Notes * Robbie Parra MD - 07/16/2023 12:15 PM EDT MATERNAL MEDICINE VISIT Dieudonne Beth is at 19w5d who presents to [facility] for an ultrasound and follow-up of her high risk . The patient is currently 19 weeks and 5 days gestation with class 3 obesity, chronic hypertension on labetalol and advanced maternal age. She comes in for evaluation anatomy. She is being seen today by Maternal- Medicine for the following reasons: Problem List Items Addressed This Visit Body mass index (BMI) of 50.0 to 59.9 in adult (HCC) - Primary (Chronic) Obesity in , antepartum I reviewed the ultrasound with her. The anatomy that was visualized appears unremarkable the biometry is appropriate for the gestational age. The fetus is in the breech presentation the anatomy that was visualized appears unremarkable. Chronic hypertension in AMA (advanced maternal age) multigravida 35+ We reviewed today's ultrasound findings. (For full report, please refer to ultrasound report provided separately). Ms. Beth's questions were answered to her satisfaction. Ms. Beth was instructed to notify her primary house manager if she felt regular contractions (approximately every 10 mins), leaking of fluid, vaginal bleeding or if movement decreased. RECOMMENDATIONS: Recommend surveillance starting at 32 weeks secondary to chronic hypertension on medication. Recommend follow up ultrasound with MFM in 4 weeks for growth secondary to class 3 obesity and chronic hypertension on medication. Thank you for allowing us to participate in the care of this patient. Please call with any questions. Robbie Parra MD 07/16/2023 12:15 PM documented in this encounter Miscellaneous Notes * Assessment & Plan Note - Robbie Parra MD - 07/16/2023 1:31 PM EDT Associated Problem(s): Obesity in , antepartum I reviewed the ultrasound with her. The anatomy that was visualized appears unremarkable the biometry is appropriate for the gestational age. The fetus is in the breech presentation the anatomy that was visualized appears unremarkable. documented in this encounter Plan of Treatment Upcoming Encounters Date Type Specialty Care Team Description 08/05/2023 Office Visit Gynecology Obstetrics Backer, EDNA Cisneros [address] [place] [address] Scheduled Orders Name Type Priority Associated Diagnoses Orde r Schedule MFM US PREG FOLLOW UP EACH FETUS Medical Imaging Routine Body mass index (BMI) of 50.0 to 59.9 in adult (HCC) Obesity in , antepartum Chronic hypertension in Multigravida of advanced maternal age in second trimester 9 Occurrences starting 07/16/2023 until 01/14/2024 Health Maintenance Due Date Last Done Comments Hepatitis B (1 of 3 - 3-dose series) 1985 COVID-19 Vaccine (2 - Booster for Carla series) 07/26/2022 07/26/2022, 03/30/2021 Influenza Vaccine (FLU shot) (#1) [...] as of this encounter Visit Diagnoses Diagnosis Body mass index (BMI) of 50.0 to 59.9 in adult (HCC)- Primary Obesity in , antepartum Obesity complicating , childbirth, or the puerperium, antepartum condition or complication Chronic hypertension in Benign essential hypertension complicating , childbirth, and the puerperium, unspecified as to episode of care Multigravida of advanced maternal age in second trimester documented in this encounter Care Teams Pull Tab Dealer Relationship Specialty Start Date End Date Ijeoma Kaplan DO [address] [place] [address] PCP - General Family Medicine 07/22/17 documented as of this encounter
--- OUTSIDE RECORDS SUMMARY | 2023-12-03 06:05 | External Medical Summary ---
Author Name Unknown Address Unknown Organization K0G[facility] - [address] [place] [address] Laboratory Report Ordering Provider Test Date Status WOLF MCCARTNEY 06/11/2023 08:02:59 Final Based on ACOG guideline, ges tational [...] Abnormality Reference (Units ) Status Glucose, fasting 06/11/2023 08:02:59 86 70- 94 (mg/dL) Final Performing Location [facility] - [address] [place] [address]
--- OUTSIDE RECORDS SUMMARY | 2023-12-03 06:05 | External Medical Summary | Summary of Care ---
Author Name Unknown Organization [facility] Address [address] [place] [address] Phone [phone] Care Team Providers Care Shoe Stainer Name Role Phone Ijeoma Kaplan Lela HOLLIDAY Primary Care Provider Encounter Details Date Type Department Care Team Description 07/16/2023 Office Visit Patient Observation Assistant Obstetrics Maternal Medicine, [place] [address] [place] [address] Robbie Parra MD [address] [place] [address] Body mass index (BMI) of [...] mcgIndications:Vitamin B 12 deficiency 1000 mcg IM [id number] 05/13/2023 04/13/2024 Active documented as of this [...] assessment of proteinuria (24-hour urine protein or wyyxfbi-fx-awsdktzcpi ratio) and CBC, serum AST/ALT/creatinine. If patient [...] assessment of proteinuria (24-hour urine protein or wfsjwbg-qo-gqcsxkxqcb ratio) and CBC, serum AST/ALT/creatinine. If patient [...] incision. Delivered at [facility], pt to sign release to obtain operative report from [facility]. AMA (advanced maternal age) multigravida [...] LNR-S, Bival ent, PF, 3 mcg/0.2 ml ([employer]) 6m to 4 years 07/26/2022 Covid-19 Ad26, Single Dose ([employer]/J&J) 021 PPD 05/13/2023,06/28/2021,09/08/2017 Seasonal Influenza, PF, 6 [...] Beth is at 19w5d who presents to [facility] for an ultrasound and follow-up of [...] Beth was instructed to notify her primary president ceo & founder if she felt regular contractions (approximately every [...] Gynecology Obstetrics Backer[facility]os [address] [facility] [address] 08/14/2023 Imaging Radiology 09/18/2023 Office Visit Maternal Medicine Rosa Maria Mortensen, DO [address] [place] [address] 09/18/2023 Imaging Radiology 10/09/2023 Imaging Radiology Scheduled Orders Name Type Priority Associated Diagnoses [...] trimester documented in this encounter Care Teams Shoe Stainer Relationship Specialty Start Date End Date Ijeoma Kaplan, [address] [place] [address] PCP - General Family Medicine 07/22/17 documented as of this encounter
--- OUTSIDE RECORDS SUMMARY | 2023-12-03 06:05 | External Medical Summary | Summary of Care ---
Author Name Unknown Organization [facility] Address [address] [facility] [address] Phone [phone] Care Team Providers Care Restaurant Bartender Name Role Phone Ijeoma Kaplan Lela HOLLIDAY Primary Care Provider Encounter Details Date Type Department Care Team Description 07/01/2023 Orders Only Gynecology/Obstetrics [facility] [address] [place] [address] Cholo Terry MD [address] [place] [address] Urinary frequency* Allergies No known active allergiesdocumented as of this encounter (statuses as of 07/01/2023) Medications Medication Sig Dispensed Refills Start Date [...] mcgIndications:Vitamin B 12 deficiency 1000 mcg IM [id number] 05/13/2023 04/13/2024 Active documented as of this encounter (statuses as of 07/01/2023) Active Problems Problem Noted Date History of delivery of macrosomal infant 05/28/2023 Overview: 1st baby 9lb 6oz B12 deficiency 05/08/2023 Supervision of high-risk , unsp ecified trimester 05/07/2023 Overview: M referral Obesity in , antepartum 023 Overview: Pregravid BMI 55.64 No results found for: 50-G GESTATIONAL GLUCOSE Early glucose screen ordered; not complete to date Last Assessment & Plan: CONSIDERATIONS: Discussed obstetrical risks associated with class III obesity (pre- BMI of greater than or equal to 40) Reviewed that the accuracy of ultrasound at diagnosing anomalies is significantly decreased for women with an increased BMI. RECOMMENDATIONS: Recommend restricting weight gain during to 11-20 pounds. Patient should be referred for a nutrition consult. Recommend evaluation for signs and symptoms (snoring, excessive daytime sleepiness witnessed apnea or unexplained hypoxia) of obstructive sleep apnea. If any of these are present, referral to Sleep Medicine specialist for further evaluation should be considered. Recommend performing gestational diabetes mellitus screen now (if not performed at first visit) and repeat again at 26-28 weeks if early screen is normal. Recommend Maternal- Medicine ultrasound for anatomy at 20 weeks and for growth every 4 weeks thereafter. For patients with Class 3 obesity, we recommend baseline preeclamptic labs with CBC, serum AST/ALT/creatinine and 24 hour urine protein MICHAEL if not already done. For patients with Class 3 obesity, we recommend weekly surveillance starting at 34 weeks and delivery by EDC. Recommend anesthesia consult during the antepartum period. Chronic hypertension in 2022 Overview: Obtain baseline lab work MICHAEL (if not already done) with assessment of proteinuria (24-hour urine protein or feswfru-st-kcqayclknu ratio) and CBC, serum AST/ALT/creatinine. If patient [...] assessment of proteinuria (24-hour urine protein or tfatfhr-ut-mgwofwicph ratio) and CBC, serum AST/ALT/creatinine. If patient [...] incision, unknown uterine incision. Delivered at [facility], pt to sign release to obtain operative report from [facility]. AMA (advanced maternal age) multigravida 35+ 05/07/2023 [...] as of this encounter (statuses as of 07/01/2023) Resolved Problems Problem Noted Date Resolved Date [...] as of this encounter (statuses as of 07/01/2023) Immunizations Name Administration Dates Next Due COVID-19, mRNA, LNR-S, Bival ent, PF, 3 mcg/0.2 ml ([facility]) 6m to 4 years 07/26/2022 Covid-19 Ad26, [...] Encounters Date Type Specialty Care Team Description 07/08/2023 Office Visit Gynecology Obstetrics Backer, EDNA Cisneros [address] [place] [address] 07/16/2023 Office Visit Maternal Medicine [facility] [address] [facility] [place] [address] 07/16/2023 Imaging Radiology Scheduled Orders Name Type Priority Associated Diagnoses Orde r Schedule CULTURE, URINE, QUANTITATIVE Lab Routine Urinary frequency Expected: 07/01/2023 (Approximate), Expires: 07/01/2024 Health Maintenance Due Date Last Done Comments [...] Cervical Cancer Screening 05/07/2028 HPV/Co-Test 05/07/2028 05/07/2023 Hepatitis C Screening Completed 05/07/2023 , 05/07/2023, 05/07/2023 GARDASIL-HPV IMMUNIZATION SERIES Aged Out No [...] as of this encounter Visit Diagnoses Diagnosis Urinary frequency- Primary documented in this encounter Care Teams Restaurant Bartender Relationship Specialty Start Date End Date Ijeoma Kaplan, [address] [place] [address] PCP - General Family Medicine 07/22/17 documented as of this encounter
--- OUTSIDE RECORDS SUMMARY | 2023-12-03 06:05 | External Medical Summary | Summary of Care ---
Author Name Unknown Organization [facility] Address [address] [place] [address] Phone [phone] Care Team Providers Care Vibration Technician Name Role Phone Ijeoma Kpalan Lela HOLLIDAY Primary Care Provider Reason for Visit * Reason Comments Outpatient Testing Encounter Details Date Type Department Care Team Description 07/01/2023 Laboratory Laboratory, [facility] [address] [place] [id number] [facility], [facility] [address] [place] [address] Urinary frequency Allergies No known active allergiesdocumented as of [...] mcgIndications:Vitamin B 12 deficiency 1000 mcg IM [id number] 05/13/2023 04/13/2024 Active documented as of this encounter (statuses as of 07/01/2023) Active Problems Problem Noted Date History of delivery of macrosomal 05/28/2023 Overview: [...] assessment of proteinuria (24-hour urine protein or btkgtfd-ui-amysyiukmg ratio) and CBC, serum AST/ALT/creatinine. If patient [...] assessment of proteinuria (24-hour urine protein or nwwtfel-mt-qmijwudlqg ratio) and CBC, serum AST/ALT/creatinine. If patient [...] incision, unknown uterine incision. Delivered at [facility], pt to sign release to obtain operative report from [facility]. AMA (advanced maternal age) multigravida [...] LNR-S, Bival ent, PF, 3 mcg/0.2 ml ([employer]) 6m to 4 years 07/26/2022 Covid-19 Ad26, Single Dose ([employer]) 021 PPD 05/13/2023,06/28/2021,09/08/2017 Seasonal Influenza, PF, 6 [...] Team Description 07/08/2023 Office Visit Gynecology Obstetrics BackerMar CRNP [address] [place] [address] 07/16/2023 Office Visit Maternal Medicine Robbie Parra MD [address] [facility] [place] [address] 07/16/2023 Imaging Radiology Pending Results Name Type Priority Associated Diagnoses Date /Time CULTURE, URINE, QUANTITATIVE Lab Routine Urinary frequency 07/01/2023 4:19 PM EDT Health Maintenance Due Date Last Done Comments [...] of this encounter Visit Diagnoses Diagnosis Urinary frequency documented in this encounter Care Teams Vibration Technician Relationship Specialty Start Date End Date Ijeoma Kaplan, [address] [place] [address] PCP - General Family Medicine 07/22/17 documented as of this encounter
--- OUTSIDE RECORDS SUMMARY | 2023-12-03 06:05 | External Medical Summary ---
Author Name Unknown Address Unknown Organization [id number][facility] [address] [place] [address] Laboratory Report Ordering Provider Test Date Status WOLF MCCARTNEY 06/11/2023 09:05:06 Final Observation Date Value Abnormality Reference (Units ) Status Glucose [Mass/volume] in Serum or Plasma --1 hour post dose glucose 06/11/2023 09:05:06 151 70-179 (mg/dL) Final Performing Location [facility] 0 - [address] [place] [address]
--- OUTSIDE RECORDS SUMMARY | 2023-12-03 06:05 | External Medical Summary | Summary of Care ---
Author Name Unknown Organization [facility] Address [address] [place] [address] Phone [phone] Care Team Providers Care Accounting Practice Manager Name Role Phone Ijeoma Kaplan Lela HOLLIDAY Primary Care Provider Reason for Visit * Reason Comments Outpatient Testing Encounter Details Date Type Department Care Team Description 06/11/2023 Laboratory Laboratory, [facility] [address] [place] [address] KevinMarely morales [facility] [address] [place] [address] Abnormal glucose tolerance in mother complicating Allergies No known active allergiesdocumented as of this encounter (statuses as of 06/11/2023) Medications Medication Sig Dispensed Refills Start Date [...] mcgIndications:Vitamin B 12 deficiency 1000 mcg IM [id number] 05/13/2023 04/13/2024 Active documented as of this encounter (statuses as of 06/11/2023) Active Problems Problem Noted Date History of [...] assessment of proteinuria (24-hour urine protein or zdawyhb-pi-iavhsvocoq ratio) and CBC, serum AST/ALT/creatinine. If patient [...] assessment of proteinuria (24-hour urine protein or zyznjsd-ud-dmzaqvyixu ratio) and CBC, serum AST/ALT/creatinine. If patient [...] uterine incision. Delivered at [facility], pt to sign release to obtain operative report from [facility]. AMA (advanced maternal age) multigravida 35+ 05/07/2023 Overview: Age 38 at [facility] Opted out of genetic screening Last [...] as of this encounter (statuses as of 06/11/2023) Resolved Problems Problem Noted Date Resolved Date [...] as of this encounter (statuses as of 06/11/2023) Immunizations Name Administration Dates Next Due COVID-19, mRNA, LNR-S, Bival ent, PF, 3 mcg/0.2 ml ([employer]) 6m to 4 years 07/26/2022 Covid-19 Ad26, [...] Team Description 07/08/2023 Office Visit Gynecology Obstetrics TreyerMar CRNP [address] [place] [address] 07/16/2023 Office Visit Maternal Medicine Robbie Parra MD [address] [place] [facility] [place] [address] 07/16/2023 Imaging Radiology Pending Results Name Type Priority Associated Diagnoses Date /Time GESTATIONAL GLUCOSE TOLERANCE, 3 HOUR Lab Routine Abnormal glucose tolerance in mother complicating 06/11/2023 8:02 AM EDT 100-G GESTATIONAL GLUCOSE, 3 HOUR Lab Routine Abnormal glucose tolerance in mother complicating 06/11/2023 11:06 AM EDT Health Maintenance Due Date Last Done Comments Hepatitis B (1 of 3 - 3-dose series) 1985 COVID-19 Vaccine (2 - Booster for Carla series) 07/26/2022 07/26/2022, 03/30/2021 Influenza Vaccine (FLU shot) (#1) 2023 07/26/2022, 06/28/2021, 07/22/2017, Additional history exists GFR 05/07/2024 05/07/2023, 10/20, 01/07/2017, Additional history exists Depression Screening, Annual for Pts 12 and Over 05/13/2024 05/13/2023 Diabetes Screening 05/07/2026 05/07/2023, 0 [...] Date/Time Associated Diagnosis Comments 100-G GESTATIONAL GLUCOSE, 2 HOUR Routine 06/11/2023 10:06 AM EDT Abnormal glucose tolerance in mother complicating 100-G GESTATIONAL GLUCOSE, 1 HOUR Routine 06/11/2023 9:05 AM EDT Abnormal glucose tolerance in mother complicating 100-G GESTATIONAL GLUCOSE, FASTING Routine 06/11/2023 8:02 AM EDT Abnormal glucose tolerance in mother complicating documented in this encounter Results * 100-G GESTATIONAL GLUCOSE, 2 HOUR (06/11/2023 10:06 AM EDT) 100-g Gestational Glucose, 2 Hour 135 70 - 154 mg/dL 06/11/2023 10:51 AM EDT [facility] Blood Venous blood specimen / Unknown Venipuncture / Unknown 06/11/2023 10:06 AM EDT 06/11/2023 10:06 AM EDT Nicole COOKNP LAB BLOOD ORDERABLES [facility] [place] [address] * 100-G GESTATIONAL GLUCOSE, 1 HOUR (06/11/2023 9:05 AM EDT) 100-g Gestational Glucose, 1 Hour 151 70 - 179 mg/dL 06/11/2023 9:47 AM EDT [facility] Blood Venous blood specimen / Unknown Venipuncture / Unknown 06/11/2023 9:05 AM EDT 06/11/2023 9:05 AM EDT Nicole COOKNP LAB BLOOD ORDERABLES Performing Organization Address City/[facility]/ZIP Co de Phone Number [facility] [place] [address] * 100-G GESTATIONAL GLUCOSE, FASTING (06/11/2023 8:02 AM EDT) 100-g Gestational Glucose, Fasting 86 70 - 94 mg/dL 06/11/2023 9:03 AM EDT [facility] Blood Venous blood specimen / Unknown Venipuncture / Unknown 06/11/2023 8:02 AM EDT 06/11/2023 8:03 AM EDT Narrative [facility] - 06/11/2023 9:03 AM EDT Based on ACOG guideline, gestational diabetes mellitus is diagnosed when any of the following is met: Fasting is greater than or equal to 95 mg/dL 1 hour is greater than or equal to 180 mg/dL 2 hour is greater than or equal to 155 mg/dL 3 hour is greater than or equal to 140 mg/dL Nicole COOKNP LAB BLOOD ORDERABLES [facility] [place] [address] documented in this encounter Visit Diagnoses Diagnosis Abnormal glucose tolerance in mother complicating Abnormal maternal glucose tolerance, complicating , childbirth, or the puerperium, unspecified as to episode of care documented in this encounter Care Teams Accounting Practice Manager Relationship Specialty Start Date End Date Ijeoma Kaplan DO [address] [facility] [place] [address] PCP - General Family Medicine 07/22/17 documented as of this encounter
--- OUTSIDE RECORDS SUMMARY | 2023-12-03 06:05 | External Medical Summary | Summary of Care ---
Author Name Unknown Organization [facility] Address [address] [facility] [place] [address] Phone [phone] Care Team Providers Care Chemical Engineer Name Role Phone JosueIjeoma mistry Lela HOLLIDAY Primary Care Provider Reason for Visit * Reason Comments Return Visit Encounter Details Date Type Department Care Team Description 07/08/2023 Office Visit Gynecology[facility]stetrics [facility] [place] [address] Mar Rhoades CRNP [address] [facility] [place] [address] Supervision of high-risk , unspecified trimester*; Obesity in , antepartum; Chronic hypertension in ; H/O section; Multigravida of advanced maternal age in second trimester; History of delivery of macrosomal ; Urinary tract infection in mother during second trimester of Allergies No known active allergiesdocumented as of this encounter (statuses as of 07/08/2023) Medications Medication Sig Dispensed Refills Start Date [...] mcgIndications:Vitamin B 12 deficiency 1000 mcg IM [id number] 05/13/2023 04/13/2024 Active documented as of this encounter (statuses as of 07/08/2023) Active Problems Problem Noted Date Urinary tract infection in mother during second trimester of 07/08/2023 Overview: +E coli, Keflex sent 18w 4d History of delivery of macrosomal infant 05/28/2023 Overview: 1st baby 9lb 6oz B12 deficiency 05/08/2023 Supervision of high-risk , uns ecified trimester 05/07/2023 Overview: M referral Obesity [...] assessment of proteinuria (24-hour urine protein or baalchb-xo-qwdhwwafug ratio) and CBC, serum AST/ALT/creatinine. If patient [...] assessment of proteinuria (24-hour urine protein or yeizurb-mu-pqhfeivwcz ratio) and CBC, serum AST/ALT/creatinine. If patient [...] skin incision, unknown uterine incision. Delivered at [facility], pt to sign release to obtain operative report from [facility]. AMA (advanced maternal age) multigravida 35+ 05/07/2023 Overview: Age 38 at [facility] Opted out of genetic screening Last [...] as of this encounter (statuses as of 07/08/2023) Resolved Problems Problem Noted Date Resolved Date [...] as of this encounter (statuses as of 07/08/2023) Immunizations Name Administration Dates Next Due COVID-19, mRNA, LNR-S, Bival ent, PF, 3 mcg/0.2 ml ([email or web address]) 6m to 4 years 07/26/2022 Covid-19 Ad26, [...] Sign Reading Time Taken Comments Blood Pressure 128/76 07/08/2023 11:13 AM EDT Pulse - - Temperature - - Respiratory Rate - - Oxygen Saturation - - Inhaled Oxygen Concentration - - Weight 147 kg (324 lb) 07/08/2023 11:13 AM EDT Height - - Body Mass Index 57.39 06/09/2023 11:42 AM EDT documented in this encounter Progress Notes * EDNA Chen - 07/08/2023 11:29 AM EDT No vaginal bleeding/cramping. + movement. Has anatomy scan scheduled with [facility]. Recent urine culture +e coli, pt not notified - Rx sent for Keflex. Has some congestion, wishes to wait until feeling better before getting her flu shot. Will f/u withPCP if URI symptoms persist/worsen. Reviewed comfort measures. Declines genetic screening. 4 week return EDNA Elizabeth * Faiza Michel LPN - 07/08/2023 11:16 AM EDT 18w4d Denies vaginal bleeding/rom + movement Feeling congested Look at recent urine lab results Defer flu until feeling better documented in this encounter Plan of Treatment Upcoming Encounters Date Type Specialty Care Team Description 07/16/2023 Office Visit Maternal Medicine Robbie Parra MD [address] [place] [address] 07/16/2023 Imaging Radiology 08/05/2023 Office Visit Gynecology Obstetrics Backer, EDNA Cisneros [address] [place] [address] Health Maintenance Due Date Last Done Comments [...] Comments URINALYSIS, POINT OF CARE (ENTER/EDIT) Routine 07/08/2023 Supervision of high-risk , unspecified trimester Chronic hypertension in documented in this encounter Results * URINALYSIS, POINT OF CARE (ENTER/EDIT) (07/08/2023) Color, Urine Yellow Yellow or Light Yellow Clarity, Urine Clear Clear Glucose, Urine Negative Negative mg/dL Bilirubin, Urine Negative Negative Ketone, Urine Negative Negative mg/dL Specific [place], Urine 1.015 1.003 - 1.030 Blood, Urine Trace-intact Negative pH, Urine 6.0 5.0 - 7.5 units Protein, Urine Negative Negative mg/dL Urobilinogen, Urine 0.2 0.2 - 1.0 mg/dL Nitrite, Urine Negative Negative Esterase, Urine Negative Negative Urine 07/08/2023 Mar [facility] [...] of documented in this encounter Care Teams Chemical Engineer Relationship Specialty Start Date End Date Ijeoma Kaplan, DO [address] [place] [address] PCP - General Family Medicine 07/22/17 documented as of this encounter
--- OUTSIDE RECORDS SUMMARY | 2023-12-03 06:06 | External Medical Summary ---
Author Name Unknown Address Unknown Organization [id number]:[facility] [address] [place] [id number] Laboratory Report Ordering Provider Test Date Status SUSAN STERLING 06/09/2023 12:05:02 Final Observation Date Value Abnormality Reference (Units) Status Bacteria identified in Specimen by Culture 06/09/2023 12:05:02 No significant growth Final Test: Culture, Urine, Quant itative
Specimen Source: Urine, Clean Catch
Specimen Type: Urine
Specimen Date: 06/09/2023 12:05 PM
Result Date: 06/10/2023 4:32 PM
Result Status: Final result
Resulting Lab: [facility]
[address]
[facility] [address]

CULTURE

No significant growth

null Performing Location [facility] [address] [facility] [address]
--- OUTSIDE RECORDS SUMMARY | 2023-12-03 06:06 | External Medical Summary ---
Author Name Unknown Address Unknown Organization K01:[facility] [address] [facility] [address] [facility] [address] Laboratory Report Ordering Provider Test Date Status MARTHASUZANNACJ 06/09/2023 12:30:00 Final Observation Date Value Abnormality Reference (Units ) Status T4, Free 06/09/2023 12:30:00 1.1 0.9-1.7 (n g/dL) Final Performing Location [facility] - [address] [place] [address]
--- OUTSIDE RECORDS SUMMARY | 2023-12-03 06:06 | External Medical Summary ---
Author Name Unknown Address Unknown Organization K01:[facility] - [address] [place] [address] Laboratory Report Ordering Provider Test Date Status BRITTANY MCCARTNEYTU 06/09/2023 12:30:00 Final Observation Date Value Abnormality Reference (Units ) Status Glucose [Moles/volume] in Serum or Plasma --1 hour post 50 g glucose PO 06/09/2023 12:30:00 168 Above high normal 70-129 (mg/dL) Final Performing Location [facility] - [address] [place] [address]
--- OUTSIDE RECORDS SUMMARY | 2023-12-03 06:06 | External Medical Summary | Summary of Care ---
Author Name Unknown Organization [facility] Address [address] [place] [address] Phone [phone] Care Team Providers Care Winder Fixer Name Role Phone JosueIjeoma mistry Lela HOLLIDAY Primary Care Provider Reason for Visit * Reason Comments Return Visit Encounter Details Date Type Department Care Team Description 06/09/2023 Office Visit Gynecology/Obstetrics [facility] [address] [facility] [place] [address] Juan Manuel Soriano CNM [address] [facility] [address] Supervision of high-risk , unspecified trimester*; Obesity in , antepartum; Chronic hypertension in ; H/O section; Multigravida of advanced maternal age in second trimester; History of delivery of macrosomal ; Urinary tract infection in mother during , antepartum Allergies No known active allergiesdocumented as of this encounter (statuses as of 06/09/2023) Medications Medication Sig Dispensed Refills Start Date [...] mcgIndications:Vitamin B 12 deficiency 1000 mcg IM [id number] 05/13/2023 04/13/2024 Active documented as of this encounter (statuses as of 06/09/2023) Active Problems Problem Noted Date History of delivery of macrosomal infant 05/28/2023 Overview: 1st baby 9lb 6oz B12 deficiency 05/08/2023 Supervision of high-risk , unsp ecified trimester 05/07/2023 Overview: [facility] referral Obesity in , antepartum 023 Overview: [...] in 2022 Overview: Obtain baseline lab work MCIHAEL (if not already done) with assessment of proteinuria (24-hour urine protein or hoaqzai-ga-nzvyxcuccl ratio) and CBC, serum AST/ALT/creatinine. If patient [...] assessment of proteinuria (24-hour urine protein or xiicezz-sw-yjbduwbrdp ratio) and CBC, serum AST/ALT/creatinine. If patient [...] uterine incision. Delivered at [facility], pt to sign release to obtain operative report from [facility]. AMA (advanced maternal age) multigravida 35+ 05/07/2023 Overview: Age 38 at [facility] Opted [...] as of this encounter (statuses as of 06/09/2023) Resolved Problems Problem Noted Date Resolved Date [...] as of this encounter (statuses as of 06/09/2023) Immunizations Name Administration Dates Next Due COVID-19, mRNA, LNR-S, Bival ent, PF, 3 mcg/0.2 ml ([employer]) 6m to 4 years 07/26/2022 Covid-19 Ad26, [...] Sign Reading Time Taken Comments Blood Pressure 132/84 06/09/2023 11:42 AM EDT Pulse - - Temperature - - Respiratory Rate - - Oxygen Saturation - - Inhaled Oxygen Concentration - - Weight 143.8 kg (317 lb) 06/09/2023 11:42 AM EDT Height 160 cm (5' 3") 06/09/2023 11:42 AM EDT Body Mass Index 56.15 06/09/2023 11:42 AM EDT documented in this encounter Progress Notes * Juan Manuel Soriano CNM - 06/09/2023 11:47 AM EDT TAD at 14w3d Feeling better than the first trimester. Denies any n/v, bleeding or cramping. Has started her B12 injections. Started on aspirin 81mg at 14weeks. Declines Qnatal DONNA urine culture completed today, patient with UTI at [facility], reports taking her antibiotics fully. Continues on labetalol. BP WNL today, patient reports WNL BP at home with home monitoring. Completing early gtt today. Met with [facility] on 05/13/23 has anatomy scan scheduled 07/16/23. She reports she signed record request for C/S records, records still not available, we discussed ifnot scanned by NOV, we will request again. Agreeable. RTO 4 weeks documented in this encounter Plan of Treatment Upcoming Encounters Date Type Specialty Care Team Description 07/08/2023 Office Visit Gynecology Obstetrics Backer, EDNA Cisneros [address] [place] [address] 07/16/2023 Office Visit Maternal Medicine [place], Robbie Lewis MD [address] [facility] [place] [address] 07/16/2023 Imaging Radiology Pending Results Name Type Priority Associated Diagnoses Date /Time CULTURE, URINE, QUANTITATIVE Lab Routine Urinary tract infection in mother during , antepartum 06/09/2023 12:05 PM EDT Health Maintenance Due Date Last [...] macrosomal Urinary tract infection in mother during , antepartum documented in this encounter Care Teams Winder Fixer Relationship Specialty Start Date End Date Ijeoma Kaplan, [address] [place] [address] PCP - General Family Medicine 07/22/17 documented as of this encounter
--- OUTSIDE RECORDS SUMMARY | 2023-12-03 06:06 | External Medical Summary ---
Author Name Unknown Address Unknown Organization K0G:[facility] [place] [address] [place] [address] Laboratory Report Ordering Provider Test Date Status CJ ARCHER 06/09/2023 12:30:00 Final Observation Date Value Abnormality Reference (Units ) Status SYNC LEUKOCYTES IN BLOOD BY AUTOMATED COUNT 06/09/2023 12:30:00 13.35 Above high normal 4.00-10.80 (K/uL) Final Segs 06/09/2023 12:30:00 69.2 40.0-75.0 (%) Final Lymphs % 06/09/2023 12:30:00 24.8 18.0-42.0 (%) Final Monos 06/09/2023 12:30:00 4.3 1.0-11.0 (%) Final Eosinophils 06/09/2023 12:30:00 1.6 0.0-6.0 (%) Final Basos 06/09/2023 12:30:00 0.1 0.0-2.0 (%) Final Absolute Segs 06/09/2023 12:30:00 9.23 Above high normal 1.80-7.70 (K/uL) Final Lymphs, absolute 06/09/2023 12:30:00 3.31 1.00-4.80 (K/ul) Final Monos, Abs 06/09/2023 12:30:00 0.57 0.00-1.10 (K/uL) Final Eos, Abs 06/09/2023 12:30:00 0.22 0.00-0.70 (K/uL) Final Basos, Abs 06/09/2023 12:30:00 0.02 0.00-0.20 (K/uL) Final Performing Location [facility] [place] [address]
--- OUTSIDE RECORDS SUMMARY | 2023-12-03 06:06 | External Medical Summary | Summary of Care ---
Author Name Unknown Organization [facility] Address [address] [place] [address] Phone [phone] Care Team Providers Care Pillow Filler Name Role Phone JosueIjeoma mistry Lela HOLLIDAY Primary Care Provider Reason for Visit * Reason Comments Return Visit Encounter Details Date Type Department Care Team Description 06/09/2023 Office Visit Gynecology/Obstetrics [facility] [address] [facility] [place] [address] Juan Manuel Soriano CNM [address] [facility] [address] [address] Supervision of high-risk , unspecified [...] mcgIndications:Vitamin B 12 deficiency 1000 mcg IM [id number] 05/13/2023 04/13/2024 Active documented as of this encounter (statuses as of 06/09/2023) Active Problems Problem Noted Date History of delivery of macrosomal infant 05/28/2023 Overview: 1st baby 9lb 6oz B12 deficiency 05/08/2023 Supervision of high-risk , unsp ecified trimester 05/07/2023 Overview: [facility] referral Obesity in , antepartum 023 Overview: [...] assessment of proteinuria (24-hour urine protein or fjwexwg-pz-wkrukbhhtu ratio) and CBC, serum AST/ALT/creatinine. If patient [...] assessment of proteinuria (24-hour urine protein or hnwbvnb-aj-ltsevglqwc ratio) and CBC, serum AST/ALT/creatinine. If patient [...] incision. Delivered at [facility], pt to sign release to obtain operative report from [facility]. AMA (advanced maternal age) multigravida 35+ 05/07/2023 Overview: Age 38 at [facility] Opted out of genetic screening Last [...] LNR-S, Bival ent, PF, 3 mcg/0.2 ml ([employer]) 6m to 4 years 07/26/2022 Covid-19 [...] culture completed today, patient with UTI at [facility], reports taking her antibiotics fully. Continues on labetalol. BP WNL today, patient reports WNL BP at home with home monitoring. Completing early gtt today. Met with [facility] on 05/13/23 has anatomy scan scheduled 07/16/23. She reports she signed record request for C/S records, records still not available, we discussed ifnot scanned by NOV, we will request again. Agreeable. RTO 4 weeks documented in this encounter Plan of Treatment Upcoming Encounters Date Type Specialty Care Team Description 07/08/2023 Office Visit Gynecology Obstetrics Backer, EDNA Cisneros [address] [place] [address] 07/16/2023 Office Visit Maternal Medicine Bringtamar, Robbie Lewis MD [address] [facility] [place] [address] 07/16/2023 Imaging Radiology Pending Results Name Type [...] antepartum documented in this encounter Care Teams Pillow Filler Relationship Specialty Start Date End Date Ijeoma Kaplan, [address] [place] [address] PCP - General Family Medicine 07/22/17 documented as of this encounter
--- OUTSIDE RECORDS SUMMARY | 2023-12-03 06:06 | External Medical Summary ---
Author Name Unknown Address Unknown Organization [id number]:[facility] - [address] [place] [address] Laboratory Report Ordering Provider Test Date Status MARTHASUZANNACJ 06/09/2023 12:30:00 Final Observation Date Value Abnormality Reference (Units ) Status TSH 06/09/2023 12:30:00 2.19 0.27-4.20 (uIU/mL) Final Performing Location [facility] - [address] [place] [address]
--- OUTSIDE RECORDS SUMMARY | 2023-12-03 06:06 | External Medical Summary | Summary of Care ---
Author Name Unknown Organization [facility] Address [address] [place] [address] Phone [phone] Care Team Providers Care Restaurant Cook Name Role Phone JosueIjeoma mistry Lela HOLLIDAY Primary Care Provider [phone] Reason for Visit * Reason Comments Outpatient Testing Encounter Details Date Type Department Care Team Description 06/09/2023 [facility] [address] [facility] [place] [address] Marely Kevins [address] [facility] [place] [address] Multigravida of advanced maternal age in first trimester; Obesity, Class III, BMI 40-49.9 (morbid obesity) ([facility]); TSH elevation; Physical exam, annual; Body mass index (BMI) of 50.0 to 59.9 in adult ([facility]); HTN, goal below 140/90 Allergies No known active allergiesdocumented as of [...] mcgIndications:Vitamin B 12 deficiency 1000 mcg IM [id number] 05/13/2023 04/13/2024 Active documented as of this [...] assessment of proteinuria (24-hour urine protein or slogcoz-hp-fgssawhvvb ratio) and CBC, serum AST/ALT/creatinine. If patient [...] assessment of proteinuria (24-hour urine protein or mzfjkee-ta-cwrhpluswz ratio) and CBC, serum AST/ALT/creatinine. If patient [...] skin incision, unknown uterine incision. Delivered at [facility], pt to sign release to obtain operative report from [facility]. AMA (advanced maternal age) multigravida [...] LNR-S, Bival ent, PF, 3 mcg/0.2 ml ([employer]) 6m to 4 years 07/26/2022 Covid-19 Ad26, [...] Team Description 07/08/2023 Office Visit Gynecology Obstetrics Mar Rhoades CRNP [address] [place] [address] 07/16/2023 Office Visit Maternal Medicine Robbie Parra MD [address] [place] [address] 07/16/2023 Imaging Radiology Pending Results Name Type Priority Associated Diagnoses Date /Time 50-G GESTATIONAL GLUCOSE, 1 HOUR Lab Routine Multigravida of advanced maternal age in first trimester Obesity, Class III, BMI 40-49.9 (morbid obesity) (HCC) 06/09/2023 12:30 PM EDT TSH Lab Routine TSH elevation 06/09/2023 12:30 PM EDT T4, FREE Lab Routine TSH elevation 06/09/2023 12:30 PM EDT Health Maintenance Due Date Last [...] Procedure Name Priority Date/Time Associated Diagnosis Comments DIFFERENTIAL, AUTOMATED Routine 06/09/2023 12:30 PM EDT Physical exam, annual Body mass index (BMI) of 50.0 to 59.9 in adult (HCC) HTN, goal below 140/90 CBC WITH WBC DIFFERENTIAL Routine 06/09/2023 12:30 PM EDT Physical exam, annual Body mass index (BMI) of 50.0 to 59.9 in adult (HCC) HTN, goal below 140/90 CBC Routine 06/09/2023 12:30 PM EDT Physical exam, annual Body mass index (BMI) of 50.0 to 59.9 in adult (HCC) HTN, goal below 140/90 documented in this encounter Results * (ABNORMAL) DIFFERENTIAL, AUTOMATED (06/09/2023 12:30 PM EDT) WBC 13.35(H) 4.00 - 10.80 K/uL 06/09/2023 12:40 PM EDT [facility] Neutrophils % 69.2 40.0 - 75.0 % 06/09/2023 12:40 PM EDT [facility] Lymphocytes % 24.8 18.0 - 42.0 % 06/09/2023 12:40 PM EDT [facility] Monocytes % 4.3 1.0 - 11.0 % 06/09/2023 12:40 PM EDT [facility] Eosinophils % 1.6 0.0 - 6.0 % 06/09/2023 12:40 PM EDT [facility] Basophils % 0.1 0.0 - 2.0 % 06/09/2023 12:40 PM EDT [facility] Absolute Neutrophils 9.23(H) 1.80 - 7.70 K/uL 06/09/2023 12:40 PM EDT [facility] Absolute Lymphocytes 3.31 1.00 - 4.80 K/ul 06/09/2023 12:40 PM EDT [facility] Absolute Monocytes 0.57 0.00 - 1.10 K/uL 06/09/2023 12:40 PM EDT [facility] Absolute Eosinophils 0.22 0.00 - 0.70 K/uL 06/09/2023 12:40 PM EDT [facility] Absolute Basophils 0.02 0.00 - 0.20 K/uL 06/09/2023 12:40 PM EDT [facility] Blood Venous blood specimen / Unknown Venipuncture / Unknown 06/09/2023 12:30 PM EDT 06/09/2023 12:30 PM EDT Gertrudis Hodge MD LAB BLOOD ORDERABLES [facility] [place] [address] * (ABNORMAL) CBC (06/09/2023 12:30 PM EDT) WBC 13.35(H) 4.00 - 10.80 K/uL 06/09/2023 12:40 PM EDT [facility] RBC 3.56 3.85 - 5.15 M/uL 06/09/2023 12:40 PM EDT [facility] HGB 10.7(L) 12.0 - 15.3 g/dL 06/09/2023 12:40 PM EDT [facility] HCT 32.2(L) 36.0 - 45.2 % 06/09/2023 12:40 PM EDT [facility] MCV 90.4 81.5 - 97.5 fL 06/09/2023 12:40 PM EDT [facility] MCH 30.1 27.0 - 34.0 pg 06/09/2023 12:40 PM EDT [facility] MCHC 33.2 32.0 - 36.0 g/dL 06/09/2023 12:40 PM EDT [facility] RDW 14.2 11.5 - 15.5 % 06/09/2023 12:40 PM EDT [facility] PLT 320 140 - 400 K/uL 06/09/2023 12:40 PM EDT [facility] MPV 9.1 6.6 - 11.1 fL 06/09/2023 12:40 PM EDT [facility] Blood Venous blood specimen / Unknown Venipuncture / Unknown 06/09/2023 12:30 PM EDT 06/09/2023 12:30 PM EDT Gertrudis Hodge MD LAB BLOOD ORDERABLES [facility] [place] [address] documented in this encounter Visit Diagnoses Diagnosis Multigravida of advanced maternal age in first trimester Obesity, Class III, BMI 40-49.9 (morbid obesity) (HCC) Morbid obesity TSH elevation Other abnormal blood chemistry Physical exam, annual Routine general medical examination at a health care facility Body mass index (BMI) of 50.0 to 59.9 in adult (HCC) HTN, goal below 140/90 Unspecified essential hypertension documented in this encounter Care Teams Restaurant Cook Relationship Specialty Start Date End Date Ijeoma Kaplan, [address] [place] [address] PCP - General Family Medicine 07/22/17 documented as of this encounter
--- OUTSIDE RECORDS SUMMARY | 2023-12-03 06:06 | External Medical Summary ---
Author Name Unknown Address Unknown Organization [facility] [place] [address] - [address] [place] [address] Laboratory Report Ordering Provider Test Date Status CJ ARCHER 06/09/2023 12:30:00 Final Observation Date Value Abnormality Reference (Units ) Status WBC, Total 06/09/2023 12:30:00 13.35 Above high normal 4 .00-10.80 (K/uL) Final RBC 06/09/2023 12:30:00 3.56 3.85-5.15 (M/uL) Final Hemoglobin 06/09/2023 12:30:00 10.7 Below low normal 12 .0-15.3 (g/dL) Final HCT 06/09/2023 12:30:00 32.2 Below low normal 36. 0-45.2 (%) Final MCV 06/09/2023 12:30:00 90.4 81.5-97.5 (fL) Final MCH 06/09/2023 12:30:00 30.1 27.0-34.0 (pg) Final MCHC 06/09/2023 12:30:00 33.2 32.0-36.0 (g/dL) Final RDW 06/09/2023 12:30:00 14.2 11.5-15.5 (%) Final Platelets 06/09/2023 12:30:00 320 140-400 (K /uL) Final MPV 06/09/2023 12:30:00 9.1 6.6-11.1 ( fL) Final Performing Location [facility] [address] [facility] [address] [place] [address]
[2023-12-03] MEDS ORDERED: SODIUM CHLORIDE 0.9% 250 ML IV PRN (06:07)
--- NOTE | 2023-12-03 07:21 | History & Physical Bridge Note ---
Date of Service December 03, 2023 History & Physical Bridge Note I have examined the patient, reviewed the History & Physical and in the interval since the performance of the History & Physical I have noted the following changes of clinical significance: no changes noted
[2023-12-03] MEDS ORDERED: MoRPHine SULFATE PF 1 MG/ML 10 ML AMP/VIAL ONE (07:26)
[2023-12-03] MEDS: CITRIC ACID/SODIUM CITRATE 15 ML UDC PO STA (07:33)
[2023-12-03] MEDS ORDERED: OXYTOCIN 10 UNITS/ML VIAL ONE (08:02)
[2023-12-03] MEDS ORDERED: KETOROLAC 30 MG/ML VIAL ONE (08:02)
[2023-12-03] MEDS ORDERED: ONDANSETRON INJ 2 MG/ML 2 ML VIAL ONE (08:02)
[2023-12-03] MEDS ORDERED: MoRPHine SULFATE 2 MG/ML CARP ONE (08:40)
[2023-12-03] MEDS ORDERED: SENNA 8.6 MG TAB PO PRN (08:50)
[2023-12-03] MEDS ORDERED: HYDROCORTISONE ACETATE 25 MG SUPP PR PRN (08:50)
[2023-12-03] MEDS ORDERED: BENZOCAINE 20% SPRY 85 APPLN/85 GM CAN EXT PRN (08:50)
[2023-12-03] MEDS ORDERED: MAGNESIUM HYDROXIDE SUSP 30 ML UDC PO PRN (08:50)
[2023-12-03] MEDS ORDERED: ONDANSETRON INJ 2 MG/ML 2 ML VIAL IV PRN ×2 (08:50→09:14)
[2023-12-03] MEDS ORDERED: NALOXONE HCL 1 MG in SODIUM CHLORIDE 0.9% 1,000 ML IV PRN (09:14)
[2023-12-03] MEDS ORDERED: MEPERIDINE HCL 25 MG/ML CARP/VIAL IV PRN (09:14)
[2023-12-03] MEDS ORDERED: NALBUPHINE HCL 5 MG in SYRINGE 0 ML IV PRN (09:14)
[2023-12-03] MEDS ORDERED: LACTATED RINGER'S 500 ML IV PRN (09:14)
[2023-12-03] MEDS ORDERED: NALOXONE HCL 0.08 MG in SYRINGE 1.8 ML IV PRN (09:14)
[2023-12-03] MEDS ORDERED: ePHEDrine sulfate 50 MG/ML AMP IV PRN (09:14)
[2023-12-03] MEDS ORDERED: PROMETHAZINE HCL 6.25 MG in SODIUM CHLORIDE 0.9% 50 ML IV PRN (09:14)
[2023-12-03] MEDS ORDERED: NALOXONE HCL 0.4 MG/1 ML VIAL/CARP IV PRN (09:14)
[2023-12-03] MEDS ORDERED: NO NARCOTICS OR SEDATIVES SCH (09:15)
[2023-12-03] MEDS ORDERED: DC INTRASPINAL MORPHINE SCH (09:15)
--- NOTE | 2023-12-03 09:18 | Anesthesiology Progress Note ---
Date of Service December 03, 2023 Anesthesia Post Procedure Vital Signs Vital Signs: Temp Pulse Resp BP Pulse Ox 12/03/23 09:16 72 93 12/03/23 09:13 71 98 12/03/23 09:10 72 116/65 94 12/03/23 09:08 75 97 12/03/23 07:08 36.8 C 81 18 137/79 12/03/23 06:03 93 H 144/80 H 12/03/23 05:49 36.9 C 20 Transfer of Care Handoff Completed per policy Notes Mental Status: alert / awake / arousable Nausea / Vomiting: adequately controlled Pain: adequately controlled Airway Patency, RR, SpO2: stable & adequate BP & HR: stable & adequate Hydration State: stable & adequate Neuraxial Anesthesia: was administered and sensory block is resolving Anesthetic Complications: no major complications apparent and Pt Satisfied with anesthetic care
--- NOTE | 2023-12-03 10:11 | Post Operative Brief Note ---
Immediate Post Op Note v1 Date of Surgery December 03, 2023 Pre & Post Diagnosis Operation Date: 12/03/23 07:30 Pre-Op Diagnosis: 1.Term elective repeat section 2. Breech 3. Voluntary Sterilization Post-Op Diagnosis: Same as preoperative I identified the patient and participated in the time-out.: Yes Procedure Operation Date: 12/03/23 07:30 Actual Procedures p Section in LD(Bilateral) - Kp Cardenas MD Surgeon Kp Cardenas MD Assault Amphibious Vehicle Officer Dr. Degroot and [place] Estimated Blood Loss 500 Findings Consistent with Post-Op Diagnosis live female christopher breech presentation Apgars 7/9 weight 9 lbs. Fluids LR 1500 ml. Specimens placenta right fallopian tube segmnet of left fallopian tube Drains Mejía Catheter (100 ml.) Anesthesia Type Spinal Complications none Disposition Accompanied Patient To Recovery: Yes Overlapping Procedure I was present for: the critical portions of procedure. I was immediately available: during the entire case. Back up surgeon: used during listed procedure.
[2023-12-03] MEDS: OXYTOCIN 20 UNITS/LR 1,002 ML IV SCH (11:11)
[2023-12-03] MEDS: MoRPHine SULFATE 2 MG/ML CARP IV PRN (11:30)
--- NOTE | 2023-12-03 11:45 | Operative Report ---
Post Operative Report Pre & Post Diagnosis Operation Date: 12/03/23 07:30 Pre-Op Diagnosis: 1.Term elective repeat section 2. Breech 3. Voluntary Sterilization Post-Op Diagnosis: Same as preoperative I identified the patient and participated in the time-out.: Yes Procedure Operation Date: 12/03/23 07:30 Actual Procedures p Section in LD(Bilateral) - Kp Cardenas MD Surgeon Kp Cardenas MD B[place] Worker Helper Dr. Degroot and [place] Estimated Blood Loss 500 Findings Consistent with Post-Op Diagnosis live female christopher breech Apgars 7/9 9lbs. Fluids LR 1500 ml. Specimens placenta right tube portion of left tube Drains none Anesthesia Type Spinal Complications none Disposition Accompanied Patient To Recovery: Yes Indications elective repeat voluntary sterilization Description of Procedure Under satisfactory spinal anesthesia the patient was prepped draped usual sterile fashion. A timeout was called patient received antibiotics preop. A low Pfannenstiel incision was made entering into the abdominal cavity in successive layers without difficulty upon entering into the peritoneal cavity the baby was noted to be in the christopher breech presentation delivery of the legs a nd then following the abdomen and head was accomplished without difficulty. Delivering a live female Apgars were 7 and 9 with a delay of cord clamping weight was 9 pounds. Cord blood was obtained. The placenta was then delivered spontaneously and intact. Ring forceps were then placed on both angles of the uterus after the uterus was then exteriorized cleaned lap pad was then used to clean the inside of the uterus of all clots and debris. Uterus was closed in double layer closure with 0 Vicryl suture in a continuous interlocking fashion followed by a second imbricating suture of 0 Vicryl suture. The lower uterine segment segment was inspected no active bleeding was noted patient desired voluntary sterilization procedure the right tube was grasped with [place] clamp and then using the hand-held Liga-Sure device the tube was removed. This was submitted to pathology as a separate specimen. The left tube was found to be encased in adhesions. Rather than attempt to remove the entire tube decision was then made to do a regular tubal ligation 2 segments of tissue were then isolated ligatures were placed with 0 Vicryl suture and then the tube segment of tube was cut and then removed and sent to pathology as a separate specimen on the left the ends of the tubes were then cauterized. No active bleeding was noted the initial sponge needle instrument count were found to be correct the uterus was then placed back into the normal anatomical position the fascia was then reapproximated from both ends using #1 Vicryl suture in a continuous fashion. Subcuticular space was then irrigated to clear bleeders were cauterized the subcuticular space was then closed with 3-0 plain suture. The skin was then reapproximated with 4-0 Monocryl suture followed by a Raúl dressing. Final sponge needle instrument count were found to be correct the estimated blood loss was 500 mL total fluids 1500 mL and total urine output is 100 mL. Patient was then placed supine on the stretcher she was taken to recovery room in stable condition. Please note that Dr. Degroot was needed for assistance at the for assistance with retraction, exposure, closure of the uterus, fundal pressure and closure of the abdomen. I attest to the content of the Intraoperative Record and any orders documented therein. Any exceptions are noted below.
[2023-12-03] MEDS: diphenhydrAMINE 50 MG/ML VIAL IV PRN (12:04)
[2023-12-03] MEDS: SIMETHICONE 80 MG CHEW PO SCH (13:44)
[2023-12-03] MEDS: LABETALOL HCL 100 MG TAB PO ONE (15:40)
[2023-12-03] MEDS: KETOROLAC 30 MG/ML VIAL IV PRN (16:04)
[2023-12-03] MEDS: HYDROmorphone INJ 0.5 MG/0.5 ML SYR IV PRN (18:32)
[2023-12-03] MEDS: DOCUSATE SODIUM 100 MG CAP PO SCH (21:05)
[2023-12-03] MEDS: LABETALOL HCL 100 MG TAB PO SCH (21:05)
[2023-12-04] MEDS ORDERED: KETOROLAC 30 MG/ML VIAL IV PRN (03:14)
[2023-12-04] MEDS ORDERED: PROMETHAZINE HCL 25 MG in SODIUM CHLORIDE 0.9% 50 ML IV PRN (03:14)
[2023-12-04] MEDS ORDERED: diphenhydrAMINE 50 MG/ML VIAL IV PRN (03:14)
[2023-12-04] MEDS ORDERED: MEPERIDINE HCL 50 MG/ML CARP IV PRN (03:14)
[2023-12-04] MEDS ORDERED: diphenhydrAMINE Capsule 25 MG CAP PO PRN (03:14)
[2023-12-04] MEDS: oxyCODONE/ACETAMINOPHEN 5mg/325mg TAB PO PRN (03:23)
[2023-12-04] MEDS: IBUPROFEN 600 MG TAB PO PRN (03:23)
[2023-12-04 06:49] LABS: Basophils # (auto) 0.04 K/uL (0.00-0.20); Basophils % (auto) 0.3 %; Eosinophils % (auto) 1.5 %; Hematocrit (blood only) 30.9 % (37.0-47.0); Hemoglobin 10.2 g/dl (12.0-16.0); Immature Granulocytes # (auto) 0.14 K/uL (0.01-0.20); Lymphocytes # (auto) 2.23 K/uL (1.20-3.40); Lymphocytes % (auto) 16.3 %; Mean Corpuscular Hemoglobin 29.8 pg (25.0-34.0); Mean Corpuscular Volume 90.4 fL (80.0-100.0); Mean Platelet Volume 9.6 fL (9.4-12.4); Monocytes # (auto) 0.97 K/uL (0.11-0.59); Monocytes % (auto) 7.1 %; Neutrophils # (auto) 10.13 K/uL (1.40-6.50); Neutrophils % (auto) 73.8 %; Platelet Count 224 K/uL (130-400); RDW Coefficient of Variation 14.3 % (11.5-14.5); RDW Standard Deviation 47.1 fL (36.4-46.3); Red Blood Count 3.42 M/uL (4.20-5.40); White Blood Count 13.71 K/ul (4.8-10.8)
[2023-12-04] MEDS: PRENATAL VITAMIN 1 TAB PO SCH (07:47)
[2023-12-04] MEDS: FERROUS SULFATE 325 MG TAB PO SCH (07:47)
--- NOTE | 2023-12-04 09:00 | Obstetrical Progress Note ---
Date of Service December 04, 2023 Assessment & Plan Admission and Anticipated Discharge Date Admission Date: December 03, 2023 Subjective Patient is seen and examined. She feels well, no complaints other than being tired. Pain is under control with oral meds. Ambulating without dizziness Voiding without difficulty Tolerating regular diet with out N&V Flatus + BM neg Bleeding is minimal No fever/ chills/ CP/ SOB/ N&V/ Leg pain Bottle feeding without problems Vital Signs Temp Pulse Resp BP Pulse Ox O2 Del Method 12/04/23 08:20 37.0 C 86 16 133/83 98 Room Air 12/04/23 03:20 36.8 C 78 20 130/74 98 Room Air 12/04/23 03:20 20 98 12/04/23 02:20 20 96 12/04/23 01:20 16 95 12/04/23 00:20 20 96 12/03/23 23:20 20 98 12/03/23 23:20 36.7 C 74 20 121/69 98 Room Air 12/03/23 22:00 16 98 12/03/23 22:00 16 98 12/03/23 21:00 16 98 12/03/23 21:00 76 16 121/69 Room Air Lab Results 12/03/23 12/03/23 12/04/23 Range/Units 05:39 05:42 06:07 WBC 15.03 H 13.71 H (4.8-10.8) K/ul RBC 4.31 3.42 L (4.20-5.40) M/uL Hgb 12.8 10.2 L (12.0-16.0) g/dl Hct 38.8 30.9 L (37.0-47.0) % MCV 90.0 90.4 (80.0-100.0) fL MCH 29.7 29.8 (25.0-34.0) pg MCHC 33.0 33.0 (32.0-36.0) g/dL RDW Std Deviation 46.9 H 47.1 H (36.4-46.3) fL RDW Coeff of Ambar 14.3 14.3 (11.5-14.5) % Plt Count 295 224 (130-400) K/uL MPV 9.3 L 9.6 (9.4-12.4) fL Immature Gran % (Auto) 0.7 1.0 % Neut % (Auto) 66.7 73.8 % Lymph % (Auto) 24.8 16.3 % [place] % (Auto) 6.2 7.1 % Eos % (Auto) 1.3 1.5 % Baso % (Auto) 0.3 0.3 % Neut # (Auto) 10.02 H 10.13 H (1.40-6.50) K/uL Lymph # (Auto) 3.73 H 2.23 (1.20-3.40) K/uL [place] # (Auto) 0.93 H 0.97 H (0.11-0.59) K/uL Eos # (Auto) 0.19 0.20 (0.00-0.50) K/uL Baso # (Auto) 0.05 0.04 (0.00-0.20) K/uL Immature Gran # (Auto) 0.11 0.14 (0.01-0.20) K/uL Blood Type O Positive Antibody Screen NEGATIVE Crossmatch See Detail PE: General: Alert, orientedx3, NAD CVS: S1S2 RRR Lungs; CTAB Abd: soft, NT, ND, BS+, fundus firm, below Umbilicus Incision/MICHAEL dressing: Clean, dry, intact Perineum intact, Lochia rubra minimal Ext; NT, no edema, Homans sign/ neg/ neg AP: 38 yo s/p RC Section+BTL, pod# 1 VSS Afebrile doing well Continue routine postop care Encourage ambulation, PO intake All questions were answered Anticipate D/C home tomorrow Results & Data Vital Signs (Past 12 Hours) Vital Signs Temp Pulse Resp BP Pulse Ox O2 Del Method 12/04/23 08:20 37.0 C 86 16 133/83 98 Room Air 12/04/23 03:20 36.8 C 78 20 130/74 98 Room Air 12/04/23 03:20 20 98 12/04/23 02:20 20 96 12/04/23 01:20 16 95 12/04/23 00:20 20 96 12/03/23 23:20 20 98 12/03/23 23:20 36.7 C 74 20 121/69 98 Room Air 12/03/23 22:00 16 98 12/03/23 22:00 16 98 12/03/23 21:00 16 98 12/03/23 21:00 76 16 121/69 Room Air
[2023-12-04] MEDS: bisacodyL 5 MG TABEC PO SCH (20:25)
[2023-12-05] MEDS: MoRPHine SULFATE PF 1 MG/ML 10 ML AMP/VIAL INT SPINAL ONE (00:39)
[2023-12-05] MEDS: DIPHTHER/TETAN/PERTUS Vaccine (Tdap, Adol/Adult) 0.5mL IM ONE (00:39)
[2023-12-05] MEDS: SODIUM CHLORIDE 0.9% 1,000 ML IV SCH (02:22)
[2023-12-05] MEDS: LACTATED RINGER'S 1,000 ML IV SCH ×2 (02:23)
[2023-12-05 06:40] LABS: Basophils # (auto) 0.02 K/uL (0.00-0.20); Basophils % (auto) 0.2 %; Eosinophils # (auto) 0.26 K/uL (0.00-0.50); Eosinophils % (auto) 2.1 %; Hematocrit (blood only) 30.3 % (37.0-47.0); Hemoglobin 10.3 g/dl (12.0-16.0); Immature Granulocytes # (auto) 0.11 K/uL (0.01-0.20); Immature Granulocytes % (auto) 0.9 %; Lymphocytes # (auto) 2.76 K/uL (1.20-3.40); Lymphocytes % (auto) 22.7 %; Mean Corpuscular Hemoglobin 30.4 pg (25.0-34.0); Mean Corpuscular Volume 89.4 fL (80.0-100.0); Mean Platelet Volume 9.5 fL (9.4-12.4); Monocytes # (auto) 1.01 K/uL (0.11-0.59); Monocytes % (auto) 8.3 %; Neutrophils % (auto) 65.8 %; Platelet Count 237 K/uL (130-400); RDW Coefficient of Variation 14.4 % (11.5-14.5); RDW Standard Deviation 46.7 fL (36.4-46.3); Red Blood Count 3.39 M/uL (4.20-5.40); White Blood Count 12.16 K/ul (4.8-10.8)
--- NOTE | 2023-12-05 07:31 | Obstetrical Progress Note ---
Date of Service December 05, 2023 Assessment & Plan Admission and Anticipated Discharge Date Admission Date: December 03, 2023 Subjective Patient is seen and examined. She feels well, no complaints. Pain is under control with oral meds. Ambulating without dizzinesss Voiding without difficulty Tolerating regular diet with out N&V Flatus + Bleeding is minimal No fever/ chills/ CP/ SOB/ N&V/ Leg pain Vital Signs Temp Pulse Resp BP Pulse Ox O2 Del Method 12/05/23 00:55 127/79 12/05/23 00:41 36.6 C 87 20 140/89 97 Room Air 12/04/23 20:20 36.7 C 87 18 136/78 96 Room Air 12/04/23 16:10 37.0 C 86 16 136/97 96 Room Air 12/04/23 08:20 37.0 C 86 16 133/83 98 Room Air Intake and Output 12/04/23 12/05/23 12/05/23 22:59 06:59 14:59 Intake Total 1072.5 / 1072.5 Balance 1072.5 / 1072.5 Intake: IV 1072.5 / 1072.5 Lactated Ringer's 1,000 ml @ 1000 / 1000 999 mls/hr IV .Q1H1M TANNER Rx#: [id number] ceFAZolin 3000MG 72.5 ml @ 130 72.5 / 72.5 mls/hr IV PREOP STA Rx#: [id number] Lab Results 12/03/23 12/03/23 12/04/23 Range/Units 05:39 05:42 06:07 WBC 15.03 H 13.71 H (4.8-10.8) K/ul RBC 4.31 3.42 L (4.20-5.40) M/uL Hgb 12.8 10.2 L (12.0-16.0) g/dl Hct 38.8 30.9 L (37.0-47.0) % MCV 90.0 90.4 (80.0-100.0) fL MCH 29.7 29.8 (25.0-34.0) pg MCHC 33.0 33.0 (32.0-36.0) g/dL RDW Std Deviation 46.9 H 47.1 H (36.4-46.3) fL RDW Coeff of Ambar 14.3 14.3 (11.5-14.5) % Plt Count 295 224 (130-400) K/uL MPV 9.3 L 9.6 (9.4-12.4) fL Immature Gran % (Auto) 0.7 1.0 % Neut % (Auto) 66.7 73.8 % Lymph % (Auto) 24.8 16.3 % [place] % (Auto) 6.2 7.1 % Eos % (Auto) 1.3 1.5 % Baso % (Auto) 0.3 0.3 % Neut # (Auto) 10.02 H 10.13 H (1.40-6.50) K/uL Lymph # (Auto) 3.73 H 2.23 (1.20-3.40) K/uL [place] # (Auto) 0.93 H 0.97 H (0.11-0.59) K/uL Eos # (Auto) 0.19 0.20 (0.00-0.50) K/uL Baso # (Auto) 0.05 0.04 (0.00-0.20) K/uL Immature Gran # (Auto) 0.11 0.14 (0.01-0.20) K/uL Blood Type O Positive Antibody Screen NEGATIVE Crossmatch See Detail 12/05/23 Range/Units 05:59 WBC 12.16 H (4.8-10.8) K/ul RBC 3.39 L (4.20-5.40) M/uL Hgb 10.3 L (12.0-16.0) g/dl Hct 30.3 L (37.0-47.0) % MCV 89.4 (80.0-100.0) fL MCH 30.4 (25.0-34.0) pg MCHC 34.0 (32.0-36.0) g/dL RDW Std Deviation 46.7 H (36.4-46.3) fL RDW Coeff of Ambar 14.4 (11.5-14.5) % Plt Count 237 (130-400) K/uL MPV 9.5 (9.4-12.4) fL Immature Gran % (Auto) 0.9 % Neut % (Auto) 65.8 % Lymph % (Auto) 22.7 % [place] % (Auto) 8.3 % Eos % (Auto) 2.1 % Baso % (Auto) 0.2 % Neut # (Auto) 8.00 H (1.40-6.50) K/uL Lymph # (Auto) 2.76 (1.20-3.40) K/uL [place] # (Auto) 1.01 H (0.11-0.59) K/uL Eos # (Auto) 0.26 (0.00-0.50) K/uL Baso # (Auto) 0.02 (0.00-0.20) K/uL Immature Gran # (Auto) 0.11 (0.01-0.20) K/uL Blood Type Antibody Screen Crossmatch PE: General: Alert, orientedx3, NAD CVS: S1S2 RRR Lungs; CTAB Abd: soft, NT, ND, BS+, fundus firm, below Umbilicus Incision/ MICHAEL Dressing: Clean, dry, intact Perineum intact, Lochia rubra minimal Ext; NT, no edema AP: 38 yo s/p C Section, pod# 2 VSS Afebrile doing well Continue routine postop care Encourage ambulation, PO intake All questions were answered D/C home, f/u in office Results & Data Vital Signs (Past 12 Hours) Vital Signs Temp Pulse Resp BP Pulse Ox O2 Del Method 12/05/23 00:55 127/79 12/05/23 00:41 36.6 C 87 20 140/89 97 Room Air 12/04/23 20:20 36.7 C 87 18 136/78 96 Room Air
[2023-12-05] MEDS ORDERED: bisacodyL 10 MG SUPP PR PRN (08:50)
== END 2023-12-05 13:30 | disposition home or self-care (01) | DRG 784 ==
LOC: 4S1 12-03 05:31 → EDSTATUS 12-03 07:30 → 4E1 12-03 12:14